=== PATIENT | male | born 1965 | race Caucasian/White ===

== ENCOUNTER 2024-02-05 10:21 | Outpatient (RCR) | payer OTHER, SELFPAY | END 2024-03-18 13:39 | disposition home or self-care (01) | LOC: OT 10:21 | DX: G81.91 Hemiplegia, unspecified affecting right dominant side (principal); M21.371 Foot drop, right foot; Z74.09 Other reduced mobility | CPT/HCPCS: 97140; 97167; 97530 ==

== ENCOUNTER 2024-02-09 10:18 | Outpatient (RCR) | payer OTHER, SELFPAY | END 2024-03-11 15:38 | disposition home or self-care (01) | LOC: PT 10:18 | DX: G81.91 Hemiplegia, unspecified affecting right dominant side (principal); Z74.09 Other reduced mobility; M21.371 Foot drop, right foot | CPT/HCPCS: 97110; 97112; 97161; 97530 ==

== ENCOUNTER 2024-02-22 11:48 | Observation (INO) | payer OTHER, SELFPAY ==
[2024-02-22] VITALS (37 sets, daily range): BP systolic 99–146; BP diastolic 68–95; PULSE 103–116; TEMP 36.7–37.5; O2SAT 94–100; BMI 22.2; BMI 24.9
[2024-02-22 11:59] LABS: Glucometer 201 mg/dL (74-106)
--- NOTE | 2024-02-22 12:04 | XR_ITS ---
The [address] [address] Patient Name: DAISY DEMARCO MRN: [id number] date: 1965 Sex: M Assigned Patient Location: ER Current Patient Location: ER Accession/Order Number: [id number] Exam Date: 02/22/2024 12:10 Report Date: 02/22/2024 12:32 At the request of: TAMIKO MARTINEZ Procedure: XR chest 1V EXAM: XR chest 1V at 1208 hours HISTORY: ams cough COMPARISON: None. TECHNIQUE: AP upright portable chest x-ray FINDINGS: There is elevation of the left hemidiaphragm. No acute infiltrate, effusion or pneumothorax is identified. Shallow inspiration is noted. The heart does not appear to be grossly enlarged and the vasculature is not distended. There is an infusion catheter in place on the right with the tip just within the right ventricle. The osseous structures are grossly intact. XR/XR chest 1V IMPRESSION: No apparent acute infiltrate or evidence of cardiac decompensation. The right-sided infusion catheter is in place. Electronically authenticated by: IKER LOPEZ Date: 02/22/2024 12:32
--- NOTE | 2024-02-22 12:04 | ECG_ITS ---
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
--- NOTE | 2024-02-22 12:05 | CT_ITS ---
The [address] [address] Patient Name: DAISY DEMARCO MRN: [id number] date: 1965 Sex: M Assigned Patient Location: ER Current Patient Location: ER Accession/Order Number: [id number] Exam Date: 02/22/2024 12:10 Report Date: 02/22/2024 12:37 At the request of: TAMIKO MARTINEZ Procedure: CT stroke head/brain wo con EXAM: CT stroke head/brain wo con HISTORY: ams COMPARISON: None available at the time of dictation. TECHNIQUE: Axial unenhanced CT images were obtained through the brain. Individualized dose optimization technique was used for the performed procedure by employing the following: Automated exposure control, adjustment of the mA and/or kV according to patient's size, and/or the use of the iterative construction technique. Coronal and sagittal reformats were performed. FINDINGS: Large area of encephalomalacia of the left MCA territory involving the left frontal parietal and temporal lobes. There is some cortical hyperdensity of the residual areas of cortex of the left parietal and frontal lobes, most consistent with residual cortical calcification. No definitive area of hemorrhage. No midline shift. Vora-white matter differentiation is preserved. Ex vacuo dilation of the left lateral ventricle. No acute osseous abnormality. Paranasal sinuses are clear. Mastoid air cells are open. Orbits are normal. Left sided craniotomy. CT/CT stroke head/brain wo con IMPRESSION: 1. No acute intracranial abnormality. No acute intracranial infarct visualized by this modality. (MRI is more sensitive). 2. Large area of encephalomalacia of the left MCA territory involving the left frontal parietal and temporal lobes. There is some cortical hyperdensity of the residual areas of cortex of the left parietal and frontal lobes, most consistent with residual cortical calcification. Electronically authenticated by: RIVERA MEYER Date: 02/22/2024 12:37
[2024-02-22 12:13] LABS: Hematocrit 39.8 % (42.0-54.0); Hemoglobin 13.9 g/dL (14.0-18.0); Mean Corpuscular HGB Conc 34.9 g/dL (29.9-35.2); Mean Corpuscular Volume 88.8 fL (80.0-94.0); Mean Platelet Volume 9.1 fL (9.5-13.5); Platelet Count 145 10^3/uL (150-450); Red Blood Count 4.48 10^6/uL (4.70-6.10); Red Cell Distribution Width 12.7 % (11.0-15.0); White Blood Count 6.8 10^3/uL (4.0-11.0)
[2024-02-22 12:19] LABS: INR 1.07; Prothrombin Time 11.3 sec (9.0-11.6)
[2024-02-22 12:31] LABS: Alanine Aminotransferase 23 U/L (16-63); Albumin Globulin Ratio 0.9; Albumin Level 3.5 g/dL (3.4-5.0); Alkaline Phosphatase 143 U/L (46-116); Anion Gap 13.5; Aspartate Amino Transferase 17 U/L (15-37); BUN Creatinine Ratio 9.5; Bilirubin Total 1.6 mg/dL (0.2-1.0); Calcium 9.3 mg/dL (8.5-10.1); Carbon Dioxide 27.4 mmol/L (21.0-32.0); Chloride 99 mmol/L (98-107); Estimated GFR (African America >60 (>=60); Estimated GFR (Non-African Ame >60 (>=60); Globulin 3.7 g/dL; Glucose 203 mg/dL (74-106); Potassium 3.9 mmol/L (3.5-5.1); Sodium 136 mmol/L (136-145); Total Protein 7.2 g/dL (6.4-8.2); Troponin I High Sensitivity 6.8 pg/mL (4.0-76.1)
[2024-02-22 12:34] LABS: Lactate/Lactic Acid 2.1 mmol/L (0.4-2.0)
[2024-02-22 12:59] LABS: Magnesium 1.3 mg/dL (1.8-2.4)
[2024-02-22] MEDS: 0.9 % SODIUM CHLORIDE 1,000 ML 500 ML IV (13:05)
[2024-02-22 13:09] LABS: Lymphocytes Absolute Manual 0.81 10^3/uL (1.20-3.80); Segmented Neut Absolute Manual 5.98 10^3/uL (1.4-6.5)
--- NOTE | 2024-02-22 13:34 | CT_ITS ---
The [address] [address] Patient Name: DAISY DEMARCO MRN: [id number] date: 1965 Sex: M Assigned Patient Location: ER Current Patient Location: ER Accession/Order Number: [id number] Exam Date: 02/22/2024 13:58 Report Date: 02/22/2024 15:32 At the request of: TAMIKO MARTINEZ Procedure: CT angio head CT ANGIOGRAPHY NECK and HEAD: 02/22/2024 1:58 PM EDT Clinical History:neurological deficit Comparison: None available . Contrast-enhanced helically acquired data per protocol. From this dataset volumetric recons in MIP mode were generated and reviewed. 3-D images were rendered on a separate workstation. NASCET criteria were utilized. INNOMINATE: Widely patent. RIGHT SUBCLAVIAN: Widely patent. RIGHT VERTEBRAL: Medium-sized blood vessel with modest disease at its origin. It is widely patent throughout the rest of its extradural course LEFT SUBCLAVIAN: Moderate disease along its proximal aspects. LEFT VERTEBRAL: A small to medium-sized blood vessel is partially obscured near its origin by artifact from juxtaposed dense venous contrast. Further distally it is unremarkable throughout the rest of its extradural course. RIGHT CAROTID SYSTEM: CCA demonstrates fairly mild undulating patchy disease.. There is soft and calcific disease at the bifurcation extending into the proximal aspects of the ICA. Less than 40% diameter reduction proximal ICA. High cervical ICA is widely patent. The ECA demonstrates mild narrowing along its proximal aspects. LEFT CAROTID SYSTEM: CCA demonstrates mild eccentric disease in its mid to distal aspects. There is somewhat concentric soft disease at the bifurcation extending into the very proximal aspects of the ICA and ECA. Less than 40% diameter reduction origin and very proximal. Mid and distal cervical ICA is widely patent. ECA demonstrates fairly mild narrowing along its proximal aspects. INTRACRANIAL: VERTEBRALS: The right is a medium-sized blood vessel with short segment mild disease. The left is a small to medium-sized blood vessel with mild disease. It terminates as PICA. PICAs: Patent. BASILAR: A medium-sized blood vessel with moderate short segment narrowing by soft disease along its proximal aspects. AICAs: Not seen SUPERIOR CEREBELLARS: Patent POSTERIOR CEREBRALS: Right P1 is aplastic. Left P1 is hypoplastic. P2 segments are patent and fairly symmetric. INTRACRANIAL ICAs: Patent. Patchy calcific disease on both sides. Areas of mild to modest narrowing bilaterally, left a little greater than right OPHTHALMIC ARTERIES: Patent. ANTERIOR CEREBRALS: A1 segments are patent. Acomm is longitudinally oriented and patent. A2 segments are patent and symmetric. MIDDLE CEREBRALS: Right M1 is unremarkable. Insular loops of the right MCA are grossly unremarkable in caliber and in number. Left M1 significantly tapers just distal to its origin. A tiny vessel off the amputated left M1 segment segments extends into the insular region. No other insular loops are contrast opacified. P-COMMS: Medium-sized vessels. Moderate short segment narrowing posterior aspect right P-comm and modest to moderate disease distal at the junction of left P1 and P2. OTHER: None CT/CT angio head IMPRESSION: 1. No moderate or significant disease involving an extradural cerebral vessel. Stenoses at both cervical carotid bifurcations as described. 2. 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 It does give off a solitary tiny artery which extends into the insular region. This all goes along with extensive chronic left MCA territory infarct. 3. Moderate stenosis proximal basilar and in the posterior aspects right P-comm. Modest to moderate disease junction left P1 and P2. All CT scans at this facility use dose modulation, iterative reconstruction, and/or weight based dosing when appropriate to reduce radiation dose to as low as reasonably achievable. Electronically authenticated by: IZABELA FREITAS Date: 02/22/2024 15:32
--- NOTE | 2024-02-22 13:34 | CT_ITS ---
The [address] [address] Patient Name: DAISY DEMARCO MRN: [id number] date: 1965 Sex: M Assigned Patient Location: ER Current Patient Location: ER Accession/Order Number: [id number] Exam Date: 02/22/2024 13:58 Report Date: 02/22/2024 15:32 At the request of: TAMIKO MARTINEZ Procedure: CT angio neck CT ANGIOGRAPHY NECK and HEAD: 02/22/2024 1:58 PM EDT Clinical History:neurological deficit Comparison: None available . Contrast-enhanced helically acquired data per protocol. From this dataset volumetric recons in MIP mode were generated and reviewed. 3-D images were rendered on a separate workstation. NASCET criteria were utilized. INNOMINATE: Widely patent. RIGHT SUBCLAVIAN: Widely patent. RIGHT VERTEBRAL: Medium-sized blood vessel with modest disease at its origin. It is widely patent throughout the rest of its extradural course LEFT SUBCLAVIAN: Moderate disease along its proximal aspects. LEFT VERTEBRAL: A small to medium-sized blood vessel is partially obscured near its origin by artifact from juxtaposed dense venous contrast. Further distally it is unremarkable throughout the rest of its extradural course. RIGHT CAROTID SYSTEM: CCA demonstrates fairly mild undulating patchy disease.. There is soft and calcific disease at the bifurcation extending into the proximal aspects of the ICA. Less than 40% diameter reduction proximal ICA. High cervical ICA is widely patent. The ECA demonstrates mild narrowing along its proximal aspects. LEFT CAROTID SYSTEM: CCA demonstrates mild eccentric disease in its mid to distal aspects. There is somewhat concentric soft disease at the bifurcation extending into the very proximal aspects of the ICA and ECA. Less than 40% diameter reduction origin and very proximal. Mid and distal cervical ICA is widely patent. ECA demonstrates fairly mild narrowing along its proximal aspects. INTRACRANIAL: VERTEBRALS: The right is a medium-sized blood vessel with short segment mild disease. The left is a small to medium-sized blood vessel with mild disease. It terminates as PICA. PICAs: Patent. BASILAR: A medium-sized blood vessel with moderate short segment narrowing by soft disease along its proximal aspects. AICAs: Not seen SUPERIOR CEREBELLARS: Patent POSTERIOR CEREBRALS: Right P1 is aplastic. Left P1 is hypoplastic. P2 segments are patent and fairly symmetric. INTRACRANIAL ICAs: Patent. Patchy calcific disease on both sides. Areas of mild to modest narrowing bilaterally, left a little greater than right OPHTHALMIC ARTERIES: Patent. ANTERIOR CEREBRALS: A1 segments are patent. Acomm is longitudinally oriented and patent. A2 segments are patent and symmetric. MIDDLE CEREBRALS: Right M1 is unremarkable. Insular loops of the right MCA are grossly unremarkable in caliber and in number. Left M1 significantly tapers just distal to its origin. A tiny vessel off the amputated left M1 segment segments extends into the insular region. No other insular loops are contrast opacified. P-COMMS: Medium-sized vessels. Moderate short segment narrowing posterior aspect right P-comm and modest to moderate disease distal at the junction of left P1 and P2. OTHER: None CT/CT angio neck IMPRESSION: 1. No moderate or significant disease involving an extradural cerebral vessel. Stenoses at both cervical carotid bifurcations as described. 2. 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 It does give off a solitary tiny artery which extends into the insular region. This all goes along with extensive chronic left MCA territory infarct. 3. Moderate stenosis proximal basilar and in the posterior aspects right P-comm. Modest to moderate disease junction left P1 and P2. All CT scans at this facility use dose modulation, iterative reconstruction, and/or weight based dosing when appropriate to reduce radiation dose to as low as reasonably achievable. Electronically authenticated by: IZABELA FREITAS Date: 02/22/2024 15:32
[2024-02-22 13:39] LABS: Bilirubin Urine NEGATIVE (NEGATIVE); Blood Urine NEGATIVE (NEGATIVE); Clarity Urine CLEAR (CLEAR); Color Urine YELLOW (YELLOW); Glucose Urine UA 100 mg/dL (NEGATIVE); Ketones Urine NEGATIVE (NEGATIVE); Leukocyte Esterase Urine NEGATIVE (NEGATIVE); Nitrite Urine NEGATIVE (NEGATIVE); Protein Urine TRACE mg/dL (NEG/TRACE); Specific Gravity Urine 1.015 (1.005-1.025); Urobilinogen Urine 0.2 EU/dL (0.2-1.0)
[2024-02-22 13:45] LABS: Urine Microscopic Indicated NO
[2024-02-22 13:57] LABS: Internal Control Within Normal Limits; SARS-CoV-2 Ag NEGATIVE (NEGATIVE)
[2024-02-22] MEDS: MAGNESIUM SULFATE IN WATER 2 GM/50 ML PREMIX IV (14:16)
[2024-02-22] MEDS: KETOROLAC TROMETHAMINE 30 MG/ML VIAL 15 MG IVP (14:17)
[2024-02-22] MEDS: BENZOCAINE 30 ML, lidocaine HCL 15 ML MM (14:18)
--- NOTE | 2024-02-22 14:57 | ED_ITS ---
HPI - Altered Mental Status General Chief Complaint: Altered Mental Status Stated Complaint: stroke Time Seen by Provider: 02/22/24 11:54 Source: patient Mode of arrival: walk-in History of Present Illness HPI narrative: The patient is presenting to us after his called the EMS, have a history of a stroke 2 years ago with a remaining weakness in the upper right extremity as well as the lower extremity. The patient mostly dependent on his except for using his left hand to feed himself. According to the today when he woke up at 11 AM and she presented almost around 12 PM to us she noted that he is more weak and he is falling asleep very quickly. The patient had no difficulty speaking more than his baseline as well as no specific weakness but generalized weakness. He did complain of coughing over the last few days, he also have some dental pain Related Data Home Medications ?Medication ?Instructions ?Recorded ?Confirmed atorvastatin 40 mg tablet 40 mg PO DAILY 02/22/24 02/22/24 baclofen 5 mg tablet 5 mg PO Q12H PRN spasms 02/22/24 02/22/24 levetiracetam 500 mg tablet 500 mg PO Q12H 02/22/24 02/22/24 metformin 500 mg tablet,extended 500 mg PO DAILY 02/22/24 02/22/24 release 24 hr mirtazapine 45 mg tablet 45 mg PO .QHS 02/22/24 02/22/24 tamsulosin 0.4 mg capsule 0.4 mg PO DAILY 02/22/24 02/22/24 Allergies Allergy/AdvReac Type Severity Reaction Status Date / Time No Known Drug Allergies Allergy Verified 02/22/24 11:52 Review of Systems ROS Status of ROS 10 or more systems reviewed and unremark able except as noted in history and below Exam Narrative Exam Narrative: Nurses notes and vital signs reviewed and patient is not hypoxic. General: Well-appearing and in no apparent distress. Skin: Warm, dry, no pallor noted. No rash. Head: Normocephalic, atraumatic. Neck: Supple, non-tender. Eye: Pupils are equal, round and EOMI. No scleral icterus. Ears, Nose, Mouth, and Throat: Very poor dental hygiene with a decayed tooth mostly in the tooth #20 as well as 19 with tenderness on palpation Cardiovascular: Regular Rate and Rhythm without murmur, gallop or rub. Respiratory: No accessory muscle use or respiratory distress. Lungs are clear to auscultation, no wheezing, rales or rhonchi Chest Wall: no tenderness Back: No midline thoracic or lumbar vertebral tenderness. No CVA tenderness Musculoskeletal: normal ROM, no calf or popliteal tenderness, no lower extremity edema/swelling GI: Abdomen is soft, non-distended. Normal bowel sounds. No masses appreciated. No tenderness to palpation. No rebound, guarding, or rigidity noted. Neurological: The patient is oriented x 4 but he have right upper and lower extremity complete weakness with no ability for elevation or use, left side was completely normal with a NIH score is 9 due to his deficits from previous stroke Constitutional Vital Signs, click to edit/add: Last Vital Signs Temp 98.0 F 02/22/24 11:52 Pulse 106 H 02/22/24 15:00 Resp 17 02/22/24 15:00 BP 132/80 02/22/24 14:30 Pulse Ox 100 02/22/24 13:50 O2 Del Method Room Air 02/22/24 11:52 Course Vital Signs Vital signs: Vital Signs Temperature 98.0 F 02/22/24 11:52 Pulse Rate 116 H 02/22/24 11:52 Respiratory Rate 18 02/22/24 11:52 Blood Pressure 140/95 H 02/22/24 11:52 Pulse Oximetry 96 02/22/24 11:52 Oxygen Delivery Method Room Air 02/22/24 11:52 Temperature 98.0 F 02/22/24 11:52 Pulse Rate 106 H 02/22/24 15:00 Respiratory Rate 17 02/22/24 15:00 Blood Pressure 132/80 02/22/24 14:30 Pulse Oximetry 100 02/22/24 13:50 Oxygen Delivery Method Room Air 02/22/24 11:52 MDM - Altered Mental Status MDM Narrative Medical decision making narrative: The patient EKG upon presentation is showing sinus tachycardia with a heart rate of [address] elevation or depression CBC showed no acute pathology the chemistry was showing magnesium of 1.3 and lactic acid 2.1 Urinalysis showed no infection as well as chest x-ray CT of the head shows significant changes due to the old stroke and the patient case was discussed with in neurology service The plan was to get a CT angio of the head and neck to rule out any new stroke in the outside where he had a stroke to begin with 2 years ago The patient tachycardia get better with IV fluid and he also was provided with the Toradol for dental care as well as local pain medication for the pain in his teeth Troponin was repeated twice and it was negative The patient CT angio of the head and neck were discussed with Dr. Montoya and for now she just recommended the patient be admitted for further workup. The patient repeated lactic was elevated at we will repeated again just to make sure that the patient was provided IV fluid and there is no source of infection at the moment Patient care was discussed with Dr. Mcnair and he agreed on admitting the patient for further workup Lab Data Labs: Lab Results 02/22/24 02/22/24 02/22/24 Range/Units 11:57 12:00 13:26 WBC 6.8 (4.0-11.0) 10^3/uL RBC 4.48 L (4.70-6.10) 10^6/uL Hgb 13.9 L (14.0-18.0) g/dL Hct 39.8 L (42.0-54.0) % MCV 88.8 (80.0-94.0) fL MCH 31.0 (25.9-34.0) pg MCHC 34.9 (29.9-35.2) g/dL RDW 12.7 (11.0-15.0) % Plt Count 145 L (150-450) 10^3/uL MPV 9.1 L (9.5-13.5) fL Seg Neuts % (Manual) 88.0 H (43.0-75.0) Lymphocytes % (Manual) 12.0 L (20.5-60.0) % Monocytes % (Manual) 0.0 L (1.7-12.0) % Eosinophils % (Manual) 0.0 L (0.9-7.0) % Basophils % (Manual) 0.0 L (0.2-2.0) % Neutrophils # (Manual) 5.98 (1.4-6.5) 10^3/uL Lymphocytes # (Manual) 0.81 L (1.20-3.80) 10^3/uL Monocytes # (Manual) 0.00 L (0.30-0.80) 10^3/uL Eosinophils # (Manual) 0.00 (0.00-0.70) 10^3/uL Basophils # (Manual) 0.00 (0.00-0.10) 10^3/uL PT 11.3 (9.0-11.6) sec INR 1.07 Sodium 136 (136-145) mmol/L Potassium 3.9 (3.5-5.1) mmol/L Chloride 99 (98-107) mmol/L Carbon Dioxide 27.4 (21.0-32.0) mmol/L Anion Gap 13.5 BUN 10.0 (7.0-18.0) mg/dL Creatinine 1.05 (0.70-1.30) mg/dL Est GFR ( Amer) >60 (>=60) Est GFR (Non-Af Amer) >60 (>=60) BUN/Creatinine Ratio 9.5 Glucose 203 H (74-106) mg/dL Lactate 2.1 H (0.4-2.0) mmol/L Calcium 9.3 (8.5-10.1) mg/dL Magnesium 1.3 L (1.8-2.4) mg/dL Total Bilirubin 1.6 H (0.2-1.0) mg/dL AST 17 (15-37) U/L ALT 23 (16-63) U/L Alkaline Phosphatase 143 H (46-116) U/L Troponin I High Sens 6.8 (4.0-76.1) pg/mL Total Protein 7.2 (6.4-8.2) g/dL Albumin 3.5 (3.4-5.0) g/dL Globulin 3.7 g/dL Albumin/Globulin Ratio 0.9 Urine Color (YELLOW) Urine Clarity (CLEAR) Urine pH (5.0-9.0) Ur Specific [place] (1.005-1.025) Urine Protein (NEG/TRACE) mg/dL Urine Glucose (UA) (NEGATIVE) mg/dL Urine Ketones (NEGATIVE) mg/dL Urine Occult Blood (NEGATIVE) Urine Nitrite (NEGATIVE) Urine Bilirubin (NEGATIVE) Urine Urobilinogen (0.2-1.0) EU/dL Ur Leukocyte Esterase (NEGATIVE) SARS-CoV-2 Ag (CV2AG) Negative (NEGATIVE) POC Glucose 201 H (74-106) mg/dL 02/22/24 02/22/24 02/22/24 Range/Units 13:31 14:50 15:19 WBC (4.0-11.0) 10^3/uL RBC (4.70-6.10) 10^6/uL Hgb (14.0-18.0) g/dL Hct (42.0-54.0) % MCV (80.0-94.0) fL MCH (25.9-34.0) pg MCHC (29.9-35.2) g/dL RDW (11.0-15.0) % Plt Count (150-450) 10^3/uL MPV (9.5-13.5) fL Seg Neuts % (Manual) (43.0-75.0) Lymphocytes % (Manual) (20.5-60.0) % Monocytes % (Manual) (1.7-12.0) % Eosinophils % (Manual) (0.9-7.0) % Basophils % (Manual) (0.2-2.0) % Neutrophils # (Manual) (1.4-6.5) 10^3/uL Lymphocytes # (Manual) (1.20-3.80) 10^3/uL Monocytes # (Manual) (0.30-0.80) 10^3/uL Eosinophils # (Manual) (0.00-0.70) 10^3/uL Basophils # (Manual) (0.00-0.10) 10^3/uL PT (9.0-11.6) sec INR Sodium (136-145) mmol/L Potassium (3.5-5.1) mmol/L Chloride (98-107) mmol/L Carbon Dioxide (21.0-32.0) mmol/L Anion Gap BUN (7.0-18.0) mg/dL Creatinine (0.70-1.30) mg/dL Est GFR ( Amer) (>=60) Est GFR (Non-Af Amer) (>=60) BUN/Creatinine Ratio Glucose (74-106) mg/dL Lactate 3.3 H* (0.4-2.0) mmol/L Calcium (8.5-10.1) mg/dL Magnesium (1.8-2.4) mg/dL Total Bilirubin (0.2-1.0) mg/dL AST (15-37) U/L ALT (16-63) U/L Alkaline Phosphatase (46-116) U/L Troponin I High Sens 8.4 (4.0-76.1) pg/mL Total Protein (6.4-8.2) g/dL Albumin (3.4-5.0) g/dL Globulin g/dL Albumin/Globulin Ratio Urine Color Yellow (YELLOW) Urine Clarity Clear (CLEAR) Urine pH 6.0 (5.0-9.0) Ur Specific [place] 1.015 (1.005-1.025) Urine Protein Trace (NEG/TRACE) mg/dL Urine Glucose (UA) 100 A (NEGATIVE) mg/dL Urine Ketones Negative (NEGATIVE) mg/dL Urine Occult Blood Negative (NEGATIVE) Urine Nitrite Negative (NEGATIVE) Urine Bilirubin Negative (NEGATIVE) Urine Urobilinogen 0.2 (0.2-1.0) EU/dL Ur Leukocyte Esterase Negative (NEGATIVE) SARS-CoV-2 Ag (CV2AG) (NEGATIVE) POC Glucose (74-106) mg/dL Discharge Plan Discharge Chief Complaint: Altered Mental Status Clinical Impression: Altered mental status, Generalized muscle weakness, Neurological deficit present Patient Disposition: Admitted As Inpatient Time of Disposition Decision: 15:56
[2024-02-22 15:47] LABS: Troponin I High Sensitivity 8.4 pg/mL (4.0-76.1)
[2024-02-22 15:50] LABS: Lactate/Lactic Acid 3.3 mmol/L (0.4-2.0)
--- NOTE | 2024-02-22 16:52 | P.HP_ITS ---
HPI H&P: HPI History of Present Illness Chief complaint: stroke, GENERALIZED WEAKNESS, STROKE-LIKE SYMPTOMS Narrative: Last several days patient's had issues with sleeping secondary to abscessed tooth. Slept well last night, woke up this morning late does not normally have to wake up and she did this time, difficulty standing, was sitting at the bedside trying to urinate and fell backwards. Other than being fatigued did not notice any other focal neurological deficits. In ER stroke workup was completed, stroke team consulted, no evidence for new stroke noted on CT scans or on physical examination. Opioid HPI Opioid Management Most Recent Pain and Opioid Data: Last Pain Scale 5 02/22/24 14:17 Last Pain Assessment 02/22/24 17:03 Last MAR Pain Assessment 02/22/24 14:17 Last ORT Total Score 3 02/22/24 16:40 Last ORT Risk Category Low Risk 02/22/24 16:40 Review of Systems ROS Status of ROS 10 or more systems reviewed and unremark able except as noted in history and below PFSH PFS Medical History (Updated 02/22/24 @ 17:09 by Serena Biggs RN) Hyperlipidemia ?E78.5 - Hyperlipidemia, unspecified (ICD-10) Diabetes ?E11.9 - Type 2 diabetes mellitus without complications (ICD-10) Seizure disorder ?G40.909 - Epilepsy, unspecified, not intractable, without status epilepticus (ICD-10) Colon cancer ?C18.9 - Malignant neoplasm of colon, unspecified (ICD-10) CVA (cerebral vascular accident) ?I63.9 - Cerebral infarction, unspecified (ICD-10) Surgical History (Updated 02/22/24 @ 17:11 by Serena Biggs RN) History of colon resection ?Z90.49 - Acquired absence of other specified parts of digestive tract (ICD- 10) History of cranioplasty ?Z98.890 - Other specified postprocedural states (ICD-10) H/O craniotomy ?Z98.890 - Other specified postprocedural states (ICD-10) Family History (Updated 02/22/24 @ 17:13 by Serena Biggs RN) Father Family history of COPD (chronic obstructive pulmonary disease) Family history of cancer Family history of stroke Mother Family history of stroke Social History (Updated 02/22/24 @ 17:13 by Serena Biggs RN) Within the past year, how often did you have a drink containing alcohol: never Score interpretation: A score less than 4 is consistent with normal alcohol consumption. Smoking status: Former smoker Non-prescribed substance use: denies use Highest level of school completed/degree received: high school graduate Meds Home Medications and Allergies Home Medications ?Medication ?Instructions ?Recorded ?Confirmed ?Type aspirin 81 mg capsule 81 mg PO DAILY 02/22/24 02/22/24 History atorvastatin 40 mg tablet 40 mg PO DAILY 02/22/24 02/22/24 History baclofen 5 mg tablet 5 mg PO Q12H PRN spasms 02/22/24 02/22/24 History levetiracetam 500 mg tablet 500 mg PO Q12H 02/22/24 02/22/24 History loratadine 10 mg tablet 10 mg PO DAILY 02/22/24 02/22/24 History (Allerclear) metformin 500 mg tablet,extended 500 mg PO DAILY 02/22/24 02/22/24 History release 24 hr mirtazapine 45 mg tablet 45 mg PO .QHS 02/22/24 02/22/24 History tamsulosin 0.4 mg capsule 0.4 mg PO DAILY 02/22/24 02/22/24 History Allergies Allergy/AdvReac Type Severity Reaction Status Date / Time No Known Drug Allergies Allergy Verified 02/22/24 11:52 Exam Constitutional Vital Signs, click to edit/add: Last Vital Signs Temp 98.0 F 02/22/24 11:52 Pulse 104 H 02/22/24 16:40 Resp 20 02/22/24 16:30 BP 115/76 02/22/24 16:00 Pulse Ox 100 02/22/24 13:50 O2 Del Method Room Air 02/22/24 11:52 Documenting provider has reviewed patient's vital signs: yes Common normals: no apparent distress Respiratory Common normals: normal respiratory effort, no retractions and no use of accesso ry muscles Cardio Common normals: regular rate, regular rhythm and no murmurs GI Common normals: Normal to inspection, nondistended, normoactive bowel sounds present and soft to palpation; tender (Diffusely tender but may be more in the upper abdomen) Neuro Common normals: does not move all extremities (Some movement of right lower extremity, no movement of right upper extremit) Results Labs Labs: Short CBC 02/22/24 Range/Units 12:00 WBC 6.8 (4.0-11.0) 10^3/uL Hgb 13.9 L (14.0-18.0) g/dL Hct 39.8 L (42.0-54.0) % Plt Count 145 L (150-450) 10^3/uL BMP 02/22/24 12:00 Sodium 136 Potassium 3.9 Chloride 99 Carbon Dioxide 27.4 BUN 10.0 Creatinine 1.05 Glucose 203 H Calcium 9.3 Liver Function 02/22/24 Range/Units 12:00 Total Bilirubin 1.6 H (0.2-1.0) mg/dL AST 17 (15-37) U/L ALT 23 (16-63) U/L Alkaline Phosphatase 143 H (46-116) U/L Albumin 3.5 (3.4-5.0) g/dL Urine 02/22/24 Range/Units 13:31 Urine Color Yellow (YELLOW) Urine Clarity Clear (CLEAR) Urine pH 6.0 (5.0-9.0) Ur Specific [place] 1.015 (1.005-1.025) Urine Protein Trace (NEG/TRACE) mg/dL Urine Glucose (UA) 100 A (NEGATIVE) mg/dL Assessment and Plan Assessment and Plan (1) Hypomagnesemia: (2) Neurological deficit present: (3) Generalized muscle weakness: (4) Altered mental status: Plan Admission: Patient with a history of short of 2 years ago of stroke. Presented in a similar fashion. So far patient is improving per . Altered mental status severe weakness noted on admission and slowly improving. Altered mental status-slowly improving, still need to rule out possibility of a stroke. Family not wanting to be aggressive in that regard. Will currently maintain aspirin. Since no new focal neurological deficits were noted. Consider MRI scan Positive lactate with mild diffuse upper abdominal tenderness, checking on labs, consider CT scan abdomen and pelvis tomorrow, had 1 a couple months ago for follow-up on his colon cancer, will try to obtain outside records Jaw pain-possible abscessed tooth, consider CT scan of the area, starting on IV antibiotics to cover that possibility an alternate source of infection Iron deficiency anemia-monitor daily, consider Hemoccults if dropping Thrombocytopenia-monitor daily L Elevated LFTs-checking amylase and lipase, states has not had that in the past, repeat LFTs in a.m. NIDDM-insulin sliding scale Severe hypomagnesemia-supplemented in ER, repeat labs in a.m. start oral supplementation Admission findings: Altered mental status in a patient with coronary artery disease and possibly metastatic colon cancer, stopped chemotherapy 20 months ago after his stroke. Blood cultures pending, that will take 2 days, continue antibiotics, medically necessary treatment will span 2 midnights. Inpatient status.
[2024-02-22 17:45] LABS: Amylase 38 U/L (25-115)
[2024-02-22] MEDS: LACTATED RINGER'S SOLUTION 1,000 ML 100 ML IV (17:53)
[2024-02-22] MEDS: CEFTRIAXONE 1,000 MG in 0.9 % SODIUM CHLORIDE 50 ML 100 MG IV (17:54)
[2024-02-22 17:58] LABS: Glucometer 162 mg/dL (74-106)
[2024-02-22 18:08] LABS: Ammonia 31 umol/L (11-32)
[2024-02-22 19:19] LABS: Amphetamine Screen Urine NEGATIVE (NEGATIVE); Barbiturates Screen Urine NEGATIVE (NEGATIVE); Benzodiazepines Screen Urine NEGATIVE (NEGATIVE); Buprenorphine Screen Urine NEGATIVE (NEGATIVE); Cannabinoid Screen Urine NEGATIVE (NEGATIVE); Cocaine Screen Urine NEGATIVE (NEGATIVE); Methadone Screen Urine NEGATIVE (NEGATIVE); Methamphetamines Screen Urine NEGATIVE (NEGATIVE); Opiate Screen Urine NEGATIVE (NEGATIVE); Oxycodone Screen Urine NEGATIVE (NEGATIVE); Phencyclidine Screen Urine NEGATIVE (NEGATIVE); Tricyclic Antidepressant Urine NEGATIVE (NEGATIVE)
[2024-02-22 19:32] LABS: Glucometer 159 mg/dL (74-106)
[2024-02-22] MEDS: LEVOFLOXACIN IN DEXTROSE 5 % 750 MG/150 ML PREMIX 100 MG IV (21:35)
[2024-02-22] MEDS: MIRTAZAPINE 15 MG TABLET 45 MG PO (21:35)
[2024-02-22] MEDS: LEVETIRACETAM 500 MG TABLET PO (21:35)
[2024-02-22] MEDS: MAGNESIUM OXIDE 400 MG TABLET PO (21:35)
[2024-02-22] MEDS: ACETAMINOPHEN 500 MG TABLET 1000 MG PO (21:54)
[2024-02-23] VITALS (9 sets, daily range): BP systolic 101–148; BP diastolic 69–89; PULSE 92–112; TEMP 36.3–37; O2SAT 92–95
[2024-02-23] MEDS: BACLOFEN 10 MG TABLET 5 MG PO (00:05)
[2024-02-23 05:45] LABS: Basophils Percent Auto 0.4 % (0.2-2.0); Eosinophils Absolute Auto 0.1 10^3/uL (0.0-0.7); Eosinophils Percent Auto 1.7 % (0.9-7.0); Hematocrit 33.5 % (42.0-54.0); Hemoglobin 11.7 g/dL (14.0-18.0); Immature Granulocytes Abs Auto 0.04 10^3/uL (0.00-0.03); Immature Granulocytes Pct Auto 0.8 % (0.0-0.5); Lymphocytes Absolute Auto 0.8 10^3/uL (1.2-3.8); Mean Corpuscular HGB Conc 34.9 g/dL (29.9-35.2); Mean Corpuscular Volume 88.6 fL (80.0-94.0); Mean Platelet Volume 9.1 fL (9.5-13.5); Monocytes Absolute Auto 0.7 10^3/uL (0.3-0.8); Monocytes Percent Auto 12.4 % (1.7-12.0); Neutrophils Absolute Auto 3.7 10^3/uL (1.4-6.5); Neutrophils Percent Auto 69.7 % (43.0-75.0); Platelet Count 118 10^3/uL (150-450); Red Blood Count 3.78 10^6/uL (4.70-6.10); Red Cell Distribution Width 13.1 % (11.0-15.0); White Blood Count 5.3 10^3/uL (4.0-11.0)
[2024-02-23] MEDS: LACTATED RINGER'S SOLUTION 1,000 ML 100 ML IV (05:59)
[2024-02-23 06:04] LABS: Alanine Aminotransferase 22 U/L (16-63); Albumin Globulin Ratio 0.9; Albumin Level 2.8 g/dL (3.4-5.0); Alkaline Phosphatase 111 U/L (46-116); Anion Gap 13.3; Aspartate Amino Transferase 20 U/L (15-37); BUN Creatinine Ratio 13.5; Bilirubin Total 1.1 mg/dL (0.2-1.0); Calcium 8.5 mg/dL (8.5-10.1); Carbon Dioxide 26.8 mmol/L (21.0-32.0); Chloride 102 mmol/L (98-107); Estimated GFR (African America >60 (>=60); Estimated GFR (Non-African Ame >60 (>=60); Globulin 3.1 g/dL; Glucose 145 mg/dL (74-106); Magnesium 1.8 mg/dL (1.8-2.4); Potassium 4.1 mmol/L (3.5-5.1); Sodium 138 mmol/L (136-145); Total Protein 5.9 g/dL (6.4-8.2)
--- NOTE | 2024-02-23 07:49 | CM.NOTE ---
Rounds made with Dr. cMnair, pt lethargic this AM. Pt difficult to arouse, pt does open eyes but falls back to sleep quickly. Dr. Mcnair will come back up to re-evaluate pt.
[2024-02-23 07:51] LABS: Glucometer 189 mg/dL (74-106)
--- NOTE | 2024-02-23 08:23 | P.PN_ITS ---
Exam Constitutional Vital Signs, click to edit/add: Last Vital Signs Temp 98.5 F 02/23/24 07:43 Pulse 92 H 02/23/24 08:00 Resp 18 02/23/24 07:43 BP 121/81 02/23/24 07:43 Pulse Ox 94 L 02/23/24 07:43 O2 Del Method Room Air 02/23/24 07:43 Progress Note: Objective Labs Labs: Short CBC 02/22/24 02/23/24 Range/Units 12:00 05:22 WBC 6.8 5.3 (4.0-11.0) 10^3/uL Hgb 13.9 L 11.7 L (14.0-18.0) g/dL Hct 39.8 L 33.5 L (42.0-54.0) % Plt Count 145 L 118 L (150-450) 10^3/uL BMP 02/22/24 02/23/24 12:00 05:22 Sodium 136 138 Potassium 3.9 4.1 Chloride 99 102 Carbon Dioxide 27.4 26.8 BUN 10.0 13.0 Creatinine 1.05 0.96 Glucose 203 H 145 H Calcium 9.3 8.5 Liver Function 02/22/24 02/23/24 Range/Units 12:00 05:22 Total Bilirubin 1.6 H 1.1 H (0.2-1.0) mg/dL AST 17 20 (15-37) U/L ALT 23 22 (16-63) U/L Alkaline Phosphatase 143 H 111 (46-116) U/L Albumin 3.5 2.8 L (3.4-5.0) g/dL Urine 02/22/24 Range/Units 13:31 Urine Color Yellow (YELLOW) Urine Clarity Clear (CLEAR) Urine pH 6.0 (5.0-9.0) Ur Specific [place] 1.015 (1.005-1.025) Urine Protein Trace (NEG/TRACE) mg/dL Urine Glucose (UA) 100 A (NEGATIVE) mg/dL Progress Note: A&P Assessment and Plan (1) Hypomagnesemia: (2) Neurological deficit present: (3) Generalized muscle weakness: (4) Altered mental status: Plan Admission: Patient with a history of short of 2 years ago of stroke. Presented in a similar fashion. So far patient is improving per . Altered mental status severe weakness noted on admission and slowly improving. Altered mental status-slowly improving, still need to rule out possibility of a stroke. Family not wanting to be aggressive in that regard. Will currently maintain aspirin. Since no new focal neurological deficits were noted. Consider MRI scan Positive lactate with mild diffuse upper abdominal tenderness, checking on labs, consider CT scan abdomen and pelvis tomorrow, had 1 a couple months ago for follow-up on his colon cancer, will try to obtain outside records Jaw pain-possible abscessed tooth, consider CT scan of the area, starting on IV antibiotics to cover that possibility an alternate source of infection Iron deficiency anemia-monitor daily, consider Hemoccults if dropping Thrombocytopenia-monitor daily Elevated LFTs-checking amylase and lipase, states has not had that in the past, repeat LFTs in a.m. NIDDM-insulin sliding scale Severe hypomagnesemia-supplemented in ER, repeat labs in a.m. start oral supplementation Admission findings: Altered mental status in a patient with coronary artery disease and possibly metastatic colon cancer, stopped chemotherapy 20 months ago after his stroke. Blood cultures pending, that will take 2 days, continue antibiotics, medically necessary treatment will span 2 midnights. Inpatient status. ?
[2024-02-23] MEDS: ACETAMINOPHEN 500 MG TABLET 1000 MG PO (09:16)
[2024-02-23] MEDS: ASPIRIN 81 MG TAB.CHEW PO (09:16)
[2024-02-23] MEDS: LEVETIRACETAM 500 MG TABLET PO (09:16)
[2024-02-23] MEDS: MAGNESIUM OXIDE 400 MG TABLET PO (09:16)
[2024-02-23] MEDS: CETIRIZINE HCL 10 MG TABLET PO (09:17)
[2024-02-23] MEDS: ATORVASTATIN CALCIUM 40 MG TABLET PO (09:17)
[2024-02-23] MEDS: TAMSULOSIN HCL 0.4 MG CAPSULE PO (09:17)
[2024-02-23] MEDS: INSULIN ASPART 300 UNIT/3 ML PEN SUBQ (09:18)
--- NOTE | 2024-02-23 09:26 | XR_ITS ---
[address] [address] Patient Name: DAISY DEMARCO MRN: [id number] date: 1965 Sex: M Assigned Patient Location: [place] Current Patient Location: [place] Accession/Order Number: [id number] Exam Date: 02/23/2024 09:45 Report Date: 02/23/2024 10:10 At the request of: MAGALIE FORBES Procedure: XR acute abdomen series EXAMINATION: XR acute abdomen series HISTORY: hx colon cancer - abd pain COMPARISON: XR chest 02/22/2024 FINDINGS: LUNGS: Persistent elevation of left hemidiaphragm. Lungs are clear. MEDIASTINUM: No abnormal widening. Right-sided Port-A-Cath with tip just below the cavoatrial junction. BOWEL GAS PATTERN: Non-obstructed. No abnormal dilation or suspicious fluid levels. Moderate stool burden. FREE AIR: None. CALCIFICATIONS: None significant. BONES: No fracture or visible bone lesion. OTHER: Negative. XR/XR acute abdomen series IMPRESSION: 1. No appreciable acute cardiopulmonary process. Persistent elevation of left hemidiaphragm. 2. Normal bowel gas pattern. Moderate stool burden. Electronically authenticated by: SEEMA PHILLIPS Date: 02/23/2024 10:10
--- NOTE | 2024-02-23 09:36 | P.DS_ITS ---
DS: Providers Provider Date of admission: 02/22/24 16:26 Primary care physician: Non-Staff Physician, Consults: 02/22/24 13:19 Consult to Telestroke Routine Reason for consultation: new weakness 02/22/24 16:42 Occupational Therapy Eval and Treat Routine Reason for consultation: Only if needed for Rehab Has provider been notified: No Physical Therapy Eval and Treat Routine Reason for consultation: Eval and Treat Has provider been notified: No DS: Diagnosis Discharge Diagnosis (1) Hypomagnesemia: (2) Neurological deficit present: (3) Generalized muscle weakness: (4) Altered mental status: Plan Admission: Patient with a history of short of 2 years ago of stroke. Presented in a similar fashion. Improved at the time of discharge Altered mental status-slowly improving, still need to rule out possibility of a stroke. Improving at the time of discharge Positive lactate with mild diffuse upper abdominal tenderness, improving at the time of discharge Jaw pain-possible abscessed tooth, see CT scan report Iron deficiency anemia-monitor daily, diminished somewhat on admission and discharge. Thrombocytopenia-lower at the time of discharge, follow-up as an outpatient Elevated LFTs-improving at the time of discharge NIDDM-insulin sliding scale Severe hypomagnesemia-supplemented in ER, improved at the time of discharge Admission findings: Altered mental status in a patient with coronary artery disease and possibly metastatic colon cancer, stopped chemotherapy 20 months ago after his stroke. Blood cultures pending, that will take 2 days, continue antibiotics, medically necessary treatment will span 2 midnights. Inpatient status. ? DS: Summary Hospital Course Hospital Course: Patient is been dealing with jaw pain lately. found him to have altered mental status, increasing weakness. Had near syncopal episode at home. Presentation to the emergency room patient has significant tachycardia, thrombocytopenia, hyperglycemia with the altered mental status with increasing weakness. No focal neurological deficits. He does have a history of stroke with resultant right-sided weakness, CT scanning of head with CTA and consultation with telestroke not feel this was a new stroke event. Today the patient is back to his baseline although he he has not ambulated yet. thinks his mentation is back to his baseline. Still having significant jaw pain so obtain CT scan of the jaw, if no abscess found and patient can ambulate back at his baseline, he can be discharged to home in improving condition. Medications see list. Follow-up with PCP within the next week. Status at Discharge Overall status at discharge: patient is back to baseline Time Spent with Patient Time attestation: Total time spent providing and/or coordinating discharge services: Time spent: greater than 30 minutes Exam Constitutional Vital Signs, click to edit/add: Last Vital Signs Temp 98.5 F 02/23/24 07:43 Pulse 92 H 02/23/24 08:00 Resp 18 02/23/24 07:43 BP 121/81 02/23/24 07:43 Pulse Ox 94 L 02/23/24 07:43 O2 Del Method Room Air 02/23/24 07:43 Documenting provider has reviewed patient's vital signs: yes Common normals: no apparent distress Respiratory Common normals: normal respiratory effort, no retractions and no use of accessory muscles Cardio Common normals: regular rate, regular rhythm and no murmurs GI Common normals: Normal to inspection, nondistended, normoactive bowel sounds present, soft to palpation and non-tender (Improved from admission) Neuro Common normals: does not move all extremities (Some movement of right lower extremity, no movement of right upper extremit) DS: Data Data Completed and Pending Labs on day of discharge: Labs from last 24 hours 02/23/24 02/23/24 02/22/24 07:49 05:22 19:31 WBC 5.3 RBC 3.78 L Hgb 11.7 L Hct 33.5 L MCV 88.6 MCH 31.0 MCHC 34.9 RDW 13.1 Plt Count 118 L MPV 9.1 L Neut % (Auto) 69.7 Lymph % (Auto) 15.0 L [place] % (Auto) 12.4 H Eos % (Auto) 1.7 Baso % (Auto) 0.4 Neut # (Auto) 3.7 Lymph # (Auto) 0.8 L [place] # (Auto) 0.7 Eos # (Auto) 0.1 Baso # (Auto) 0.0 Abs Immat Gran (auto) 0.04 H Seg Neuts % (Manual) Lymphocytes % (Manual) Monocytes % (Manual) Eosinophils % (Manual) Basophils % (Manual) Imm/Tot Granulo (auto) 0.8 H Neutrophils # (Manual) Lymphocytes # (Manual) Monocytes # (Manual) Eosinophils # (Manual) Basophils # (Manual) PT INR Sodium 138 Potassium 4.1 Chloride 102 Carbon Dioxide 26.8 Anion Gap 13.3 BUN 13.0 Creatinine 0.96 Est GFR ( Amer) >60 Est GFR (Non-Af Amer) >60 BUN/Creatinine Ratio 13.5 Glucose 145 H Lactate Calcium 8.5 Magnesium 1.8 Total Bilirubin 1.1 H AST 20 ALT 22 Alkaline Phosphatase 111 Ammonia Troponin I High Sens Total Protein 5.9 L Albumin 2.8 L Globulin 3.1 Albumin/Globulin Ratio 0.9 Amylase Lipase Urine Color Urine Clarity Urine pH Ur Specific [place] Urine Protein Urine Glucose (UA) Urine Ketones Urine Occult Blood Urine Nitrite Urine Bilirubin Urine Urobilinogen Ur Leukocyte Esterase Urine Opiates Screen Ur Buprenorphine Scrn Ur Oxycodone Screen Urine Methadone Screen Ur Barbiturates Screen U Tricyclic Antidepress Ur Phencyclidine Scrn Ur Amphetamines Screen U Methamphetamines Scrn U Benzodiazepines Scrn Urine Cocaine Screen U Cannabinoids Screen SARS-CoV-2 Ag (CV2AG) POC Glucose 189 H 159 H 02/22/24 02/22/24 02/22/24 18:45 17:53 17:40 WBC RBC Hgb Hct MCV MCH MCHC RDW Plt Count MPV Neut % (Auto) Lymph % (Auto) [place] % (Auto) Eos % (Auto) Baso % (Auto) Neut # (Auto) Lymph # (Auto) [place] # (Auto) Eos # (Auto) Baso # (Auto) Abs Immat Gran (auto) Seg Neuts % (Manual) Lymphocytes % (Manual) Monocytes % (Manual) Eosinophils % (Manual) Basophils % (Manual) Imm/Tot Granulo (auto) Neutrophils # (Manual) Lymphocytes # (Manual) Monocytes # (Manual) Eosinophils # (Manual) Basophils # (Manual) PT INR Sodium Potassium Chloride Carbon Dioxide Anion Gap BUN Creatinine Est GFR ( Amer) Est GFR (Non-Af Amer) BUN/Creatinine Ratio Glucose Lactate 2.0 Calcium Magnesium Total Bilirubin AST ALT Alkaline Phosphatase Ammonia 31 Troponin I High Sens Total Protein Albumin Globulin Albumin/Globulin Ratio Amylase Lipase Urine Color Urine Clarity Urine pH Ur Specific [place] Urine Protein Urine Glucose (UA) Urine Ketones Urine Occult Blood Urine Nitrite Urine Bilirubin Urine Urobilinogen Ur Leukocyte Esterase Urine Opiates Screen Negative Ur Buprenorphine Scrn Negative Ur Oxycodone Screen Negative Urine Methadone Screen Negative Ur Barbiturates Screen Negative U Tricyclic Antidepress Negative Ur Phencyclidine Scrn Negative Ur Amphetamines Screen Negative U Methamphetamines Scrn Negative U Benzodiazepines Scrn Negative Urine Cocaine Screen Negative U Cannabinoids Screen Negative SARS-CoV-2 Ag (CV2AG) POC Glucose 162 H 02/22/24 02/22/24 02/22/24 15:19 14:50 13:31 WBC RBC Hgb Hct MCV MCH MCHC RDW Plt Count MPV Neut % (Auto) Lymph % (Auto) [place] % (Auto) Eos % (Auto) Baso % (Auto) Neut # (Auto) Lymph # (Auto) [place] # (Auto) Eos # (Auto) Baso # (Auto) Abs Immat Gran (auto) Seg Neuts % (Manual) Lymphocytes % (Manual) Monocytes % (Manual) Eosinophils % (Manual) Basophils % (Manual) Imm/Tot Granulo (auto) Neutrophils # (Manual) Lymphocytes # (Manual) Monocytes # (Manual) Eosinophils # (Manual) Basophils # (Manual) PT INR Sodium Potassium Chloride Carbon Dioxide Anion Gap BUN Creatinine Est GFR ( Amer) Est GFR (Non-Af Amer) BUN/Creatinine Ratio Glucose Lactate 3.3 H* Calcium Magnesium Total Bilirubin AST ALT Alkaline Phosphatase Ammonia Troponin I High Sens 8.4 Total Protein Albumin Globulin Albumin/Globulin Ratio Amylase 38 Lipase 19.0 Urine Color Yellow Urine Clarity Clear Urine pH 6.0 Ur Specific [place] 1.015 Urine Protein Trace Urine Glucose (UA) 100 A Urine Ketones Negative Urine Occult Blood Negative Urine Nitrite Negative Urine Bilirubin Negative Urine Urobilinogen 0.2 Ur Leukocyte Esterase Negative Urine Opiates Screen Ur Buprenorphine Scrn Ur Oxycodone Screen Urine Methadone Screen Ur Barbiturates Screen U Tricyclic Antidepress Ur Phencyclidine Scrn Ur Amphetamines Screen U Methamphetamines Scrn U Benzodiazepines Scrn Urine Cocaine Screen U Cannabinoids Screen SARS-CoV-2 Ag (CV2AG) POC Glucose 02/22/24 02/22/24 02/22/24 13:26 12:00 11:57 WBC 6.8 RBC 4.48 L Hgb 13.9 L Hct 39.8 L MCV 88.8 MCH 31.0 MCHC 34.9 RDW 12.7 Plt Count 145 L MPV 9.1 L Neut % (Auto) Lymph % (Auto) [place] % (Auto) Eos % (Auto) Baso % (Auto) Neut # (Auto) Lymph # (Auto) [place] # (Auto) Eos # (Auto) Baso # (Auto) Abs Immat Gran (auto) Seg Neuts % (Manual) 88.0 H Lymphocytes % (Manual) 12.0 L Monocytes % (Manual) 0.0 L Eosinophils % (Manual) 0.0 L Basophils % (Manual) 0.0 L Imm/Tot Granulo (auto) Neutrophils # (Manual) 5.98 Lymphocytes # (Manual) 0.81 L Monocytes # (Manual) 0.00 L Eosinophils # (Manual) 0.00 Basophils # (Manual) 0.00 PT 11.3 INR 1.07 Sodium 136 Potassium 3.9 Chloride 99 Carbon Dioxide 27.4 Anion Gap 13.5 BUN 10.0 Creatinine 1.05 Est GFR ( Amer) >60 Est GFR (Non-Af Amer) >60 BUN/Creatinine Ratio 9.5 Glucose 203 H Lactate 2.1 H Calcium 9.3 Magnesium 1.3 L Total Bilirubin 1.6 H AST 17 ALT 23 Alkaline Phosphatase 143 H Ammonia Troponin I High Sens 6.8 Total Protein 7.2 Albumin 3.5 Globulin 3.7 Albumin/Globulin Ratio 0.9 Amylase Lipase Urine Color Urine Clarity Urine pH Ur Specific [place] Urine Protein Urine Glucose (UA) Urine Ketones Urine Occult Blood Urine Nitrite Urine Bilirubin Urine Urobilinogen Ur Leukocyte Esterase Urine Opiates Screen Ur Buprenorphine Scrn Ur Oxycodone Screen Urine Methadone Screen Ur Barbiturates Screen U Tricyclic Antidepress Ur Phencyclidine Scrn Ur Amphetamines Screen U Methamphetamines Scrn U Benzodiazepines Scrn Urine Cocaine Screen U Cannabinoids Screen SARS-CoV-2 Ag (CV2AG) Negative POC Glucose 201 H Discharge Plan Discharge Disposition: Home, Self-Care Discharge Medications: New magnesium oxide 400 mg (241.3 mg magnesium) Tablet 400 mg PO BID Qty: 60 11RF amoxicillin-pot clavulanate 875-125 mg tablet 1 tab PO Q12H Qty: 20 0RF Continued atorvastatin 40 mg tablet 40 mg PO DAILY baclofen 5 mg tablet 5 mg PO Q12H PRN (Reason: spasms) levetiracetam 500 mg tablet 500 mg PO Q12H metformin 500 mg tablet extended release 24 hr 500 mg PO DAILY mirtazapine 45 mg tablet 45 mg PO .QHS tamsulosin 0.4 mg capsule 0.4 mg PO DAILY aspirin 81 mg capsule 81 mg PO DAILY loratadine [Allerclear] 10 mg tablet 10 mg PO DAILY Print Language: Mongolian Forms: Portal Instructions
--- NOTE | 2024-02-23 10:00 | CT_ITS ---
The [address] [address] Patient Name: DAISY DEMARCO MRN: [id number] date: 1965 Sex: M Assigned Patient Location: MS Current Patient Location: [place] Accession/Order Number: [id number] Exam Date: 02/23/2024 09:58 Report Date: 02/23/2024 10:42 At the request of: MAGALIE FORBES Procedure: CT facial bones wo con EXAMINATION: CT facial bones wo con HISTORY: tooth abscess COMPARISON: No relevant comparison available. TECHNIQUE: Axial, Coronal, and Sagittal CT images created without IV contrast. Dose reduction techniques were achieved by using automated exposure control and/or adjustment of mA and/or kV according to patient size and/or use of iterative reconstruction technique. FINDINGS: FACIAL BONES: Majority of the teeth of the maxilla and mandible are missing. No appreciable cortical destruction or suspicious erosion. Open channel 2.5 mm in diameter through the bone of the maxilla between the anterior midline roof of oral cavity and right side of nasal passageway, which is filled with soft tissue and suspected represent an incidental developmental incisive canal. SINUSES: No visible mass, significant fluid or mucosal thickening. NASAL FOSSA: No mass, fracture, or significant septal deviation. SKULL BASE: No mass or bone destruction. ORBITS: No visible mass, hematoma, edema or fracture. OTHER: Chronic encephalomalacic changes within the visualized portion of left cerebellum MCA territory and evidence of prior craniotomy. CT/CT facial bones wo con IMPRESSION: 1. No appreciable abscess. 2. No acute or suspicious findings. Electronically authenticated by: SEEMA PHILLIPS Date: 02/23/2024 10:42
[2024-02-23] MEDS: KETOROLAC TROMETHAMINE 30 MG/ML VIAL IVP (10:19)
--- NOTE | 2024-02-23 10:20 | SWNOTE1 ---
SW met with pt and in room. Pt was sleeping, SW spoke to pt's . Pt's does most of the care at home for pt. She voiced they have there own way of communicating with each other. Pt did have a stroke 2 years ago. Pt's voiced she has good support for her and pt at home. She does not have any concerns about discharge. SW did let her know that PT recommended rehab. Pt's did let SW know they are going to outpt therapy. She would like to resume this at discharge. No other concerns at this time. SW to follow as needed.
[2024-02-23 11:31] LABS: Glucometer 196 mg/dL (74-106)
--- NOTE | 2024-02-24 14:38 | CM.DCFOLLOWU ---
Person spoke with:pt's How are you feeling? he is still not doing the greatest How is your pain? still having pain, PCP switched to liquid medication Did you understand your discharge instructions? yes Do you have any questions about your discharge instructions? no questions Were you given any prescriptions at discharge? yes Were you able to get your prescriptions filled? yes Do you understand how to take your medications as ordered? yes Do you have any questions about your follow up appointment and do you plan to keep your follow up appointment? no questions, has follow up scheduled and will be in close contact with PCP if he does not start to feel better Is there anything else that you would like to discuss? no Questions/Comments/Concerns/Other: Appreciated the amazing care patient received from ED to discharge.
== END 2024-02-23 13:42 | disposition home or self-care (01) ==
LOC: ER 15:56 → MS 02-23 06:59
PROVIDERS: Admitting Provider Family Medicine; Emergency Provider Emergency Medicine; Visit Provider Family Medicine
DX: R41.82 Altered mental status, unspecified (principal); M62.81 Muscle weakness (generalized); R68.84 Jaw pain; D50.9 Iron deficiency anemia, unspecified; D69.6 Thrombocytopenia, unspecified; E11.65 Type 2 diabetes mellitus with hyperglycemia; R79.89 Other specified abnormal findings of blood chemistry; E83.42 Hypomagnesemia; I25.10 Atherosclerotic heart disease of native coronary artery without angina pectoris; R10.812 Left upper quadrant abdominal tenderness; R10.811 Right upper quadrant abdominal tenderness; R00.0 Tachycardia, unspecified; R55 Syncope and collapse; I69.351 Hemiplegia and hemiparesis following cerebral infarction affecting right dominant side; Z79.84 Long term (current) use of oral hypoglycemic drugs; Z79.899 Other long term (current) drug therapy; Z20.822 Contact with and (suspected) exposure to COVID-19; Z87.891 Personal history of nicotine dependence; Z85.038 Personal history of other malignant neoplasm of large intestine
CPT/HCPCS: 36415; 70450; 70486; 70496; 70498; 71045; 74022; 80053; 80307; 81003; 82140; 82150; 82948; 83605; 83690; 83735; 84484; 85007; 85025; 85027; 85610; 87040; 87070; 87811; 93005; 94667; 94761; 96361; 96365; 96366; 96367; 96375; 96376; 97162; 97165; 99285; G0328; G0378; J0696; J1885; J3475; Q9967

== ENCOUNTER 2024-03-03 11:35 | Outpatient (OUT) | payer OTHER, SELFPAY ==
[2024-03-03 12:04] LABS: Basophils Absolute Auto 0.1 10^3/uL (0.0-0.1); Basophils Percent Auto 0.9 % (0.2-2.0); Eosinophils Absolute Auto 0.2 10^3/uL (0.0-0.7); Eosinophils Percent Auto 3.3 % (0.9-7.0); Immature Granulocytes Abs Auto 0.04 10^3/uL (0.00-0.03); Immature Granulocytes Pct Auto 0.6 % (0.0-0.5); Lymphocytes Absolute Auto 1.8 10^3/uL (1.2-3.8); Lymphocytes Percent Auto 27.3 % (20.5-60.0); Mean Corpuscular HGB Conc 34.2 g/dL (29.9-35.2); Mean Corpuscular Hemoglobin 31.1 pg (25.9-34.0); Mean Corpuscular Volume 90.9 fL (80.0-94.0); Mean Platelet Volume 9.8 fL (9.5-13.5); Monocytes Absolute Auto 0.4 10^3/uL (0.3-0.8); Monocytes Percent Auto 5.2 % (1.7-12.0); Neutrophils Absolute Auto 4.2 10^3/uL (1.4-6.5); Neutrophils Percent Auto 62.7 % (43.0-75.0); Platelet Count 185 10^3/uL (150-450); Red Blood Count 4.18 10^6/uL (4.70-6.10); Red Cell Distribution Width 13.4 % (11.0-15.0); White Blood Count 6.7 10^3/uL (4.0-11.0)
[2024-03-03 12:26] LABS: Alanine Aminotransferase 25 U/L (16-63); Albumin Globulin Ratio 0.9; Albumin Level 3.5 g/dL (3.4-5.0); Alkaline Phosphatase 134 U/L (46-116); Aspartate Amino Transferase 24 U/L (15-37); BUN Creatinine Ratio 15.8; Calcium 9.2 mg/dL (8.5-10.1); Carbon Dioxide 30.2 mmol/L (21.0-32.0); Chloride 101 mmol/L (98-107); Estimated GFR (African America >60 (>=60); Estimated GFR (Non-African Ame >60 (>=60); Globulin 3.8 g/dL; Glucose 118 mg/dL (74-106); Magnesium 1.7 mg/dL (1.8-2.4); Potassium 4.2 mmol/L (3.5-5.1); Sodium 138 mmol/L (136-145); Total Protein 7.3 g/dL (6.4-8.2)
== END 2024-03-03 11:36 | disposition home or self-care (01) ==
LOC: LAB 11:35
PROVIDERS: Visit Provider Nurse Practitioner Family
DX: D64.9 Anemia, unspecified (principal); E83.42 Hypomagnesemia; D69.6 Thrombocytopenia, unspecified
CPT/HCPCS: 36415; 80053; 83735; 85025

== ENCOUNTER 2024-03-14 10:06 | Outpatient (OUT) | payer OTHER, SELFPAY ==
--- NOTE | 2024-03-14 | US_ITS ---
The [address] [address] Patient Name: DAISY DEMARCO MRN: [id number] date: 1965 Sex: M Assigned Patient Location: Current Patient Location: Accession/Order Number: [id number] Exam Date: 03/14/2024 10:40 Report Date: 03/15/2024 09:46 At the request of: BRITNEY GORDILLO Procedure: US soft tissue head and neck EXAMINATION: US soft tissue head and neck HISTORY: CERVICAL LYMPHADENOPATHY R59.0 COMPARISON: CTA neck 02/22/2024 FINDINGS: RIGHT: Several slightly prominent lymph nodes, largest is in level 2, 2.0 x 0.9 x 1.1 cm. All appear to maintain normal fatty hilum and cortex. LEFT: Several slightly prominent lymph nodes, largest is in level 2, 1.3 x 0.6 x 1.1 cm. All appear to maintain normal fatty hilum and cortex. US/US soft tissue head and neck IMPRESSION: 1. Mild lymphadenopathy; nonspecific and not overtly suspicious. Electronically authenticated by: SEEMA PHILLIPS Date: 03/15/2024 09:46
== END 2024-03-14 10:07 | disposition home or self-care (01) ==
LOC: US 10:07
PROVIDERS: Visit Provider Nurse Practitioner Family
DX: R59.0 Localized enlarged lymph nodes (principal)
CPT/HCPCS: 76536

== ENCOUNTER 2024-06-29 11:54 | Outpatient (OUT) | payer OTHER, SELFPAY ==
[2024-06-29 13:08] LABS: Magnesium 1.7 mg/dL (1.8-2.4); Potassium 3.8 mmol/L (3.5-5.1)
== END 2024-06-30 09:09 | disposition home or self-care (01) ==
PROVIDERS: PCP Nurse Practitioner Family; Visit Provider Nurse Practitioner Family
DX: E83.42 Hypomagnesemia (principal); E87.6 Hypokalemia
CPT/HCPCS: 36415; 83735; 84132

== ENCOUNTER 2025-03-20 10:41 | Emergency (ER) | payer MEDICARE, SELFPAY ==
--- OUTSIDE RECORDS SUMMARY | 2024-09-29 07:00 | XMS_ITS ---
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 Name Role Phone None, Unknown or Primary Care Provider Unavailab Maty Harris Unavailable [phone] REASON FOR VISIT Nail care Encounters Encounter Location Date Provider Diagnosis [facility] (PODIAT[facility]) [address] [place] [address] [place] [address] 09/29/2024 Maty Foy Plan Of Treatment No Information Progress Notes * Kelsy JOHNSONOB:1965 ([age] yo M)Acc No.[id number]:09/29/2024 UNLOCKED PROGRESS NOTE Follow Up Patient: Lee GARY Provider: Verna Foy PA-C :1965 A ge:59 Y S ex:Male Date:09/29/2024 Address:[address] [place] [address] [id number] Pcp:Unknown or None Subjective: * Chief Complaints: * 1 . Nail care. * Medical History: Objective: * Vitals: Assessment: Plan: * Treatment: * * Electronic signature of Lisette Foy PA-C on 03/20/2025 at 11:11 AM EDT Sign off status: Pending Visit Status: O FF CANC (OFFICE CANCEL) * Provider: Verna Foy PA-C Date: 0 09/29/2024 Generated for Printi ng/Faxing/eTransmitting on: 0 03/20/2025 11:11 AM EDT
[2025-03-20] VITALS (19 sets, daily range): BP systolic 132–135; BP diastolic 80–89; PULSE 79–96; TEMP 36.6; O2SAT 98–100; BMI 23.0
--- OUTSIDE RECORDS SUMMARY | 2025-03-20 05:36 | XMS_ITS | Continuity of Care Document ---
Author Organization [facility] Address [address] [place] [address] Phone Care Team Providers Care Ophthalmic Asst Name Role Phone Reza Carbone Unavailable Unavailab le Allergies, Adverse Reactions, Alerts Substance Reaction Status Criticality No Known Allergies Active No Inform ation Medications Medication Instructions Dosage Effective Dates (start - stop) Status Comments MIRTAZAPINE 45 MG TABLET TAKE 1 TABLET BY MOUTH EVERY DAY BEFORE BEDTIME - Active metformin ER 500 mg tablet,extended release 24 hr take 2 tablet by oral route every day with the evening meal 1000 MG - Active fluticasone propionate 50 mcg/actuation nasal spray,suspension spray 1 - 2 spray by intranasal route every day in each nostril as needed 50-100 MCG - Active atorvastatin 40 mg tablet take 1 tablet by oral route every day 40 MG - Active baclofen 5 mg tablet take 1 tablet by oral route twice daily as needed for spasms. - Active Keppra 500 mg tablet take 1 tablet by oral route 2 times every day 500 MG - Active tamsulosin 0.4 mg capsule take 1 capsule by oral route every day 1/2 hour following the same meal each day 0.4 MG - Active acetaminophen 500 mg/15 mL oral liquid take 15 milliliter by oral route every 8 hours as needed as needed 500 MG - Active Vazalore 81 mg capsule take 1 capsule by oral route every day 81 MG - Active Procedures Procedure Date OFFICE/OUTPATIENT VISIT, EST GLYCOSYLATED HEMOGLOBIN TEST GLYCOSYLATED HEMOGLOBIN TEST OFFICE/OUTPATIENT VISIT, EST Initial preventive exam HG A1C LEVEL < 7.0% DIAST BP < 80 MM HG SYST BP < 130 MM HG COLORECTAL CA SCREEN DOC REV OFFICE/OUTPATIENT VISIT, EST OFFICE/OUTPATIENT VISIT, EST OFFICE/OUTPATIENT VISIT, EST Panoramic Film Oral Hygiene Instruction Limited Oral Eval GLYCOSYLATED HEMOGLOBIN TEST OFFICE/OUTPATIENT VISIT, EST OFFICE/OUTPATIENT VISIT, EST OFFICE/OUTPATIENT VISIT, EST GLYCOSYLATED HEMOGLOBIN TEST OFFICE/OUTPATIENT VISIT, EST LDL-C <100 MG/DL DIAST BP < 80 MM HG SYST BP < 130 MM HG MED LIST DOCD IN [facility] RVW MEDS BY RX/DR IN [facility] Pt inelig neg scrn depres COLORECTAL CA SCREEN DOC REV OFFICE/OUTPATIENT VISIT, EST OFFICE/OUTPATIENT VISIT, EST OFFICE/OUTPATIENT VISIT, EST GLYCOSYLATED HEMOGLOBIN TEST Intraoral-periapical 1st Film Limited Oral Eval Oral Hygiene Instruction OFFICE/OUTPATIENT VISIT, EST OFFICE/OUTPATIENT VISIT, EST OFFICE/OUTPATIENT VISIT, EST GLYCOSYLATED HEMOGLOBIN TEST OFFICE/OUTPATIENT VISIT, EST OFFICE/OUTPATIENT VISIT, EST GLYCOSYLATED HEMOGLOBIN TEST GLYCOSYLATED HEMOGLOBIN TEST OFFICE/OUTPATIENT VISIT, EST GLYCOSYLATED HEMOGLOBIN TEST OFFICE/OUTPATIENT VISIT, EST Limited Oral Eval Extract; Erupted Th/exposted Rt 022 Intraoral-periapical 1st Film 2 [id number] Additional Jun Nutrit Couns For Control Of Screven Dis Jun Pfizer 3rd Dose COVID-19 Pfizer OFFICE/OUTPATIENT VISIT, EST OFFICE/OUTPATIENT VISIT, EST ROUTINE VENIPUNCTURE GLUCOSE BLOOD TEST OFFICE/OUTPATIENT VISIT, EST Pfizer COVID Vaccine Admin Dose 2 COVID-19 Pfizer OFFICE/OUTPATIENT VISIT, EST Pfizer COVID Vaccine Admin Dose 1 COVID-19 Pfizer Advance Directives Directive Yes / No Effective Date File Name No Information Encounters Encounter Description Practice Location Reason(s) For Visit Diagnoses Date Provider Providers Copied on Encounter [facility], [address] [place] [address], [id number] , tel:+ [phone] [employer] No Information 5 Luis Cobb. [address] [place] [address], [id number] , [place]. tel:[phone] [facility], [address] [place] [address], [id number] , [place] tel:+ [phone] [employer] No Information 5 Luis Cobb. [address] [place] [address], [id number] , [place]. tel:+ [phone] OFFICE/OUTPA TIENT VISIT, EST [facility], [address] [place] [address], [id number] , [place] tel:+ [phone] [facility] F/U HTN and A1C (chief complaint)d iabetes (chief complaint) Type 2 diabetes, HbA1c goal < 7%Body mass index [BMI] 23.0-23.9, adult 5 Luis Cobb. [address], [place], [id number] , [place]. tel:+ [phone] [facility], [address], [place], [id number] , [place] tel:+ [phone] [facility] No Information 5 Luis Cobb. [address], [place], [id number] , [place]. tel:+ [phone] OFFICE/OUTPA TIENT VISIT, EST [facility], [address] [place] [address], [id number] , [place] tel:+ [phone] [facility] F/U HTN and DM (chief complaint)d iabetes (chief complaint) Type 2 diabetes, HbA1c goal < 7%Primary hypertensionPressure injury of skin of right buttock, unspecified injury stageNeed for shingles vaccineBody mass index [BMI] 24.0-24.9, adult Sep- 5 Luis Cobb. [address] [place], [place], [id number] , [place]. tel: [phone] [facility], [address] [place] [address], [id number] , [place] tel:+ [phone] [facility] Medicare preventive (chief complaint) Encounter for Medicare annual wellness examBody mass index [BMI] 24.0-24.9, adult 5 Viday Duffy. [address], [place], [id number] , [place]. tel:+ [phone] [facility], [address] [place] [address], [id number] , [place] tel:+ [phone] [facility] No Information 5 Luis Cobb. [address], [place], [id number] , [place]. tel:+ [phone] [facility], [address] [place] [address], [id number] , [place] tel:+ [phone] [employer] No Information 4 Luis Cobb. [address] [place] [address], [id number] , [place]. tel: [phone] OFFICE/OUTPA TIENT VISIT, [facility], [address] [place] [address], [id number] , [place] tel: [phone] [facility] F/U ER (chief complaint)d iabetes (chief complaint)h yperlipidem ia (chief complaint) HypomagnesemiaHypoka lemiaScreening for HIV (human immunodeficiency virus)Need for hepatitis C screening testType 2 diabetes, HbA1c goal < 7%Subungual hematoma of toe of right foot, initial encounterNeed for shingles vaccineVaccine counselingBlephariti s of right upper eyelid, unspecified type 4 Luis Cobb. [address] [place] [address], [id number] , [place]. tel: [phone] OFFICE/OUTPA TIENT VISIT, [facility], [address] [place] [address], [id number] , [place] tel: [phone] [facility] Follow up (chief complaint) Cervical lymphadenopathyHypom agnesemiaMild anemiaThrombocytopen ia 4 Luis Cobb. [address] [place] [address], [id number] , [place]. tel: [phone] OFFICE/OUTPA TIENT VISIT, [facility], [address] [place] [address], [id number] , [place] tel:+ [phone] [facility] Hospital Follow-up (chief complaint) HypomagnesemiaMild anemiaThrombocytopen iaDentalgia 4 Luis Cobb. [address] [place] [address], [id number] , [place]. tel: [phone] [facility], [address] [place] [address], [id number] , [place] tel:+ [phone] Dental Clinic er (chief complaint) Encounter for screening for dental disorders 4 Gerri [place] Ari. [address] [place], [place], [id number] , [place]. tel: [phone] OFFICE/OUTPA TIENT VISIT, [facility], [address] [place] [address], [id number] , [place] tel: [phone] [facility] 3 month follow up (chief complaint)d iabetes (chief complaint) Body mass index [BMI] 24.0-24.9, adultType 2 diabetes mellitus with hyperglycemiaHemiple lianne affecting right dominant side, unspecified etiology, unspecified hemiplegia typeRight foot dropImpaired mobility and ADLs 4 Luis Cobb. [address] [place] [address], [id number] , [place]. tel: [phone] [facility], [address] [place] [address], [id number] , [place] tel: [phone] [facility] Type 2 diabetes, HbA1c goal < 7%Diabetic eye exam 4 Luis Cobb. [address] [place] [address], [id number] , [place]. tel: [phone] OFFICE/OUTPA TIENT VISIT, [facility], [address] [place] [address], [id number] , [place] tel: [phone] [facility] diabetes (chief complaint)h yperlipidem ia (chief complaint) Type 2 diabetes, HbA1c goal < 7%Hemiplegia affecting right dominant side, unspecified etiology, unspecified hemiplegia typeLow hematocritMixed hyperlipidemia 4 Luis Cobb. [address] [place] [address], [id number] , [place]. tel: [phone] OFFICE/OUTPA TIENT VISIT, [facility], [address] [place] [address], [id number] , [place] tel: [phone] [facility] FU HTN and DM (chief complaint)d iabetes (chief complaint) Prostate cancer screeningBody mass index [BMI] 21.0-21.9, adultHemiplegia affecting right dominant side, unspecified etiology, unspecified hemiplegia typeType 2 diabetes, HbA1c goal < 7%Acquired aphasiaCerebral infarction, unspecified 4 Luis Cobb. [address] [place] [address], [id number] , [place]. tel: [phone] OFFICE/OUTPA TIENT VISIT, [facility], [address] [place] [address], [id number] , [place] tel: [phone] [facility] Follow Up (chief complaint)H emoglobin A1C (chief complaint)d iabetes (chief complaint)h ypertension (chief complaint) Body mass index [BMI] 22.0-22.9, adultType 2 diabetes mellitus with hyperglycemiaPrimary hypertensionDepressi on with anxietyNo vaccination-pt refuse 3 Luis Cobb. [address] [place] [address], [id number] , [place]. tel: [phone] [facility], [address] [place] [address], [id number] , [place] tel: [phone] [facility] Hemiplegia affecting right dominant side, unspecified etiology, unspecified hemiplegia type Feb- 3 Luis Cobb. [address] [place] [address], [id number] , [place]. tel: [phone] OFFICE/OUTPA TIENT VISIT, [facility], [address] [place] [address], [id number] , [place] tel: [phone] [facility] F/U (chief complaint) Primary hypertensionBody mass index [BMI] 23.0-23.9, adult Sep- 3 Luis Cobb. [address] [place] [address], [id number] , [place]. tel: [phone] OFFICE/OUTPA TIENT VISIT, [facility], [address] [place] [address], [id number] , [place] tel: [phone] [facility] er f/u (chief complaint) Body mass index [BMI] 23.0-23.9, adultHemiplegia affecting right dominant side, unspecified etiology, unspecified hemiplegia typeWitnessed seizure-like activityLow blood pressure reading 3 Luis Cobb. [address] [place] [address], [id number] , [place]. tel: [phone] OFFICE/OUTPA TIENT VISIT, [facility], [address] [place] [address], [id number] , [place] tel: [phone] [facility] F/U TDM, HTN (chief complaint)h ypertension (chief complaint)d iabetes (chief complaint)h yperlipidem ia (chief complaint) Type 2 diabetes, HbA1c goal < 7%Primary hypertensionMixed hyperlipidemiaDepres chanda with anxietyHemiplegia affecting right dominant side, unspecified etiology, unspecified hemiplegia typeBody mass index [BMI] 23.0-23.9, adult Dec- 3 Luis Cobb. [address] [place] [address], [id number] , [place]. tel: [phone] [facility], [address] [place] [address], [id number] , [place] tel: [phone] Dental Clinic ER (chief complaint) Encounter for screening for dental disorders 3 Gerri Chapman. [address] [place] [address], [id number] , [place]. tel: [phone] OFFICE/OUTPA TIENT VISIT, [facility], [address] [place] [address], [id number] , [place] tel: [phone] [facility] F/U (chief complaint)d iabetes (chief complaint) Body mass index [BMI] 23.0-23.9, adultType 2 diabetes, HbA1c goal < 7%NocturiaHemiplegia affecting right dominant side, unspecified etiology, unspecified hemiplegia typeDepression with anxiety 3 Luis Cobb. [address] [place] [address], [id number] , [place]. tel:+ [phone] [facility], [address] [place] [address], [id number] , tel:+ [phone] [facility] Cerebral infarction, unspecifiedHemiplegi a affecting right dominant side, unspecified etiology, unspecified hemiplegia type 3 Luis Cobb. [address] [place] [address], [id number] , [place]. tel:+ [phone] OFFICE/OUTPA TIENT VISIT, [facility], [address] [place] [address], [id number] , [place] tel: [phone] [facility] F/U Medication (chief complaint)d iabetes (chief complaint)U rinary frequency (chief complaint) Localized cancer of colonNocturiaMixed hyperlipidemiaHemipl egia affecting right dominant side, unspecified etiology, unspecified hemiplegia typeType 2 diabetes, HbA1c goal < 7%Body mass index [BMI] 24.0-24.9, adultRight foot dropCerebral infarction, unspecified Aug- 3 Luis Cobb. [address] [place] [address], [id number] , [place]. tel: [phone] [facility], [address] [place] [address], [id number] , [place] tel: [phone] [facility] Colon cancer screening 3 Luis Cobb. [address] [place] [address], [id number] , [place]. tel:+ [phone] OFFICE/OUTPA TIENT VISIT, [facility], [address] [place] [address], [id number] , [place] tel:+ [phone] [facility] with (chief complaint) Body mass index [BMI] 23.0-23.9, adultPseudobulbar affectCerebral infarction, unspecifiedType 2 diabetes mellitus with hyperglycemia 3 Vidya Duffy. [address] [place] [address], [id number] , [place]. tel: [phone] OFFICE/OUTPA TIENT VISIT, [facility], [address] [place] [address], [id number] , [place] tel:+ [phone] [facility] follow up stroke (chief complaint) Cerebrovascular accident (CVA), unspecified mechanismHemiplegia affecting right dominant side, unspecified etiology, unspecified hemiplegia typeOther constipationType 2 diabetes, HbA1c goal < 7%Primary hypertensionBody mass index [BMI] 23.0-23.9, adultLocalized cancer of colonNo vaccination-pt refuse 3 Luis Cobb. [address] [place] [address], [id number] , [place]. tel: [phone] OFFICE/OUTPA TIENT VISIT, [facility], [address] [place] [address], [id number] , [place] tel: [phone] [facility] A1C (chief complaint)h ypertension (chief complaint)d iabetes (chief complaint) Primary hypertensionControll ed type 2 diabetes mellitus without complication, without long-term current use of insulinBody mass index [BMI] 25.0-25.9, adult 2 Luis Cobb. [address] [place] [address], [id number] , [place]. tel: [phone] OFFICE/OUTPA TIENT VISIT, [facility], [address] [place] [address], [id number] , [place] tel:+ [phone] [facility] A1C (chief complaint)h ypertension (chief complaint)d iabetes (chief complaint) Body mass index [BMI] 26.0-26.9, adultType 2 diabetes mellitus with hyperglycemiaPrimary hypertension 2 Luis Cobb. [address] [place] [address], [id number] , [place]. tel:+ [phone] OFFICE/OUTPA TIENT VISIT, [facility], [address] [place] [address], [id number] , [place] tel:+ [phone] [facility] Med Refills (chief complaint)d iabetes (chief complaint) Body mass index [BMI] 27.0-27.9, adultType 2 diabetes mellitus with hyperglycemia, without long-term current use of insulinColon cancer screening 2 Luis Cobb. [address] [place], [place], [id number] , [place]. tel:[phone] [facility], [address] [place] [address], [id number] , [place] tel: [phone] Dental Clinic er (chief complaint) Encounter for screening for dental disorders 2 Bobby Schultz. [address] [place] [address], [id number], [place]. tel: [phone] [facility], [address] [place] [address], [id number] , [place] tel: [phone] [facility] No Information 1 Luis Cobb. [address] [place] [address], [id number] , [place]. tel: [phone] OFFICE/OUTPA TIENT VISIT, [facility], [address] [place] [address], [id number] , [place] tel: [phone] [facility] F/U DM Meds & HTN (chief complaint)h ypertension (chief complaint)d iabetes (chief complaint) Body mass index [BMI] 26.0-26.9, adultPrimary hypertensionType 2 diabetes mellitus with hyperglycemia, without long-term current use of insulin 1 Luis Cobb. [address] [place] [address], [id number] , [place]. tel:+ [phone] OFFICE/OUTPA TIENT VISIT, [facility], [address] [place] [address], [id number] , [place] tel: [phone] [facility] Check up (chief complaint)h ypertension (chief complaint)d iabetes (chief complaint) Body mass index [BMI] 27.0-27.9, adultType 2 diabetes mellitus with hyperglycemia, without long-term current use of insulinPrimary hypertensionHearing loss of left ear, unspecified hearing loss type Oct-0 1 Luis Cobb. [address], [place], [id number] , [place]. tel: [phone] OFFICE/OUTPA TIENT VISIT, [facility], [address] [place] [address], [id number] , [place] tel: [phone] [facility] back pain follow up (chief complaint) Type 2 diabetes mellitus with hyperglycemia, without long-term current use of insulinBody mass index [BMI] 27.0-27.9, adultAcute right-sided thoracic back painHearing loss of left ear, unspecified hearing loss typeOropharyngeal dysphagia Mar-3 1 Luis Cobb. [address] [place] [address], [id number] , [place]. tel: [phone] [facility], [address] [place] [address], [id number] , [place] tel: [phone] [facility] No Information Aug-2 1 Vanda Finney. [address] [place] [address], [id number] , [place]. tel: [phone] OFFICE/OUTPA TIENT VISIT, [facility], [address] [place] [address], [id number] , [place] tel: [phone] [facility] est care (chief complaint)d iabetes (chief complaint) Type 2 diabetes mellitus with hyperglycemia, without long-term current use of insulinAcute right-sided thoracic back pain Aug- 1 Luis Cobb. [address] [place] [address], [id number] , [place]. tel: [phone] [facility], [address] [place] [address], [id number] , [place] tel: [phone] [facility] No Information 0 1 Vanda Finney. [address] [place] [address], [id number] , [place]. tel:[phone] Family History Family Member Type Diagnosis Age At Onset Father Problem Alive and well Mother Problem Alive and well Immunizations Vaccine Date Status Comments Flulaval/ Fluarix refused Source: Ne w Immunization Record Flulaval/ Fluarix refused Source: Ne w Immunization Record Pfizer COVID administered Source: New Imm unization Record Flulaval/ Fluarix refused Source: Ne w Immunization Record Pfizer COVID administered Source: New Imm unization Record Pfizer COVID administered Source: New Imm unization Record Payers Payer name Insurance type Covered republican ID Authorhermesa humairayosi(s) Medicare PPS MB [id number] [employer] [place] CI [id number] [employer] CI [id number] [employer] CI [id number] [employer] CI [id number] [employer] CI [id number] [employer] CI [id number] [employer] CI [id number] Social History Type Description Quantity Date Captured Comments Alcohol Use Details Unknown Caffeine Use Details Unknown Tobacco Use Status Smoking Status No Information Sex Male Sexual Orientation Straight or heterosexual Gender Identity Male Chief Complaint And Reason For Visit No Information Reason For Referral Reason For Referral No Information Plan Of Treatment Date Type Action Status Goal Urine microalbumin. Due on due Goal Urinalysis. Due on 25 due Goal Lipid panel. Due on 026 due Goal Pneumococcal vac cine. Due on due Goal Zoster vaccine ( 1st). Due on due Goal Diabetes screening. Due on due Goal Colonoscopy. Due on 032 due Goal Dilated eye exam. Due on Feb due Goal Tdap. Due on due Goal Hep A. Due on du e Goal Hepatitis C scre ening. Due on due Goal Unhealthy drug u se screening. Due on due Goal Hemoglobin A1C. Due on due Goal Tdap Vaccine. Due on 2024 due Goal Dental exam. Due on due Goal Depression scree mando. Due on due Goal Foot exam. Due on due Goal ASCVD 10 year risk. Due on due Goal Influenza vaccine. Due on due Goal ECG. Due on due Goal Hep B (). Due on due Goal PRAPARE ASSESSMENT. Due on due Goal Dilated eye exam. Due on Dec due Goal Unhealthy drug u se screening. Due on due Goal Lipid panel. Due on due Goal Tdap. Due on due Goal Hep A. Due on du e Goal Zoster vaccine ( ). Due on due Goal Hepatitis C scre ening. Due on due Goal PRAPARE ASSESSMENT. Due on due Goal Depression scree mando. Due on due Goal Hemoglobin A1C. Due on due Goal Hep B (). Due on due Goal Colonoscopy. Due on 032 due Goal ASCVD 10 year risk. Due on due Goal Dental exam. Due on 025 due Goal Foot exam. Due on due Goal Urinalysis. Due on 25 due Goal Tdap Vaccine. Due on 2024 due Goal Pneumococcal vac cine. Due on due Goal Influenza vaccine. Due on due Goal Urine microalbumin. Due on due Goal ECG. Due on due Goal Diabetes screening. Due on due Goal Lifestyle education regardin g diet completed Goal Hep A. Due on du e Goal Dental exam. Due on due Goal Hemoglobin A1C. Due on due Goal Unhealthy drug u se screening. Due on due Goal Pneumococcal vac cine. Due on due Goal Zoster vaccine ( ). Due on due Goal Influenza vaccine. Due on due Goal ECG. Due on due Goal Dilated eye exam. Due on October due Goal Hep B (). Due on due Goal Urine microalbumin. Due on due Goal Foot exam. Due on due Goal ASCVD 10 year risk. Due on due Goal Lipid panel. Due on due Goal Tdap. Due on due Goal Colonoscopy. Due on due Goal PRAPARE ASSESSMENT. Due on due Goal Depression scree mando. Due on due Goal Diabetes screening. Due on due Goal Tdap Vaccine. Due on 2024 due Goal Urinalysis. Due on due Goal Hepatitis C scre ening. Due on due Goal Hep A. Due on du e Goal Urinalysis. Due on due Goal Hep B (). Due on due Goal Lipid panel. Due on due Goal Unhealthy drug u se screening. Due on due Goal ECG. Due on due Goal Hepatitis C scre ening. Due on due Goal Tdap Vaccine. Due on 2024 due Goal Colonoscopy. Due on due Goal Tdap. Due on due Goal Influenza vaccine. Due on due Goal Zoster vaccine ( ). Due on due Goal Urine microalbumin. Due on A due Goal Depression scree mando. Due on due Goal Diabetes screening. Due on A due Goal Foot exam. Due on due Goal PRAPARE ASSESSMENT. Due on A due Goal Dental exam. Due on due Goal Dilated eye exam. Due on Sep due Goal ASCVD 10 year risk. Due on A due Goal Hemoglobin A1C. Due on due Goal Pneumococcal vac cine. Due on due Goal Lifestyle education regardin g diet completed Goal Hemoglobin A1C. Due on due Goal Influenza vaccine. Due on due Goal Depression scree mando. Due on due Goal Dilated eye exam. Due on Sep due Goal Tdap. Due on due Goal Urine microalbumin. Due on A due Goal Tdap Vaccine. Due on 2024 due Goal Diabetes screening. Due on A due Goal Foot exam. Due on due Goal Pneumococcal vac cine. Due on due Goal ASCVD 10 year risk. Due on A due Goal Hep B (). Due on due Goal Zoster vaccine ( ). Due on due Goal PRAPARE ASSESSMENT. Due on A due Goal Urinalysis. Due on 25 due Goal Colonoscopy. Due on 032 due Goal Hepatitis C scre ening. Due on due Goal ECG. Due on due Goal Lipid panel. Due on due Goal Unhealthy drug u se screening. Due on due Goal Dental exam. Due on due Goal Lifestyle education regardin g diet completed Goal PRAPARE ASSESSMENT. Due on due Goal Hemoglobin A1C. Due on due Goal ECG. Due on due Goal Pneumococcal vac cine. Due on due Goal Diabetes screening. Due on due Goal Influenza vaccine. Due on Co due Goal Hep B (). Due on due Goal Tdap Vaccine. Due on 2024 due Goal Tdap. Due on due Goal Urinalysis. Due on due Goal Unhealthy drug u se screening. Due on due Goal Urine microalbumin. Due on due Goal Depression scree mando. Due on due Goal Foot exam. Due on due Goal Zoster vaccine ( ). Due on due Goal ASCVD 10 year risk. Due on due Goal Hepatitis C scre ening. Due on due Goal Dilated eye exam. Due on Aug due Goal Lipid panel. Due on due Goal Dental exam. Due on due Goal Colonoscopy. Due on due Goal Zoster vaccine ( 1st). Due on due Goal Tdap Vaccine. Due on 2023 due Goal Hepatitis C scre ening. Due on due Goal Pneumococcal vac cine. Due on due Goal Depression scree mando. Due on due Goal Foot exam. Due on due Goal Influenza vaccine. Due on due Goal Dental exam. Due on due Goal Tdap. Due on due Goal Hemoglobin A1C. Due on due Goal Unhealthy drug u se screening. Due on due Goal Dilated eye exam. Due on May due Goal Hep B (). Due on due Goal Urine microalbumin. Due on due Goal ASCVD 10 year risk. Due on due Goal Urinalysis. Due on due Goal ECG. Due on due Goal Lipid panel. Due on due Goal Diabetes screening. Due on due Goal Colonoscopy. Due on due Goal PRAPARE ASSESSMENT. Due on due Goal Hep A. Due on du e Goal Tdap. Due on due Goal Unhealthy drug u se screening. Due on due Goal Influenza vaccine. Due on due Goal ASCVD 10 year risk. Due on due Goal Hep B (). Due on due Goal ECG. Due on due Goal Colonoscopy. Due on due Goal Urine microalbumin. Due on due Goal Foot exam. Due on due Goal Zoster vaccine ( ). Due on due Goal Hepatitis C scre ening. Due on due Goal Diabetes screening. Due on due Goal Dental exam. Due on due Goal Urinalysis. Due on due Goal Depression scree mando. Due on due Goal Tdap Vaccine. Due on 2023 due Goal PRAPARE ASSESSMENT. Due on due Goal Pneumococcal vac cine. Due on due Goal Lipid panel. Due on due Goal Dilated eye exam. Due on May due Goal Pneumococcal vac cine. Due on due Goal Hep B (1st). Due on due Goal Hemoglobin A1C. Due on due Goal ASCVD 10 year risk. Due on due Goal Urine microalbumin. Due on due Goal ECG. Due on due Goal Influenza vaccine. Due on due Goal Unhealthy drug u se screening. Due on due Goal Lipid panel. Due on due Goal PRAPARE ASSESSMENT. Due on due Goal Depression scree mando. Due on due Goal Urinalysis. Due on due Goal Dilated eye exam. Due on Feb due Goal Colonoscopy. Due on due Goal Hepatitis C scre ening. Due on due Goal Tdap Vaccine. Due on 2023 due Goal Diabetes screening. Due on due Goal Zoster vaccine ( ). Due on due Goal Foot exam. Due on due Goal Tdap. Due on due Goal Dental exam. Due on due Goal Dilated eye exam. Due on Feb due Goal Dental exam. Due on due Goal Influenza vaccine. Due on due Goal Tdap Vaccine. Due on 2023 due Goal Urine microalbumin. Due on due Goal Hep B (). Due on due Goal Unhealthy drug u se screening. Due on due Goal Colonoscopy. Due on due Goal ASCVD 10 year risk. Due on due Goal Foot exam. Due on due Goal Pneumococcal vac cine. Due on due Goal PRAPARE ASSESSMENT. Due on due Goal Depression scree mando. Due on due Goal Hemoglobin A1C. Due on due Goal Diabetes screening. Due on due Goal Zoster vaccine ( ). Due on due Goal Hepatitis C scre ening. Due on due Goal Lipid panel. Due on due Goal ECG. Due on due Goal Urinalysis. Due on due Goal Tdap. Due on due Goal Hep A. Due on du e Goal Hep B (). Due on due Goal PRAPARE ASSESSMENT. Due on due Goal ASCVD 10 year risk. Due on due Goal Dental exam. Due on due Goal Colonoscopy. Due on due Goal Pneumococcal vac cine. Due on due Goal Dilated eye exam. Due on Feb due Goal Foot exam. Due on due Goal Hemoglobin A1C. Due on due Goal Urinalysis. Due on due Goal Lipid panel. Due on due Goal ECG. Due on due Goal Diabetes screening. Due on due Goal Unhealthy drug u se screening. Due on due Goal Zoster vaccine ( 1st). Due on due Goal Influenza vaccine. Due on due Goal Tdap Vaccine. Due on 2023 due Goal Hep A. Due on du e Goal Hepatitis C scre ening. Due on due Goal Depression scree mando. Due on due Goal Tdap. Due on due Goal Urine microalbumin. Due on S due Goal PRAPARE ASSESSMENT. Due on A due Goal Hep A. Due on du e Goal Unhealthy drug u se screening. Due on due Goal ECG. Due on due Goal Dilated eye exam. Due on Jan due Goal Depression scree mando. Due on due Goal Tdap. Due on due Goal Dental exam. Due on due Goal Hepatitis C scre ening. Due on due Goal Urine microalbumin. Due on A due Goal Hep B (). Due on due Goal Tdap Vaccine. Due on 2023 due Goal Colonoscopy. Due on due Goal Lipid panel. Due on due Goal ASCVD 10 year risk. Due on A due Goal Pneumococcal vac cine. Due on due Goal Diabetes screening. Due on A due Goal Zoster vaccine ( ). Due on due Goal Influenza vaccine. Due on Au due Goal Foot exam. Due on due Goal Urinalysis. Due on due Goal Hemoglobin A1C. Due on due Goal Dietary manageme nt education, guidance, and counseling completed Goal Hemoglobin A1C. Due on due Goal Depression scree mando. Due on due Goal Dilated eye exam. Due on October due Goal Foot exam. Due on due Goal Diabetes screening. Due on due Goal Lipid panel. Due on due Goal ECG. Due on due Goal Urinalysis. Due on due Goal ASCVD 10 year risk. Due on due Goal PRAPARE ASSESSMENT. Due on due Goal Influenza vaccine. Due on due Goal Tdap Vaccine. Due on 2023 due Goal Hep B (). Due on due Goal Tdap. Due on due Goal Pneumococcal vac cine. Due on due Goal Colonoscopy. Due on due Goal Hep A. Due on du e Goal Zoster vaccine ( ). Due on due Goal Urine microalbumin. Due on due Goal Unhealthy drug u se screening. Due on due Goal Dental exam. Due on due Goal Hepatitis C scre ening. Due on due Goal Hep B (). Due on due Goal Hemoglobin A1C. Due on due Goal Dilated eye exam. Due on October due Goal ASCVD 10 year risk. Due on due Goal Pneumococcal vac cine. Due on due Goal Urine microalbumin. Due on due Goal Tdap Vaccine. Due on 2023 due Goal Hepatitis C scre ening. Due on due Goal Influenza vaccine. Due on due Goal Colonoscopy. Due on due Goal PRAPARE ASSESSMENT. Due on due Goal Dental exam. Due on due Goal Foot exam. Due on due Goal Tdap. Due on due Goal Diabetes screening. Due on due Goal ECG. Due on due Goal Urinalysis. Due on due Goal Depression scree mando. Due on due Goal Hep A. Due on du e Goal Zoster vaccine ( ). Due on due Goal Lipid panel. Due on 025 due Goal Unhealthy drug u se screening. Due on due Goal Hep A. Due on du e Goal Hep B (). Due on due Goal ECG. Due on due Goal Influenza vaccine. Due on due Goal Unhealthy drug u se screening. Due on due Goal PRAPARE ASSESSMENT. Due on due Goal Tdap Vaccine. Due on 2023 due Goal Urine microalbumin. Due on due Goal Diabetes screening. Due on due Goal Zoster vaccine ( ). Due on due Goal Depression scree mando. Due on due Goal Tdap. Due on due Goal ASCVD 10 year risk. Due on due Goal Hepatitis C scre ening. Due on due Goal Colonoscopy. Due on due Goal Foot exam. Due on due Goal Urinalysis. Due on due Goal Pneumococcal vac cine. Due on due Goal Lipid panel. Due on due Goal Dental exam. Due on due Goal Dilated eye exam. Due on Jul due Goal Lifestyle education regardin g diet completed Goal Pneumococcal vac cine. Due on due Goal Urine microalbumin. Due on O due Goal Dental exam. Due on due Goal Dilated eye exam. Due on Mar due Goal Unhealthy drug u se screening. Due on due Goal Diabetes screening. Due on O due Goal Tdap Vaccine. Due on 2022 due Goal Foot exam. Due on due Goal PRAPARE ASSESSMENT. Due on O due Goal Hepatitis C scre ening. Due on due Goal Urinalysis. Due on due Goal ASCVD 10 year risk. Due on O due Goal Tdap. Due on due Goal Hep B (). Due on 023 due Goal Influenza vaccine. Due on Oc due Goal Lipid panel. Due on 024 due Goal Depression scree mando. Due on due Goal Colonoscopy. Due on 032 due Goal ECG. Due on due Goal Zoster vaccine ( ). Due on due Goal Hemoglobin A1C. Due on due Goal Lifestyle education regardin g diet completed Goal Lipid panel. Due on 024 due Goal ECG. Due on due Goal Diabetes screening. Due on due Goal Urinalysis. Due on due Goal PRAPARE ASSESSMENT. Due on due Goal Pneumococcal vac cine. Due on due Goal Urine microalbumin. Due on due Goal Dental exam. Due on 023 due Goal Colonoscopy. Due on 032 due Goal Foot exam. Due on due Goal Influenza vaccine. Due on due Goal Tdap Vaccine. Due on 2022 due Goal Depression scree mando. Due on due Goal Tdap. Due on due Goal Hemoglobin A1C. Due on due Goal Zoster vaccine ( ). Due on due Goal Dilated eye exam. Due on Feb due Goal Diabetes screening. Due on due Goal Lipid panel. Due on 024 due Goal Urinalysis. Due on due Goal Foot exam. Due on due Goal Pneumococcal vac cine. Due on due Goal Urine microalbumin. Due on due Goal PRAPARE ASSESSMENT. Due on due Goal Zoster vaccine ( ). Due on due Goal Tdap. Due on due Goal Influenza vaccine. Due on due Goal Depression scree mando. Due on due Goal Hemoglobin A1C. Due on due Goal ECG. Due on due Goal Tdap Vaccine. Due on 2022 due Goal Colonoscopy. Due on 032 due Goal Dilated eye exam. Due on Feb due Goal Dental exam. Due on 023 due Goal Lifestyle education regardin g diet completed Goal Hep A. Due on du e Goal Depression scree mando. Due on due Goal Pneumococcal vac cine. Due on due Goal PRAPARE ASSESSMENT. Due on A due Goal Foot exam. Due on due Goal Colonoscopy. Due on due Goal Tdap Vaccine. Due on 2022 due Goal Influenza vaccine. Due on due Goal ECG. Due on due Goal Tdap. Due on due Goal Zoster vaccine ( ). Due on due Goal Diabetes screening. Due on A due Goal Hemoglobin A1C. Due on due Goal Dilated eye exam. Due on Jan due Goal Urine microalbumin. Due on A due Goal Urinalysis. Due on due Goal Lipid panel. Due on 024 due Goal Dental exam. Due on 023 due Goal Weight-reducing diet educati on completed Goal Tdap Vaccine. Due on 2022 due Goal Hemoglobin A1C. Due on due Goal Hep A. Due on du e Goal Zoster vaccine ( ). Due on due Goal Colonoscopy. Due on 032 due Goal Dental exam. Due on 023 due Goal Depression scree mando. Due on due Goal Pneumococcal vac cine. Due on due Goal Urinalysis. Due on due Goal Foot exam. Due on due Goal Influenza vaccine. Due on due Goal Diabetes screening. Due on due Goal Dilated eye exam. Due on Dec due Goal ECG. Due on due Goal PRAPARE ASSESSMENT. Due on due Goal Urine microalbumin. Due on due Goal Tdap. Due on due Goal Lipid panel. Due on due Goal Lifestyle education regardin g diet completed Goal Zoster vaccine ( ). Due on due Goal Influenza vaccine. Due on due Goal Urinalysis. Due on due Goal Dilated eye exam. Due on Nov due Goal Dental exam. Due on due Goal Depression scree mando. Due on due Goal Colonoscopy. Due on due Goal Urine microalbumin. Due on due Goal Foot exam. Due on due Goal Hemoglobin A1C. Due on due Goal Tdap Vaccine. Due on 2022 due Goal Diabetes screening. Due on due Goal Pneumococcal vac cine. Due on due Goal Hep A. Due on du e Goal PRAPARE ASSESSMENT. Due on due Goal Tdap. Due on due Goal ECG. Due on due Goal Lipid panel. Due on due Goal Influenza vaccine. Due on due Goal Urine microalbumin. Due on A due Goal Zoster vaccine ( ). Due on due Goal ECG. Due on due Goal Colonoscopy. Due on due Goal Dental exam. Due on due Goal Lipid panel. Due on due Goal Foot exam. Due on due Goal Diabetes screening. Due on A due Goal Dilated eye exam. Due on Sep due Goal Hemoglobin A1C. Due on due Goal Urinalysis. Due on due Goal Tdap. Due on due Goal PRAPARE ASSESSMENT. Due on A due Goal Depression scree mando. Due on due Goal Tdap Vaccine. Due on 2022 due Goal Pneumococcal vac cine. Due on due Goal Tobacco cessation counseling completed Goal Lifestyle education regardin g diet completed Goal Zoster vaccine ( ). Due on due Goal Urinalysis. Due on due Goal Hemoglobin A1C. Due on due Goal Hep A. Due on du e Goal PRAPARE ASSESSMENT. Due on A due Goal Pneumococcal vac cine. Due on due Goal Tdap Vaccine. Due on 2022 due Goal Urine microalbumin. Due on A due Goal ECG. Due on due Goal Depression scree mando. Due on due Goal Influenza vaccine. Due on Ap due Goal Dilated eye exam. Due on Sep due Goal Tdap. Due on due Goal Foot exam. Due on due Goal Diabetes screening. Due on A due Goal Colonoscopy. Due on 032 due Goal Dental exam. Due on 023 due Goal Lipid panel. Due on 024 due Goal Hep A. Due on du e Goal Pneumococcal vac cine. Due on due Goal Urine microalbumin. Due on due Goal Dilated eye exam. Due on Aug due Goal Lipid panel. Due on due Goal ECG. Due on due Goal Colonoscopy. Due on due Goal Hemoglobin A1C. Due on due Goal Zoster vaccine ( ). Due on due Goal Diabetes screening. Due on due Goal Foot exam. Due on due Goal Urinalysis. Due on due Goal Depression scree mando. Due on due Goal Dental exam. Due on due Goal Tdap Vaccine. Due on 2022 due Goal Tdap. Due on due Goal Influenza vaccine. Due on due Goal PRAPARE ASSESSMENT. Due on due Goal Lifestyle education regardin g diet completed Goal Tobacco cessation counseling completed Goal Hep A. Due on du e Goal Tdap. Due on due Goal Colonoscopy. Due on due Goal Urine microalbumin. Due on due Goal Diabetes screening. Due on due Goal Lipid panel. Due on due Goal ECG. Due on due Goal Influenza vaccine. Due on due Goal Dental exam. Due on due Goal Urinalysis. Due on due Goal PRAPARE ASSESSMENT. Due on due Goal Pneumococcal vac cine. Due on due Goal Hemoglobin A1C. Due on due Goal Zoster vaccine ( ). Due on due Goal Depression scree mando. Due on due Goal Dilated eye exam. Due on Aug due Goal Foot exam. Due on due Goal Tdap Vaccine. Due on 2022 due Goal Hep A. Due on du e Goal PRAPARE ASSESSMENT. Due on due Goal Colonoscopy. Due on 032 due Goal Urinalysis. Due on due Goal Urine microalbumin. Due on due Goal Lipid panel. Due on due Goal Tdap Vaccine. Due on 2022 due Goal ECG. Due on due Goal Hemoglobin A1C. Due on due Goal Tdap. Due on due Goal Diabetes screening. Due on due Goal Dental exam. Due on due Goal Foot exam. Due on due Goal Zoster vaccine ( ). Due on due Goal Pneumococcal vac cine. Due on due Goal Depression scree mando. Due on due Goal Dilated eye exam. Due on Jul due Goal Influenza vaccine. Due on due Goal Dietary manageme nt education, guidance, and counseling completed Goal Zoster vaccine ( ). Due on due Goal Colonoscopy. Due on 032 due Goal ECG. Due on due Goal Lipid panel. Due on 022 due Goal Influenza vaccine. Due on due Goal Hemoglobin A1C. Due on due Goal Pneumococcal vac cine. Due on due Goal Tdap. Due on due Goal Urine microalbumin. Due on due Goal Tdap Vaccine. Due on 2022 due Goal Urinalysis. Due on 23 due Goal PRAPARE ASSESSMENT. Due on due Goal Depression scree mando. Due on due Goal Diabetes screening. Due on due Goal Dilated eye exam. Due on Jul due Goal Dental exam. Due on 023 due Goal Foot exam. Due on 3 due Goal Lifestyle education regardin g diet completed Goal Influenza vaccine. Due on due Goal Hemoglobin A1C. Due on due Goal Tdap. Due on due Goal FOBT. Due on due Goal Lipid panel. Due on due Goal ECG. Due on due Goal Dental exam. Due on due Goal Foot exam. Due on due Goal Urinalysis. Due on due Goal Zoster vaccine ( ). Due on due Goal Urine microalbumin. Due on O due Goal Depression scree mando. Due on due Goal Dilated eye exam. Due on Mar due Goal Colonoscopy. Due on due Goal PRAPARE ASSESSMENT. Due on O due Goal Pneumococcal vac cine. Due on due Goal Diabetes screening. Due on O due Goal Dietary manageme nt education, guidance, and counseling completed Goal Urine microalbumin. Due on due Goal Depression scree mando. Due on due Goal FOBT. Due on due Goal ECG. Due on due Goal Foot exam. Due on 3 due Goal Dental exam. Due on due Goal Pneumococcal vac cine. Due on due Goal Zoster vaccine ( 1st). Due on due Goal Tdap. Due on due Goal Influenza vaccine. Due on due Goal Dilated eye exam. Due on Dec due Goal Lipid panel. Due on due Goal Colonoscopy. Due on due Goal Urinalysis. Due on due Goal Diabetes screening. Due on due Goal Hemoglobin A1C. Due on due Goal Dietary manageme nt education, guidance, and counseling completed Goal Pneumococcal vac cine. Due on due Goal Urine microalbumin. Due on A due Goal ECG. Due on due Goal Hemoglobin A1C. Due on due Goal Foot exam. Due on due Goal Lipid panel. Due on due Goal Dental exam. Due on due Goal Diabetes screening. Due on A due Goal Urinalysis. Due on due Goal Dilated eye exam. Due on Sep due Goal Tobacco cessation counseling completed Goal Dietary manageme nt education, guidance, and counseling completed Goal Urine microalbumin. Due on due Goal Urinalysis. Due on due Goal Diabetes screening. Due on due Goal ECG. Due on due Goal Lipid panel. Due on due Goal Pneumococcal vac cine. Due on due Goal Hemoglobin A1C. Due on due Goal Dental exam. Due on due Goal Dilated eye exam. Due on Jun due Goal Foot exam. Due on due Goal Diabetes screening. Due on due Goal Pneumococcal vac cine. Due on due Goal Urinalysis. Due on due Goal Dental exam. Due on due Goal Urine microalbumin. Due on due Goal Dilated eye exam. Due on Apr due Goal Foot exam. Due on due Goal Hemoglobin A1C. Due on due Goal Lipid panel. Due on due Goal ECG. Due on due Goal Dietary manageme nt education, guidance, and counseling completed Goal Urinalysis. Due on due Goal Diabetes screening. Due on due Goal ECG. Due on due Goal Dental exam. Due on due Goal Dilated eye exam. Due on Mar due Goal Lipid panel. Due on due Goal Hemoglobin A1C. Due on due Goal Pneumococcal vac cine. Due on due Goal Foot exam. Due on due Goal Urine microalbumin. Due on O due Goal Dietary manageme nt education, guidance, and counseling completed Goal Urine microalbumin. Due on M due Goal Dental exam. Due on due Goal Foot exam. Due on due Goal Lipid panel. Due on due Goal Hemoglobin A1C. Due on due Goal Pneumococcal vac cine. Due on due Goal Dilated eye exam. Due on Aug due Goal Dietary manageme nt education, guidance, and counseling completed Goal Tobacco cessation counseling completed Goal Foot exam. Due on due Goal Urine microalbumin. Due on due Goal Lipid panel. Due on due Goal Dental exam. Due on due Goal Dilated eye exam. Due on Aug due Goal Hemoglobin A1C. Due on due Goal Pneumococcal vac cine. Due on due Goal Dilated eye exam. Due on Aug due Goal Urine microalbumin. Due on due Goal Hemoglobin A1C. Due on due Goal Pneumococcal vac cine. Due on due Goal Foot exam. Due on due Goal Lipid panel. Due on due Goal Dental exam. Due on 021 due Referral Ordered: Podiatry (related to Subungual hematoma of toe of right foot, initial encounter) ordered Referral Ordered: Thyroid Ultrasound NECK ANTERIOR ordered Referral Referred To: Physical Therapy Ordered: Referrals: Physical Therapy. Evaluate and treat ordered Referral Referred To: Speech Therapy Ordered: Referrals: Speech Therapy. Evaluate and treat ordered Referral Referred To: Occupational Therapy Ordered: Referrals: Occupational Therapy. Evaluate and treat ordered Referral Referred To: [facility] Ordered: Referrals: Physical Medicine and Rehabilitation. [facility]. Evaluate and treat ordered Referral Ordered: COLONOSCOPY AND BIOPSY ordered Referral Ordered: Referrals: Gastroenterology. Evaluate and treat ordered Referral Ordered: Referrals: Otolaryngology. Evaluate and treat ordered Appointment Lee Johnson Jr BOOKED Appointment Lee Johnson Jr BOOKED Future Order: Lab Order CBC With Differential/Platelet ([id number]), Ordered on: Ordered Future Order: Lab Order Comp. Me tabolic Panel (14) ([id number]), Ordered on: Ordered Future Order: Lab Order Magnesiu m, Serum ([id number]), Ordered on: Ordered Future Order: Lab Order PSA Tota l+% Free ([id number]), Ordered on: Ordered Future Order: Lab Order CBC With Differential/Platelet ([id number]), Ordered on: Ordered Future Order: Lab Order Comp. Me tabolic Panel (14) ([id number]), Ordered on: Ordered Future Order: Lab Order Hemoglob in A1c ([id number]), Ordered on: Ordered Future Order: Lab Order Lipid Pa kirsty With LDL/HDL Ratio ([id number]), Ordered on: Ordered Future Order: Lab Order GLYCOSYL ATED HEMOGLOBIN TEST ([id number]), Collected on: , Sent on: Sent Future Order: Lab Order Barbieu m, Serum ([id number]), Scheduled for: Ordered Future Order: Lab Order Patti m, Serum ([id number]), Scheduled for: Ordered History Of Present Illness Encounter Date Complaint History Of Prese nt Illness F/U HTN and A1C BP today 112/72A 1C: 7.2%//Lisa ALVARADO diabetes The problem is i mproving. Risk factors include: over age [age] years old and sedentary lifestyle. Client is compliant with using medication, and follow-up. Managing with: Oral medications and Insulin. Associated symptoms include: dental disease and weight gain. Pertinent negatives include foot ulcers, frequent infections and slow healing wounds / sores. Additional information: Devin forrest. diabetes The problem is g etting worse. Risk factors include: over age [age] years old and sedentary lifestyle. Client is compliant with using medication, and follow-up. Managing with: Insulin. Associated symptoms include: dental disease and slow healing wounds/sores. Pertinent negatives include frequent infections, urinary frequency and polydipsia. Additional information: Devin FORREST. F/U HTN and DM BP today 114/68A 1C: 7.6Patient complains of a pressure sore on bottom. Thought it was a rash last couple of months.//Lisa RNRas to right buttocks believed started from patient scratching at area however has not improved with use of barrier creams. Did see Dr. Dasilva for Medicare visit recently who believes it is start of pressure ulcer and advised on ring for patient while sitting. No fevers, no purulent drainage to the area. Devin FORREST Medicare preventive Depression s creening score was 1. The client has not felt depressed and has had interest and pleasure doing things recently. Functional Status: Requires assistance with all daily activities on 09/27/2024. SLUMS assessment completed, with a total score of 4, Dementia. Cognitive Status: (Cognitive status has not changed) on 09/27/2024. The ''Up and Go'' test took longer than 30 seconds andthe client needs help with activities of daily living. The client is at risk for falls. The client has not fallen in the last year. The fall(s) did not result in injury. The client has smoke detectors in the home. The client does not have firearms, carbon monoxide detectors in the home. There is no radon in the client's home. Client reports using a seatbelt in vehicles. Client does not take calcium. Client reports not taking Vitamin D. Client does not take a multivitamin. Client does not take folic acid. Relevant history is positive for alcohol use. diabetes The problem is s table. Risk factors include: over age [age] years old and sedentary lifestyle. Client is compliant with using medication, and follow-up. Managing with: Oral medications and Insulin. Associated symptoms include: dental disease. Pertinent negatives include foot ulcers, hypoglycemic episodes and slow healing wounds / sores. Additional information: Devin FORREST. F/U ER Says he recently stayed a month with his parents with spouse recovered from hernia surgery. She thinks he might have taken a few steps backwards. Recently did have to go to ER for stomach bug, both her and patient were treated for stomach bug.Patient wants lab req for A1C. Patient did not want to get out of wheelchair to check weight.Flu: Refuses//Lisa ALVARADO hyperlipidemia Risk factors inc lude age over 50. The client is adhering to medication and follow-up for their hyperlipidemia. Hyperlipidemia management includes statins. Pertinent negatives include diarrhea, foot ulcer, hypoglycemic episodes, nausea, slow healing, vomiting. Additional information: Devin FORREST. Follow up Patient presents with for follow up illness. Patient was able to attend PT/OT for 2 hours yesterday, states he was tired but able to make it through. was able to schedule dental appt on Thursday at [facility] for a consultation. No further concerns noted by or patient at this time - QUEENIE Silveira.[id number] up for hospital admission. Admitted to [facility] over night last week after complaining of left lower dental pain over the weekend leading to severe worsening of symptoms on Thursday and syncopal episode. Per the patient oral intake was decreased on Thursday due to dental pain however patient did not seem ill otherwise watching football at home. Upon admission via ER patient did have several test and labs performed. Was discharged the next day and placed on magnesium tablets. CT of jaw performed with no noted abscess formation. Unable to take magnesium tablets as the patient was having difficulty swallowing the large pill. This has been held by due to concerns for aspiration. Seen by dental at [facility] on 02-24-24. Panorama XR performed of lower jaw with no acute findings per . Placed on antibiotic liquid and referred to dental surgery. At this time dental surgery follow up has not been scheduled. Patient has been taking in fluids since arriving home however has had poor food intake due to dental pain. Per patient the symptoms did improve with antibiotic. Per antibiotic completed yesterday. Devin [id number] of fatigue and poor appetite have significantly improved with patient again attending therapy for PT and OT yesterday. Continues to have pain to neck and mild tooth pain. No fevers at home. Started on magnesium chewables for magnesium deficiency and is tolerating well. No further episodes of syncope at home. Scheduled with Chad saenz for further evaluation of dental issue. Completed antibiotic. Devin FORREST Hospital Follow-up Lee was in h ospital last week, and admitted for one day. Sam was called because he was hard to wake up in the morning. Patient collapsed onto bed when he was awoken in the morning. Stated he had a tooth ache over weekend. They worked him up for stroke. She state they were given magnesium, but he could not swallow pills, and couldn not take antibiotic by pill. They went to dentist and were given liquid antibiotic which he did finish up today.Patient did not want to take weight, is concerned because he is not eating, or drinking very much for about a week. Will try again at end of appointment.//JWJim RNFollow up for hospital admission. Admitted to [facility] over night last week after complaining of left lower dental pain over the weekend leading to severe worsening of symptoms on Thursday and syncopal episode. Per the patient oral intake was decreased on Thursday due to dental pain however patient did not seem ill otherwise watching football at home. Upon admission via ER patient did have several test and labs performed. Was discharged the next day and placed on magnesium tablets. CT of jaw performed with no noted abscess formation. Unable to take magnesium tablets as the patient was having difficulty swallowing the large pill. This has been held by due to concerns for aspiration. Seen by dental at [facility] on 02-24-24. Panorama XR performed of lower jaw with no acute findings per . Placed on antibiotic liquid and referred to dental surgery. At this time dental surgery follow up has not been scheduled. Patient has been taking in fluids since arriving home however has had poor food intake due to dental pain. Per patient the symptoms did improve with antibiotic. Per antibiotic completed yesterday. Devin FORREST er er 3 month follow up Patient presen ts with for 3 month f/u HTN/a1c. Patient's reports that he got glasses 1-2 months ago. No concerns regarding this appointment today - QUEENIE Silveira. diabetes The problem is s table. Risk factors include: over age [age] years old and sedentary lifestyle. Client is compliant with using medication, follow-up, and using education materials. Managing with: Oral medications and Insulin. There are no associated symptoms. diabetes The problem is s table. Risk factors include: over age [age] years old and sedentary lifestyle. Client is compliant with using medication, and follow-up. Managing with: Oral medications and Insulin. Associated symptoms include: weight gain. Pertinent negatives include dental disease, frequent infections and slow healing wounds / sores. Additional information: Devin FORREST. hyperlipidemia Risk factors inc lude age over 50. The client is adhering to medication and follow-up for their hyperlipidemia. The client is not adhering to diet, exercise for their hyperlipidemia. Hyperlipidemia management includes statins. Pertinent negatives include chest pain, frequent infections, slow healing, transient weakness. Additional information: Devin FORREST. diabetes The problem is s table. Risk factors include: over age [age] years old and sedentary lifestyle. Client is compliant with using medication, and follow-up. Managing with: Oral medications and Insulin. Pertinent negatives include dental disease, frequent infections, urinary frequency, polydipsia and slow healing wounds / sores. Additional information: Александр. FU HTN and DM BP today 120/82T ook pulse after having patient stand up 109They are wanting to order home therapy, since they are in a new house and they haven't had any since May.//Lisa RNPatient arrived in wheelchair with . New home in [place] adjustment being done. Patient has improved with his transferring and movement following the stroke via PT and OT, speech slowly continues to improve as well. Patient and would both like for all 3 therapies to be continued at home to maximize the patients ability to perform ADLs. Александр diabetes The problem is i mproving. Risk factors include: over age [age] years old and sedentary lifestyle. Client is compliant with using medication, and follow-up. Managing with: Insulin. There are no associated symptoms. Pertinent negatives include dental disease. Additional information: Devin WINN. hypertension It is currently stable. Risk factors include male gender. The hypertension is exacerbated by nothing. There are no associated symptoms. Additional information: Devin WINN Follow Up Patient is here for hypertension follow-up and A1C. states they have been monitoring blood pressure and HR. States the heart rate is monitored more often as patient is experiencing tachycardia at times. Per , patient experiences this with exertion. Patient has been taking medications as directed. Patient began physical therapy through [facility] outpatient program twice per week. Starting next week, he will be doing speech therapy, and PT/OT for three hours twice per week. Denies depression and anxiety at this time, per , patient is a bit down this week as it is almost one year anniversary since stroke. Denies smoking.//Tricia ALVARADO. Hemoglobin A1C Resulted at 5.3% .//Tricia ALVARADO. F/U Is only taking m etoprolol 12.5mg in the evening.Please check pulse, we had him get up on scale and move around alot before I was able to check it.//Lisa RNReduce metoprolol to once daily, BP improving, continues to take at night. PT/OT/ST going well. No other concerns today. Devin [facility] er f/u Patient seen rec ently in ER. Had new onset seizure, was put on keppra. Seeing neuro through [facility].Thor Brunner RN3 weeks after discharge from hospital, patient no further seizures, continues keppra, neurology updated. Per patient with increased fatigue for 2-3 weeks following admission, notes this has improved significantly over the past 3 days. Denies seizure activity or focal seizure type activity. Patient has begun OT/PT/ST. Devin WINN hypertension It is currently stable. Risk factors include male gender. The hypertension is exacerbated by nothing. Pertinent negatives include chest pain, confusion, dyspnea and headache. 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 Risk factors include: over age [age] years old and sedentary lifestyle. Patient is compliant with using medication, and follow-up. Managing with: Insulin. There are no associated symptoms. Pertinent negatives include chest pain, dyspnea, urinary frequency and polydipsia. 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 hyperlipidemia Risk factors inc lude age over 50. The patient is adhering to medication and follow-up for their hyperlipidemia. Hyperlipidemia management includes statins. Pertinent negatives include chest pain, dizziness, dyspnea and polydipsia. 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 ER ER diabetes The problem is s table. Risk factors include: over age [age] years old and sedentary lifestyle. Patient is compliant with using medication, and follow-up. Managing with: Insulin. Pertinent negatives include blurred vision, diarrhea, frequent infections, urinary frequency, increased fatigue and slow healing wounds / sores. 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 F/U Pt is here for a f/u after restarting Trulicity. Pt has been having no issues with the medication. Highest blood sugar has been in the 170s. states that pt went to the neurologist and they did switch him to baclofen 5mg BID and also discussed that pt might do better being on prozac. //JENNY ReedNeurologist changed baclofen to twice daily, having issues with splitting pills would like order for 5mg BID sent. Baclofen helping with spasms and improved sleep. No longer awakening to urinate at night. Discussed prozac with neurology per neurology [place] to start medication if needed. Continues with OT 3 times per week. Scheduled with Ana O&P for his brace. [facility] F/U Medication Patient was give n copy of complete medical records. PEG tube removed . Weight given by patient from recent appt.Muscle spasms in right arm, and wakes him up at night. Wondering if anything could be done.Question about flomax, Patient is now urinating twice a night. Wanting to know if flomax is causing.Flu: Refused//JWHupp RNFollow up with neurology for first visit since discharge from [facility] is scheduled with September, plans to discuss possible referral to neurology office closer to home for closer follow up. Continues with PT/OT daily. notes Neudexta not approved and symptoms of emotional concerns have improved and both patient and would like to wait on the medication in order to limit amount of medication needed. Spasms to right arm on occasion at night causing pain and poor sleep approx 2-3 days per week. [facility] diabetes The problem is s table. Risk factors include: over age [age] years old and sedentary lifestyle. Patient is compliant with using medication, and follow-up. Managing with: Insulin. Associated symptoms include: nocturia. Pertinent negatives include chest pain, dyspnea, frequent infections, polydipsia and slow healing wounds / sores. Additional information: [facility]. Urinary frequency Patient report s no pain. It occurs occasionally. Patient reports no leakage. The medication used in prior treatment was Flomax and the effectiveness was fair. Associated symptoms include nocturia (2 times per night). Pertinent negatives include dysuria and fever. Additional information: [facility]. est with . Patient here wit h to est with DR leyva MERCHANDISING SPECIALIST. Patient had stroke and is needing a DR to follow. Patient has all services are done at home. PT, OT and speech. Also a nurse visit once a week. is concerned with his emotions. Patient is more tearful. Patient is mentally there but just not able to verbalize due to stroke. Patient has had an increase in pain/discomfort in right arm, shoulder and fingers. OT wonders if it nerve related. OT feels he may have homonymous hemianopia. Patient is having puerperal vision issues on just right side. Patient does see neurologist but not until September. No other issues at this time.Queenie Swift. follow up [facility]. Patient had stroke in and was admitted to [facility] in [place] where craniotomy and clot retrieval were performed. From there he was transferred to [place] and then home. Upon arriving home in late may after initial rehab notes there was a hectic transition leading to confusion with medications. Lee was having issues with urinary retention and concern for UTI and was admitted to [facility] and placed on flomax and then moved to inpatient rehab. Lee has been home since last Thursday. Currently with home health once per week, ST, PT, and OT. helps with him at home. Notes complaints of constipation despite taking colace twice daily. Unable to tolerate senokot. Would like to get a handicap placard for vehicle. Would also like to discuss returning to [facility] the [facility] at some time. Notes he was placed on insulin during his hosptial stay. At this time oncology and chemo is on hold per Dr. Jared Alexander, per oncology CEA could be added to next PCP labs and ct performed at some time. Considering scheduling with Dr. Martinez to discuss removal of peg tube as he no longer uses the peg tube and has been eating and drinking well orally. RGonzlbrittanie ELIGIBILITY AND OCCUPANCY INTERVIEWER A1C Pt here today fo r A1C. Pt states A1C might be elevated d/t having steroid prescribed to him. Pt states just got a port in for chemotherapy. Voices no other issues or concerns at this time. Lyubov.Continues with cancer treatment recent port placement right chest wall. tolerating Trulicity well. Notes he has not taken his BP medication in 2 weeks and BP checks at all visits have been normal. 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 Risk factors include male gender. The hypertension is exacerbated by nothing. There are no associated symptoms. Additional information: Devin [facility] diabetes The problem is s table. Risk factors include: over age [age] years old. Patient is compliant with using medication, follow-up, and using education materials. Pertinent negatives include blurred vision, frequent infections, urinary frequency, hypoglycemic episodes, polydipsia and slow healing wounds / sores. Additional information: Devin [facility]. hypertension Risk factors inc lude male gender. The hypertension is exacerbated by anxiety and stress. Pertinent negatives include chest pain, diaphoresis, headache and transient weakness. Additional information: Devin [facility] diabetes The problem is i mproving. Risk factors include: over age [age] years old. Patient is compliant with using medication, and follow-up. Pertinent negatives include blurred vision, chest pain, diarrhea, foot ulcers, frequent infections, urinary frequency, hypoglycemic episodes, increased fatigue, polydipsia and slow healing wounds / sores. Additional information: [facility]. A1C Patient here for A1C. Last A1C was 8.0 on 10/04/21. Patient is doing well on trulicity. Patient had f/u appts for abnormal colonscopy today.Queenie Swift.Scheduled to have surgery for sigmoid mass removal per Dr. Martinez this month on 01-06-22 with removal of local lymphnodes. Will recieve chemotherapy per Dr. Allen. Off work for total of 8 weeks. Notes he will require an [employer] physical prior to February. [facility] Pt here for DM c heck up and med refills. Pt states he would like to increase Trulicity dose because he is having trouble remembering to take metformin. Pt states he is concerned about bowel habits. Reports he only has a BM 1-2x per week. Denies any other concerns. -Ronald diabetes The problem is i mproving. Risk factors include: over age [age] years old. Patient is compliant with using medication, and follow-up. Pertinent negatives include blurred vision, burning of extremities, chest pain, constant hunger, dental disease, diarrhea, dyspnea, foot ulcers, frequent infections, urinary frequency, heartburn, increased fatigue, nocturia, polydipsia, slow healing wounds / sores and weight loss. Additional information: Devin TATUM. er er F/U DM Meds & HTN Pt here today to f/u DM & HTN. No other issues or concernsTGrodi MAINTENANCE SERVICE TECHNICIAN hypertension It is currently improving. Risk factors include male gender. There are no associated symptoms. Additional information: Devin WINN diabetes The problem is i mproving. Risk factors include: over age [age] years old. Patient is compliant with using medication, and follow-up. Managing with: Oral medications. There are no associated symptoms. Additional information: Devin TATUM. Check up Patient presents today for medication refills for his DM and BP medication. Patient states that he has trouble remembering to take medications on time, pt states that he did use trulicity in the past and liked it but insurance would no longer cover the medication. 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 pt would like medication refills. Pt also states that he has noticed difficulty hearing in his left ear. No other concerns or issues at this time. Kyle ALVARADO hypertension It is currently a new diagnosis. Risk factors include male gender. The hypertension is exacerbated by anxiety. Associated symptoms include tinnitus. Pertinent negatives include chest pain, dyspnea, fatigue, headache, irregular heartbeat/palpitations, nausea and vomiting. Additional information: Devin WINN diabetes The problem is g etting worse. Risk factors include: over age [age] years old. Patient did not use medication, or return for a follow-up. Associated symptoms include: erectile dysfunction and increased fatigue. Pertinent negatives include blurred vision, burning of extremities, chest pain, dental disease, dyspnea, frequent infections, urinary frequency, polydipsia, weight gain and weight loss. Additional information: Susansofiadallas TATUM. back pain follow up Patient here for back pain follow up. Patient said shoulder is not as bad and not as sharp of pain as before. Patient still feels a knot in back of neck. Muscle relaxer isn't helping and only making him tires. Patient says thinks swelling as gone down. Patient is taking metformin. Patient is requesing an rx for new glucose meter. Patient is requesting you to look into left ear. He has not been able to hear out of it for 20+ yrs. No other issues at this time.Queenie Swift. HPI reviewed and accurate. Devin WINN diabetes Risk factors inc lude: over age [age] years old. Patient did not use medication, or return for a follow-up. Managing with: Oral medications. Pertinent negatives include blurred vision, burning of extremities, chest pain, constant hunger, dental disease, diarrhea, dysesthesias, dyspnea, erectile dysfunction, foot ulcers, frequent infections, urinary frequency, heartburn, hypoglycemic episodes, impotence, increased fatigue, nocturia, polydipsia, slow healing wounds / sores, weight gain and weight loss. Additional information: Devin WINN. est care Pt here today to establish care. Pt has a h/o DM. States he was taking Metformin up until a few weeks ago. States he has changed insurances and doctors and would just like a fresh start. Pt reports neck and right shoulder pain that radiates to his left arm/hand. Denies numbness/tingling. States that he was treated for this problem in the past with PT. Denies seeing neuro or neurosurgery for pain. Pt states he pain is aggravated when he stands up in one spot for too long. Pt has had pain for about 10 days. Pt A1C in office today is 8.6. JENNY CunninghamDenies known injury to back pain, notes he did shovel snow 1-2 weeks before pain returned. Pain previously improved with use of PT, noted he did have worsening of pain after chiropractic visit with pain 2 years ago. Denies numbness or tingling to extremities. MRI did note bulging disc in cervical region after last occurrence. Has used 800mg of ibuprofen OTC with no improvement this week, consider use of steroids if possible. [facility] Functional Status Date Functional Assessmen t No Information Instructions Date Instruction Additional Infor mare 1. Take medications as prescribedINCREASE METFORMIN ER TO [id number]. Decrease intake of concentrated sugars and carbohydrates3. Eliminate sugar from all beverages4. ACTVITIY TOLERATED. 5. Follow up in 3 months.6. PLESE ENSURE YOU MAINTAIN GOOD DENTAL HYGIENE AND REGULAR DENTAL VISITS7. Maintain annual eye exams.8. Maintain foot care with well fitting shoes, daily foot checks, and podiatry visits for nail clipping.9. PLEASE CONTACT [facility] AND INFORM TRIAGE NURSE IF YOU RUN OUT OF MEDICATION PRIOR TO YOUR NEXT VISIT. Related to Type 2 diabetes, HbA1c goal < 7% Giving encouragement to exercise Related to Body mass index [BMI] 23.0-23.9, adult Lifestyle education regarding di et Related to Body mass index [BMI] 23.0-23.9, adult 1. Consider getting vaccinated for shingles, you are over the age of 50. Shingles vaccine reduces risk for developing permanent nerve damage as a result of shingles infection, this can lead to long winder tender severe pain an in certain cases loss of eye sight. Contact your insurance to verify preferred site for shingles vaccination and schedule the vaccine. 2. Contact [facility] [phone] EXT [phone] and ask to speak to Anna Jean-Baptiste RN regarding further question with shingles vaccination and coverage.3. For patients without insurance vaccine can be paid for out of pocket at [facility] with cost of approximately $220 PER INJECTION 2 injections needed 2-6 months apart. Related to Need for shingles vaccine 1. Wound culture pen ding2. Good blood sugar control3. restart metformin er4. high protein diet5. Keep area clean dry and covered6. release pressure to area when possible7. Follow up: Referral placed to [facility] If you have not been contacted per specialist office to which you referred to in 2 weeks please contact the Health Center at [phone] and advise triage nurse.8. ER FOR SWELLING REDNESS OR FEVERS. Related to Pressure injury of skin of right buttock, unspecified injury stage 1. Take medications as prescribedRESTART METFORMIN ER 500MG2. Decrease intake of concentrated sugars and carbohydrates3. Eliminate sugar from all beverages4. ACTIVITY TOLERATED5. Follow up in 3 months.6. PLESE ENSURE YOU MAINTAIN GOOD DENTAL HYGIENE AND REGULAR DENTAL VISITS7. Maintain annual eye exams.8. Maintain foot care with well fitting shoes, daily foot checks, and podiatry visits for nail clipping.9. PLEASE CONTACT [facility] AND INFORM TRIAGE NURSE IF YOU RUN OUT OF MEDICATION PRIOR TO YOUR NEXT VISIT. Related to Type 2 diabetes, HbA1c goal < 7% 1. Take blood pressu re medication daily as prescribed.2. Monitor blood pressure at home regularly and record for next follow up visit.3. Reduce sodium intake to 1 tsp (2000mg) per day maximum 4. Participate in moderate intensity aerobic exercise 5 days per week 30 minutes5. No nicotine6. Alcohol ONLY in moderation7. Decrease weight8. Follow up: 3 months Related to Primary hypertension Giving encouragement to exercise Related to Body mass index [BMI] 24.0-24.9, adult Lifestyle education regarding di et Related to Body mass index [BMI] 24.0-24.9, adult Giving encouragement to exercise Related to Body mass index [BMI] 24.0-24.9, adult Lifestyle education regarding di et Related to Body mass index [BMI] 24.0-24.9, adult 1. OINTMENT ORDER ED2. FOLLOW UP 1 WEEK IF NOT IMPROVED. Related to Blepharitis of right upper eyelid, unspecified type COVID-19 vaccination and annual influenza vaccinations are recommended by [facility] to those eligible, you can call to schedule via outpatient vaccination clinic at [phone].You may be also due for Pneumonia vaccine. 1. COVID-19 booster vaccine call to schedule 2. Influenza vaccination- call to schedule3. PCV 20 pneumonia vaccine due- call to schedule Related to Vaccine counseling 1. Consider getting vaccinated for shingles, you are over the age of 50. Shingles vaccine reduces risk for developing permanent nerve damage as a result of shingles infection, this can lead to long winder tender severe pain an in certain cases loss of eye sight. Contact your insurance to verify preferred site for shingles vaccination and schedule the vaccine. 2. Contact [facility] [phone] EXT [phone] and ask to speak to Anna Jean-Baptiste RN regarding further question with shingles vaccination and coverage.3. For patients without insurance vaccine can be paid for out of pocket at [facility] with cost of approximately $180 PER INJECTION 2 injections needed 2-6 months apart. Related to Need for shingles vaccine 1. labs with [facility] [place] , 1. repeat mag level, out patient labs2. Must improve oral intake3. fluids as tolerated. 4. Follow up as scheduled Related to Hypomagnesemia 1. labs with [facility] [place] , 1. repeat K level, out patient labs2. Must improve oral intake3. fluids as tolerated. 4. Follow up as scheduled Related to Hypokalemia 1. Referral to podia try- this is self scheduling you have been provided with list of new grad rn please call today to schedule this appointment. If referral required by new grad rn office please contact [facility] to have referral sent. Related to Subungual hematoma of toe of right foot, initial encounter 1. Take medications as prescribed2. Decrease intake of concentrated sugars and carbohydrates3. Eliminate sugar from all beverages4. Exercise and weight loss5. Maintain foot care with well fitting shoes, daily foot checks, and podiatry visits for nail clipping.6. PLESE ENSURE YOU MAINTAIN GOOD DENTAL HYGIENE AND REGULAR DENTAL VISITS7. Maintain annual eye exams. Related to Type 2 diabetes, HbA1c goal < 7% 1. continue suppleme ntation until appetite improves Related to Hypomagnesemia 1. US of neck ordere dIf you have not been contacted per [facility] 1 week after test ordered please contact the [facility] at [phone] and advise triage nurse. Related to Cervical lymphadenopathy 1. extend amoxicilli n2. ibuprofen 400-600mg OTC 2-3 times per day mild to moderate pain3. Tramadol for severe pain4. Schedule with dental surgeon5. ER for worsening of symptoms or if symptoms not improved 2 days6. start probiotic or daily yogurt7. Follow up 1 week Related to Dentalgia 1. CBC pending2. Con customer care specialist addition of B12 and iron levels3. Follow up 1 week Related to Thrombocytopenia 1. CBC pending2. Con customer care specialist addition of B12 and iron levels3. Follow up 1 week Related to Mild anemia 1. repeat mag level, out patient labs2. Must improve oral intake3. fluids as tolerated. 4. Follow up 1 week Related to Hypomagnesemia 1. Follow up: Referr samy placed to [facility]ECH THERAPY AND OCCUPATIONAL THERAPY If you have not been contacted per specialist office to which you referred to in 2 weeks please contact the [facility] at [phone] and advise triage nurse. Related to Hemiplegia affecting right dominant side, unspecified etiology, unspecified hemiplegia type 1. Take medications as prescribed2. Decrease intake of concentrated sugars and carbohydrates3. Eliminate sugar from all beverages4. Follow up in 3 months. Related to Type 2 diabetes mellitus with hyperglycemia Giving encouragement to exercise Related to Body mass index [BMI] 24.0-24.9, adult Dietary management e ducation, guidance, and counseling Related to Body mass index [BMI] 24.0-24.9, adult 1. Take medications as prescribed.2. Diet limit intake of meals high in LDL cholesterol and increase intake of HDL containing foods.3. Increase fiber to 5-10 grams per day4. Repeat lipids in 6-12 months5. No nicotine or smoking6. Follow up 6 months. Related to Mixed hyperlipidemia 1. increase dietary fiber2. encourage hydration3. FOLLOW UP 3 months or as needed for presence of any of the symptoms described. Related to Low hematocrit 1. medication as ord ered2. Follow up as scheduled3. PT and OT as tolerated Related to Hemiplegia affecting right dominant side, unspecified etiology, unspecified hemiplegia type 1. Take medications as prescribed2. Decrease intake of concentrated sugars and carbohydrates3. Eliminate sugar from all beverages4. RECHECK A1C IN 3-6 MONTHS5. Follow up in 3 months.6. PLESE ENSURE YOU MAINTAIN GOOD DENTAL HYGIENE AND REGULAR DENTAL VISITS7. Maintain annual eye exams.8. Maintain foot care with well fitting shoes, daily foot checks, and podiatry visits for nail clipping. Related to Type 2 diabetes, HbA1c goal < 7% 1. Follow up: Referr al placed to SPEECH OT AND PT If you have not been contacted per specialist office to which you referred to in 2 weeks please contact the [facility] at [phone] and advise triage nurse. Related to Cerebral infarction, unspecified 1. Follow up: Referr al placed to SPEECH OT AND PT If you have not been contacted per specialist office to which you referred to in 2 weeks please contact the [facility] at [phone] and advise triage nurse. Related to Acquired aphasia 1. PSA pending. Related to Prost ate cancer screening 1. Follow up: Referr al placed to SPEECH OT AND PT If you have not been contacted per specialist office to which you referred to in 2 weeks please contact the [facility] at [phone] and advise triage nurse. Related to Hemiplegia affecting right dominant side, unspecified etiology, unspecified hemiplegia type 1. Take medications as prescribedSTOP KODYULICRAKESHSTMULUGETA METFORMIN ER2. Decrease intake of concentrated sugars and carbohydrates3. Eliminate sugar from all beverages4. PT/OT ORDERED5. Follow up in 3 months.6. PLESE ENSURE YOU MAINTAIN GOOD DENTAL HYGIENE AND REGULAR DENTAL VISITS7. Maintain annual eye exams.8. Maintain foot care with well fitting shoes, daily foot checks, and podiatry visits for nail clipping. Related to Type 2 diabetes, HbA1c goal < 7% Giving encouragement to exercise Related to Body mass index [BMI] 21.0-21.9, adult Lifestyle education regarding di et Related to Body mass index [BMI] 21.0-21.9, adult Both COVID-19 vaccin ation BOOSTER and annual influenza vaccinations are recommended by [facility] to those eligible, you can call to schedule via outpatient vaccination clinic at [phone]. 1. COVID-19 BOOSTER call to schedule 2. Influenza vaccination- call to schedule Related to No vaccination-pt refuse 1. Take medications as prescribed.2. Consider counseling3. Well balanced healthy diet4. Use [facility] Hotline for any suicidal or homicidal ideationsTOLL FREE 1-133.595.26495. Follow up: 3 months Related to Depression with anxiety 1. Take blood pressu re medication daily as prescribed.2. Monitor blood pressure at home regularly and record for next follow up visit.3. Reduce sodium intake to 1 tsp (2300mg) per day maximum 4. Follow up: 3 months Related to Primary hypertension 1. Take medications as prescribedREDUCTION OF TRULICITY TO 1.5MG2. Decrease intake of concentrated sugars and carbohydrates3. Eliminate sugar from all beverages4. Follow up in 3 months. Related to Type 2 diabetes mellitus with hyperglycemia Giving encouragement to exercise Related to Body mass index [BMI] 22.0-22.9, adult Lifestyle education regarding di et Related to Body mass index [BMI] 22.0-22.9, adult 1. contiue QHS metop rolol2. Hold one week prior to next visit3. May restart if HR is elevated. 4. Follow up as scheduled. Related to Primary hypertension Giving encouragement to exercise Related to Body mass index [BMI] 23.0-23.9, adult Lifestyle education regarding di et Related to Body mass index [BMI] 23.0-23.9, adult 1. reduce metoprolol to once daily for 1 week2. stop metoprolol 2nd dose after 1 week3. Follow up in office 1-2 weeks Related to Low blood pressure reading 1. continue Keppra2. ER for further seizure activity3. Follow up with neurology as scheduled Related to Witnessed seizure-like activity 1. continue OT/PT/ S T2. follow up as scheduled Related to Hemiplegia affecting right dominant side, unspecified etiology, unspecified hemiplegia type Giving encouragement to exercise Related to Body mass index [BMI] 23.0-23.9, adult Weight-reducing diet education R elated to Body mass index [BMI] 23.0-23.9, adult 1. continue follow u p with neuro and rehab2. medications as ordered3. outpatient OT/ST/PT ordered Related to Hemiplegia affecting right dominant side, unspecified etiology, unspecified hemiplegia type 1. Take medications as prescribed.2. Consider counseling3. Follow up: 6 months Related to Depression with anxiety 1. Take medications as prescribed.2. Diet limit intake of meals high in LDL cholesterol and increase intake of HDL containing foods.3. Increase fiber to 5-10 grams per day4. Follow up 6 months. Related to Mixed hyperlipidemia 1. Take medications as prescribed2. Decrease intake of concentrated sugars and carbohydrates3. Eliminate sugar from all beverages4. Follow up in 3 months. Related to Type 2 diabetes, HbA1c goal < 7% 1. Take blood pressu re medication daily as prescribed.2. Monitor blood pressure at home regularly and record for next follow up visit.3. Reduce sodium intake to 1 tsp (2300mg) per day maximum 4. Follow up: 3 months Related to Primary hypertension Giving encouragement to exercise Related to Body mass index [BMI] 23.0-23.9, adult Lifestyle education regarding di et Related to Body mass index [BMI] 23.0-23.9, adult 1. AFO order placed on 10-03-22 R elated to Cerebral infarction, unspecified 1. AFO order placed on 10-03-22 R elated to Right foot drop 1. Take medications as prescribed.INCREASE REMERON TO 30MG FOR 1 MONTH, IF NOT IMPROVED INCREASE TO 45MG AFTER 1 MONTH2. Follow up: 3 months Related to Depression with anxiety 1. Baclofen 5mg BID2 . continue follow up with neurology3. continue follow up with OT4. Follow up [facility] 3 months Related to Hemiplegia affecting right dominant side, unspecified etiology, unspecified hemiplegia type 1. Take medications as prescribed2. Decrease intake of concentrated sugars and carbohydrates3. Eliminate sugar from all beverages4. Exercise and weight loss5. Follow up in 3 months.6. PLESE ENSURE YOU MAINTAIN GOOD DENTAL HYGIENE AND REGULAR DENTAL VISITS7. Maintain annual eye exams. Related to Type 2 diabetes, HbA1c goal < 7% 1. follow up as needed Related t o Nocturia Giving encouragement to exercise Related to Body mass index [BMI] 23.0-23.9, adult Lifestyle education regarding di et Related to Body mass index [BMI] 23.0-23.9, adult 1. Take medications as prescribedstop lantusstart GLP-1 next daycheck daily blood sugars for 1 week aftercall for FSBS >2002. Decrease intake of concentrated sugars and carbohydrates3. Eliminate sugar from all beverages4. Follow up in 1 months Related to Type 2 diabetes, HbA1c goal < 7% 1. CEA pending Related to Local ized cancer of colon 1. Empty bladder maritza or to bedtime2. limit fluids 2 hours prior to bedtime3. continue flomax4. PSA pending. 5. Follow up 1 month Related to Nocturia 1. Take medications as prescribed.2. Diet limit intake of meals high in LDL cholesterol and increase intake of HDL containing foods.3. Increase fiber to 5-10 grams per day4. Follow up 6 months. Related to Mixed hyperlipidemia 1. Continue follow u p with Neurology as scheduled2. baclofen PRN for spasms3. Continue PT/OT4. atorvastatin as directed5. Follow up 1 month Related to Hemiplegia affecting right dominant side, unspecified etiology, unspecified hemiplegia type Lifestyle education regarding di et Related to Body mass index [BMI] 24.0-24.9, adult Giving encouragement to exercise Related to Body mass index [BMI] 24.0-24.9, adult Giving encouragement to exercise Related to Body mass index [BMI] 23.0-23.9, adult Dietary management e ducation, guidance, and counseling Related to Body mass index [BMI] 23.0-23.9, adult 1. Repeat CT abdomen pelvis in 1 month or sooner if constipation is not improved2. CEA with labs at 1 month visit. 3 Follow up 1 month Related to Localized cancer of colon Both COVID-19 vaccin ation and annual influenza vaccinations are recommended by [facility] to those eligible, you may receive them at your appointment today, if you choose to forgo vaccination today you can call to schedule via outpatient vaccination clinic at [phone]. 1. COVID-19 booster call to schedule2. Influenza vaccination- call to schedule Related to No vaccination-pt refuse 1. Take blood pressu re medication daily as prescribed.2. Monitor blood pressure at home regularly and record for next follow up visit.3. Reduce sodium intake to 1 tsp (2300mg) per day maximum 4. Follow up: 3 months Related to Primary hypertension 1. Take medications as prescribed2. Decrease intake of concentrated sugars and carbohydrates3. Eliminate sugar from all beverages4. Follow up: 1-2 weeks Related to Type 2 diabetes, HbA1c goal < 7% 1. increase dietary fiber2. encourage hydration3. Miralax 1 capful daily4. continue colace5. Follow up if not improved Related to Other constipation 1. Medications refil led 2. continue PT, ST, OT3. continue home health4. continue ASA 81mg as instructed per neurology5. Continue follow up with neurology6. Follow up Dr. Dasilva 1-2 weeksRFay WINN 1 month7. handicap placard provided Related to Cerebrovascular accident (CVA), unspecified mechanism Giving encouragement to exercise Related to Body mass index [BMI] 23.0-23.9, adult Lifestyle education regarding di et Related to Body mass index [BMI] 23.0-23.9, adult 1. Take medications as prescribed2. Decrease intake of concentrated sugars and carbohydrates3. Eliminate sugar from all beverages4. Exercise and weight loss5. Follow up in 3 months.6. PLESE ENSURE YOU MAINTAIN GOOD DENTAL HYGIENE AND REGULAR DENTAL VISITS Related to Controlled type 2 diabetes mellitus without complication, without long-term current use of insulin 1. continue to hold medication.2. Monitor blood pressure at home regularly and record for next follow up visit.3. Reduce sodium intake to 1 tsp (2300mg) per day maximum 4. Participate in moderate intensity aerobic exercise 5 days per week 30 minutes5. No nicotine6. Alcohol in moderation7 Follow up: 3 months Related to Primary hypertension Giving encouragement to exercise Related to Body mass index [BMI] 25.0-25.9, adult Dietary management e ducation, guidance, and counseling Related to Body mass index [BMI] 25.0-25.9, adult 1. Take blood pressu re medication daily as prescribed.RESTART LISINOPRIL 10MG2. Monitor blood pressure at home regularly and record for next follow up visit.3. Reduce sodium intake to 1 tsp (2300mg) per day maximum 4. Participate in moderate intensity aerobic exercise 5 days per week 30 minutes5. No nicotine6. Follow up: 3 months Related to Primary hypertension 1. Take medications as prescribedINCREASE TRULICITY TO 3MG WEEKLY2. Decrease intake of concentrated sugars and carbohydrates3. Eliminate sugar from all beverages4. Exercise and weight loss5. Follow up in 3 months. Related to Type 2 diabetes mellitus with hyperglycemia Giving encouragement to exercise Related to Body mass index [BMI] 26.0-26.9, adult Dietary management e ducation, guidance, and counseling Related to Body mass index [BMI] 26.0-26.9, adult 1. Take medications as prescribedSTOP METFORMININCREASE TRULICITY TO 1.5MG2. Decrease intake of concentrated sugars and carbohydrates3. Exercise and weight loss4. Follow up in 3 months. Related to Type 2 diabetes mellitus with hyperglycemia, without long-term current use of insulin 1. refer to gastro Related to Co ron cancer screening Giving encouragement to exercise Related to Body mass index [BMI] 27.0-27.9, adult Dietary management e ducation, guidance, and counseling Related to Body mass index [BMI] 27.0-27.9, adult 1. Take medications as prescribed2. Decrease intake of concentrated sugars and carbohydrates3. Exercise and weight loss4. Follow up in 2 months. Related to Type 2 diabetes mellitus with hyperglycemia, without long-term current use of insulin 1. Take blood pressu re medication daily as prescribed.2. Monitor blood pressure at home regularly and record for next follow up visit.3. Reduce sodium intake to 1 tsp (2300mg) per day maximum 4. Participate in moderate intensity aerobic exercise 5 days per week 30 minutes5. Avoid cigarette smoke/quit smoking6. Alcohol in moderation7. Decrease weight8. Follow up: 2 months Related to Primary hypertension Giving encouragement to exercise Related to Body mass index [BMI] 26.0-26.9, adult Dietary management e ducation, guidance, and counseling Related to Body mass index [BMI] 26.0-26.9, adult 1. Take medications as prescribed2. Decrease intake of concentrated sugars and carbohydrates3. Exercise and weight loss4. Follow up in 3 months. Related to Type 2 diabetes mellitus with hyperglycemia, without long-term current use of insulin 1. Take blood pressu re medication daily as prescribed.2. Monitor blood pressure at home regularly and record for next follow up visit.3. Reduce sodium intake to 1 tsp (2300mg) per day maximum 4. Participate in moderate intensity aerobic exercise 5 days per week 30 minutes5. Avoid cigarette smoke/quit smoking6. Alcohol in moderation7. Decrease weight8. Follow up: 3 months Related to Primary hypertension Dietary management e ducation, guidance, and counseling Related to Body mass index [BMI] 27.0-27.9, adult Giving encouragement to exercise Related to Body mass index [BMI] 27.0-27.9, adult 1. Take medications as prescribed2. Decrease intake of concentrated sugars and carbohydrates3. Exercise and weight loss4. Follow up in 3 months. Related to Type 2 diabetes mellitus with hyperglycemia, without long-term current use of insulin Giving encouragement to exercise Related to Body mass index [BMI] 27.0-27.9, adult Dietary management e ducation, guidance, and counseling Related to Body mass index [BMI] 27.0-27.9, adult 1. Take medications as prescribed2. Decrease intake of concentrated sugars and carbohydrates3. Exercise and weight loss4. Follow up in 3 months. Related to Type 2 diabetes mellitus with hyperglycemia, without long-term current use of insulin Assessments Type Assessment Date No Information Patient Care Teams Name Effective Dates (start - stop) Status Members No Information
--- OUTSIDE RECORDS SUMMARY | 2025-03-20 09:36 | XMS_ITS ---
Author Name Auto Generated Organization [place] Care Team Providers Care Cupola Melting Supervisor Name Role Phone Luis FORREST-Reza Mata Attending Unavailab rocío Smith COST ACCOUNTANT-C, Reza Primary Care Unavailab rocío Smith [facility] Unavailable Fco Doyle Jr Admitting Unavailable Fco Doyle Jr Attending Unavailable Luis Reza Primary [facility] Unavailable Zina Jansen Admitting Unavailable Zina Jansen Attending Un[facility] Eddie Alxeander II Admitting Unavaila Eddie Arteaga II Attending Unavaila Buck Rodriguez Referring Unavailable PROBLEMS DATE TYPE CONDITION / CODE ATTENDING STATUS RETA Lou 03/20/2025 Working diagnosis Type 2 diabetes, HbA1c goal < 7% / E11.9(ICD-10) Reza Carbone [facility] 03/20/2025 Working diagnosis Body mass index [BMI] 23.0-23.9, adult / Z68.23(ICD-10) Reza Carbone [facility] 02/27/2025 Unknown Malignant neopla sm of sigmoid colon / C18.7(ICD-10) Eddie Alexander II [facility] 10/26/2024 Unknown Other specified dermatitis / L30.8(ICD-10) Zina Jansen [facility] 05/20/2024 Unknown Altered mental status, unspecified / R41.82(ICD-10) Fco Doyle Jr [facility] PROCEDURES DATE CODE DESCRIPTION STATUS SOURCE 12/28/2024 59811(CPT-4) OFFICE/OUTPATIEN T VISIT, EST Completed [facility] 12/28/2024 66729(CPT-4) GLYCOSYLATED HEM OGLOBIN TEST Completed [facility] RESULTS BLOOD CULTURE Observed: 11/07/2024 1:36 PM Status: F Source: [facility] NO GROWTH 5 DAYS PERFORMED BY: [place] [address] PATHOLOGIST FOURTH MATE JOB GORDILLO M.D. Performed By: #### CBC, CUBL D, LIPID, CMP, PSATF #### [facility] [address] COMPLETE BLOOD COUNT AUTO DIFF Collected: 11/07/2024 1:33 PM Status: F Source: F [facility] TYPE CODE TESTS RESULT OUT OF RANGE REFERENCE UNITS LAB WBC White Blood Count 5.5 Normal 4.1-10.5 10*3/uL LAB UNWBC Uncorrected WBC 5.5 Normal 4.1-10.5 10*3/uL LAB RBC Red Blood Count 4.24 Normal 3.90-5.60 10*6/u L LAB HGB Hemoglobin 13.1 Normal 13.0-17.0 g/dL LAB HCT Hematocrit 36.6 Low 38.8-50.0 % LAB MCV Mean Corpuscular Volume 86.2 Normal 83.5-101 fL LAB MCH Mean Corpuscular Hemoglobin 30.8 Normal 27.5-35.2 pg LAB MCHC Mean Corpuscular HGB Conc 35.7 High 32.5-35.6 g/dL LAB RDW Red Cell Distribution Width 13.5 Normal 12.0-14.8 % LAB PLT Platelet Count 165 Normal 150-450 10*3/uL LAB MPV Mean Platelet Volume 7.7 Normal 6.6-10.1 fL LAB NE% Neutrophils % (Auto) 65.9 . % LAB LY% Lymphocytes % (Auto) 25.5 . % LAB MO% Monocytes % (Auto) 5.3 . % LAB EO% Eosinophils % (Auto) 2.1 . % LAB BA% Basophils % (Auto) 1.2 . % LAB NRBC% NRBC% 0.1 Normal 0-0.5 /100{WBC} LAB NE# Neutrophils # (Auto) 3.6 Normal 1.8-7.7 10*3/uL LAB LY# Lymphocytes # (Auto) 1.4 Normal 1.00-4.8 10*3/uL LAB MO# Monocytes # (Auto) 0.3 Normal 0.0-0.8 10*3/uL LAB EO# Eosinophils # (Auto) 0.1 Normal 0.0-0.45 10*3/uL LAB BA# Basophils # (Auto) 0.1 Normal 0.0-0.2 10*3/uL Result Comment: PERFORMED BY : [place] [address] PATHOLOGIST FOURTH MATE LATOYA ESCAMILLA M.D. Performed By: #### CBC, CUBL D, LIPID, CMP, PSATF #### [address] COMPREHENSIVE METABOLIC PANEL Collected: 11/07/2024 1 :33 PM Status: F Source: [facility] TYPE CODE TESTS RESULT OUT OF RANGE REFERENCE UNITS LAB GLU Glucose 225 High 70-100 mg/dL Result Comment: Random Gluco se Reference Range is dependent on time and content of last meal. Glucose of more than 200 mg/dL in a nonstressed, ambulatory subject supports the diagnosis of Diabetes Mellitus. ADA recommended reference range LAB BUN Blood Urea Nitrogen 10 Normal 7-25 mg/d L LAB CREATT Creatinine 0.77 Normal 0.70-1.30 mg/dL LAB GFReNR Estimated GFR >60.0 mL/Min LAB NA Sodium 137 Normal 136-145 mmol/L LAB K Potassium 3.7 Normal 3.5-5.1 mmol/L LAB CL Chloride 100 Normal 98-107 mmol/L LAB CO2 Carbon Dioxide 28.6 Normal 21.0-31.0 mmol/L LAB GAP Anion Gap 12.1 Normal 6.0-15.0 meq/L LAB CA Calcium 9.0 Normal 8.6-10.3 mg/dL LAB TP Total Protein 6.8 Normal 6.4-8.9 g/dL LAB ALB Albumin Level 4.0 Normal 3.5-5.7 g/dL LAB GLOB Globulin 2.8 g/dL LAB AGRATIO Albumin/Globulin Ratio 1.4 LAB BILIT Bilirubin,Total 0.9 Normal 0.3-1.0 mg/dL LAB AST Aspartate Amino Transferase 21 Normal 13-39 U/L LAB ALT Alanine Aminotransferase 15 Normal 7-52 U/L LAB ALP Alkaline Phosphatase 106 High 34-104 U/L LAB CRCLPHA Creatinine Clr C alc Pharmacy 104.57 Performed By: #### CBC, CUBL D, LIPID, CMP, PSATF #### [facility] [address] LIPID PANEL Collected: 11/07/2024 1:33 PM Status: F Source: [facility] TYPE CODE TESTS RESULT OUT OF RANGE REFERENCE UNITS LAB CHOL Cholesterol 97 Low 140-200 mg/dL Result Comment: Chol less th an 200 mg/dl low risk Chol 201-239 mg/dl borderline risk Chol 240 mg/dl and greater high risk LAB HDL HDL Cholesterol 20 Low 23-92 mg/dL Result Comment: HDL CHOL ATP -III CLASSIFICATION Cardiovascular Risk HDL > or equal to 60 mg/dL LOW HDL < 40 mg/dL HIGH LAB TRIG W REF Triglyceride w/Reflex 218 High 0-149 mg/dL Result Comment: TRIG ATP III CLASSIFICATION TRIG less than 150 mg/dL Normal TRIG 150-199 mg/dL Borderline high TRIG 200-500 mg/dL High TRIG greater than 500 mg/dL Very high Standard traceable to the Center for Disease Conrtrol and Prevention (CDC) test method. LAB LDLC LDL Cholesterol,Calc ulated 33 Normal 0-100 mg/dL Result Comment: LDL ATP III CLASSIFICATION LDL less than 100 mg/dL Optimal LDL 100-129 mg/dL Near or above optimal LDL 130-159 mg/dL Borderline high LDL 160-189 mg/dL High LDL greater than 189 mg/dL Very high LAB VLDL VLDL CHOLESTEROL 43 mg/dL LAB CHLHDL Chol/HDL Ratio 4.9 <5.0 Result Comment: PERFORMED BY : [address] [address] PATHOLOGIST FOURTH MATE LATOYA ESCAMILLA M.D. Performed By: #### CBC, CUBL D, LIPID, CMP, PSATF #### [facility] [address] [place] [address] [facility] PSA DIAGNOSTIC (TOTAL FREE) Collected: 11/07/2024 1:33 PM Status: F Source: [facility] TYPE CODE TESTS RESULT OUT OF RANGE REFERENCE UNITS LAB PSATOTAL PSA Total (Not a Screen) 1.020 Normal 0.000-4.000 ng/mL Result Comment: Serial tumor marker results determined by assays using different manufacturers or methods may not be comparable. [facility] marketing and development coordinator and method: [employer] DXI, CHEMILUMINESCENT IMMUNOASSAY. LAB PSAF Prostate Spec Ag, Free 0.130 ng/mL LAB PSAFREE% PSA,FREE% 12.7 % Result Comment: Based on the work of Merary et al.JO-ANN. 27919):1542:47.1998 the percent free PSA may be used to determine the relative risk of prostate cancer in individual men.The percent probability of prostate cancer by patient age for men with non-suspicious ANDREY results and total PSa between 4 and 10 ng/ml is as follows: % Free PSA 50 - 64 yrs. 65 - 75 yrs. 0 - 10 56% 55% 10 - 15 24% 35% 15 - 20 17% 23% 20 - 25 10% 20% >25 5% 9% PERFORMED BY: [address] [address] PATHOLOGIST FOURTH MATE LATOYA ESCAMILLA M.D. Performed By: #### CBC, CUBL D, LIPID, CMP, PSATF #### [facility] [address] [place] [address] [facility] BASIC METABOLIC PANEL Collected: 06/06/2024 3:00 PM Status: F Source: [facility] TYPE CODE TESTS RESULT OUT OF RANGE REFERENCE UNITS LAB GLU Glucose 127 High 70-100 mg/dL Result Comment: Random Gluco se Reference Range is dependent on time and content of last meal. Glucose of more than 200 mg/dL in a nonstressed, ambulatory subject supports the diagnosis of Diabetes Mellitus. ADA recommended reference range LAB BUN Blood Urea Nitrogen 8 Normal 7-25 mg/dL LAB CREATT Creatinine 0.78 Normal 0.70-1.30 mg/dL LAB GFReNR Estimated GFR >60.0 mL/Min LAB NA Sodium 140 Normal 136-145 mmol/L LAB K Potassium 3.1 Low 3.5-5.1 mmol/L LAB CL Chloride 100 Normal 98-107 mmol/L LAB CO2 Carbon Dioxide 29.4 Normal 21.0-31.0 mmol/L LAB GAP Anion Gap 13.7 Normal 6.0-15.0 meq/L LAB CA Calcium 8.6 Normal 8.6-10.3 mg/dL LAB CRCLPHA Creatinine Clr Calc Pharmacy 103.23 Performed By: #### SHIKHA, A1C [facility] eA, MG #### [address] #### HIV SCREEN #### [facility] , MAGNESIUM Collected: 3:00 PM Status: F Source: [facility] TYPE CODE TESTS RESULT OUT OF RANGE REFERENCE UNITS LAB MG Magnesium 1.5 Low 1.9-2.7 mg/dL Result Comment: PERFORMED BY : [place] [address] PATHOLOGIST FOURTH MATE LATOYA ESCAMILLA M.D. Performed By: #### SHIKHA, A1C H eA, MG #### [address] #### HIV SCREEN #### [facility] , HIV 1/O/2 ANTIGEN/ANTIBODY Collected: 08/07/2023 3:00 PM Status: F Source: [facility] TYPE CODE TESTS RESULT OUT OF RANGE REFERENCE UNITS LAB HIV SCRN 4TH HIV Screen 4th Generation Non Reactive Non Reactive Result Comment: HIV-1/HIV-2 antibodies and HIV-1 p24 antigen were NOT detected. There is no laboratory evidence of HIV infection. HIV Negative Performed at: [facility] [id number] Health And Social Care Teacher: Robi Christianson PhD, Phone: [phone] PERFORMED BY: [place] [address] PATHOLOGIST FOURTH MATE LATOYA ESCAMILLA M.D. Performed By: #### BMP, A1C WT eA, MG #### [address] #### HIV SCREEN #### [facility] , A1C WITH ESTIMATED AVERAGE GLU Collected: 06/06/2024 3:00 PM Status: F Source: [facility] TYPE CODE TESTS RESULT OUT OF RANGE REFERENCE UNITS LAB .A1C Hemoglobin A1C 5.5 Normal 4.3-5.6 % Result Comment: Increased ri sk for diabetes: 5.7 - 6.4 diabetes: >6.4 glycemic control for adults with diabetes: <7.0 LAB eAG Estimated Average Glucose 111 mg/dL Result Comment: PERFORMED BY : [place] [address] PATHOLOGIST FOURTH MATE LATOYA ESCAMILLA M.D. Performed By: #### BMP, A1C WT eA, MG #### [address] #### HIV SCREEN #### [facility] , HEP C AB WRFX TO QNT PCR Collected: 06/06/2024 3:00 P M Status: F Source: [facility] TYPE CODE TESTS RESULT OUT OF RANGE REFERENCE UNITS LAB HCV AB. Hepatitis C Virus Antibody Non Reactive Non Reactive LAB RFXHEPCINTERP Interpretation Hepatitis C Comment . Result Comment: Not infected with HCV unless early or acute infection is suspected (which may be delayed in an immunocompromised individual), or other evidence exists to indicate HCV infection. Performed at: - [facility] [id number] Health And Social Care Teacher: Robi Christianson PhD, Phone: [phone] PERFORMED BY: [place] [address] PATHOLOGIST FOURTH MATE LATOYA ESCAMILLA M.D. Performed By: #### HCV RX PC R #### [facility] , CT ABDOMEN PELVIS WO CON Observed: 05/20 8:32 AM Status: COMPLETED Source: [facility] [place] [address] [place] [address] CT Scan Report Signed Patient: Lee Johnson Jr MR#: [id number] 735 : 1965 Acct:[id number] Age/Sex: 59 / M ADM Date: 05/20/24 Loc: ER Room: Type: [facility] ER Attending Dr: Copies to: Fco Doyle Jr, MD Ordering Provider: Fco Doyle Jr, MD Date of Service: 05/20/24 CT/CT abdomen pelvis wo con: fever, abd pain, N/V CT ABDOMEN AND PELVIS WITHOUT CONTRAST COMPARISON: 09/20/2023 CLINICAL DATA: Altered mental status, fever and right-sided abdominal pain. Spiral images were obtained through the abdomen pelvis without contrast. This CT exam was performed using one or more following dose reduction techniques: Automated exposure control, adjustment of the mA and/or kV according to patient size, or use of iterative reconstruction technique. Limited cuts through the lung bases show atelectasis or scarring. Assessment of the intra-abdominal organs is slightly limited by the absence of contrast and artifact through the upper abdomen from patient's arms. The gallbladder contents appear hyperdense and this could be sludge unless patient had a recent outside enhanced study with vicarious excretion of contrast. There are suspected tiny gallstones toward the neck. No intrahepatic masses are identified. The spleen, pancreas and adrenal glands show no acute findings. There is bilateral perinephric fibrofatty stranding. No renal calculi or hydronephrosis are visualized. No ureteral dilatation or stones are seen. There is mild atherosclerotic plaque involving the aorta, iliac and some of the visceral arteries. There are tiny lymph nodes. No ascites is seen. There is moderate air and fluid within the stomach. The small bowel loops are not distended. There is moderate stool along the colon. There is no appendiceal information. Subtle dextroscoliotic curvature and degenerative changes are present spine. Images through the pelvis show nondistended small bowel. There is a sigmoid anastomosis. Stool is present at the distal colon. No diverticular disease is seen. The prostate is slightly prominent with minor mass effect at the bladder trigone. There is a tiny dependent 2 - 3 mm stone within the urinary bladder centrally. No ascites is identified. Degenerative changes are visualized at the SI joints and hips. CT/CT abdomen pelvis wo con IMPRESSION: MINOR CHOLELITHIASIS AND QUESTION OF SLUDGE. NO BOWEL OR URINARY TRACT OBSTRUCTION. TINY URINARY BLADDER STONE. MODERATE COLONIC STOOL. NO ACUTE FINDINGS. Impression dictated by: Maty Arambula M.D.05/20/2024 8:41 AM Dictation Location: [facility] Transcribed By: [facility] 05/20/24 0841 Dictated By: Maty Arambula MD 05/20/24 0832 Signed By: <Electronically signed by MD Maty Arambula in OV> 05/20/[address] HEAD/BRAIN WO CON Observed: 8:25 AM Status: COMPLETED Source: [facility] [place] [address] CT Scan Report Signed Patient: Lee Johnson Jr MR#: [id number] 735 : 1965 Acct:[id number] Age/Sex: 59 / M ADM Date: 05/20/24 Loc: ER Room: Type: [facility] ER Attending Dr: Copies to: Fco Doyle Jr, MD Ordering Provider: Fco Doyle Jr, MD Date of Service: 05/20/24 CT/CT head/brain wo con: AMS fever CT head/brain wo con 05/20/2024 2:58 AM SIGNS AND SYMPTOMS: Altered mental status, fever TECHNIQUE:Multi-detector CT axial slices of the brain were obtained without IV contrast. CT was performed with one or more of the following dose reduction techniques: Automated exposure control, adjustment of the mA and/or kV according to patient size, or use of iterative reconstruction technique. COMPARISON: 01/15/2023 FINDINGS: There is no shift of the midline structures, acute intracranial bleeding, mass effects, or evidence of acute ischemia. Atherosclerotic changes are noted in the intracranial segments of the internal carotid arteries. There is gliosis and encephalomalacia in the left cerebral hemisphere with evidence of overlying craniotomy similar to the prior exam. Heterotopic ossification is noted along the cortex. Calcifications are noted along the falx. Paratracheal white matter hypoattenuation is noted suggesting chronic microvascular ischemic change. The ventricular system is normal in size. The brainstem and the cerebellum are unremarkable. The visualized intraorbital contents, the visualized paranasal sinuses, and the infratemporal soft tissues show no acute abnormality. The osseous structures in the skull base and the calvarium show no abnormality. CT/CT head/brain wo con IMPRESSION: No acute intrarenal pathology. Encephalomalacia and gliosis is noted in the left cerebral hemisphere with overlying craniotomy similar to the prior exam. Similar chronic age-related neurodegenerative changes are redemonstrated as above. Impression dictated by: Constantino Bishop M.D.05/20/2024 8:27 AM Dictation Location: [facility]-- Transcribed By: [facility] 05/20/24826 Dictated By: Constantino Bishop II, MD 05/20/24824 Signed By: <Electronically signed by Constantino Bishop II, MD in OV> 05/20/24826 XR CHEST 1V PORTABLE Observed: 8:12 AM Status: COMPLETED Source: [facility] [place] [address] XRay Report Signed Patient: Lee Johnson Jr MR#: [id number] 735 : 1965 Acct:[id number] Age/Sex: 59 / M ADM Date: 05/20/24 Loc: ER Room: Type: [facility] ER Attending Dr: Copies to: Fco Doyle Jr, MD Ordering Provider: Fco Doyle Jr, MD Date of Service: 05/20/24 XR/XR chest 1V portable: FEVER XR chest 1V portable 05/20/2024 2:58 AM SIGNS AND SYMPTOMS: Altered mental status, fever PROTOCOL: Frontal radiograph of the chest COMPARISON: 04/05/2022 FINDINGS: The trachea is midline. There is a right-sided Rgjhjc-m-Uoxf with the tip at the cavoatrial junction. The heart and mediastinal structures are within normal limits. The lung parenchyma is clear. There is chronic elevation left hemidiaphragm similar to the prior exam. The bony thorax is intact. Degenerative changes are noted in the shoulders and thoracic spine. XR/XR chest 1V portable IMPRESSION: No acute cardiopulmonary pathology. Chronic findings are noted as above. Impression dictated by: Constantino Bishop M.D.05/20/2024 8:25 AM Dictation Location: [facility]--23 Transcribed By: [facility] 05/20/24824 Dictated By: Constantino Bishop II, MD 05/20/24811 Signed By: <Electronically signed by Constantino Bishop II, MD in OV> 05/20/24824 RESPIRATORY (UPPER) PANEL, PCR Observed: 05/20/2024 4:49 AM Status: F Source: [facility] Adenovirus Not detected Bordetella parapertussis Not detected Chlamydia pneumoniae Not detected Coronavirus 229E Not detected Coronavirus HKU1 Not detected Coronavirus NL63 Not detected Coronavirus OC43 Not detected Influenza A Not detected Influenza B Not detected Human Metapneumovirus Not detected Mycoplasma pneumoniae Not detected Parainfluenza Virus 1 Not detected Parainfluenza Virus 2 Not detected Parainfluenza Virus 3 Not detected Parainfluenza Virus 4 Not detected Bordetella pertussis-ptxP Not detected Human Rhino/Enterovirus Not detected Resp. Syncytial Virus Not detected COVID-19 Detected/Not Detected Not detected Blank Space FLUA TEST INCLUDES Influenza A tests for the following clinically FLUA TEST INCLUDES significant subtypes: FLUA TEST INCLUDES - Influenza A FLUA TEST INCLUDES - Influenza A H1 FLUA TEST INCLUDES - Influenza A H1 2009 FLUA TEST INCLUDES - Influenza A H3 Blank Space PERFORMED BY: [address] [address] PATHOLOGIST FOURTH MATE LATOYA ESCAMILLA M.D. Performed By: #### BIOFIRECO VNOTDE, RESP PANEL UPP. #### [facility] [address] [place] [id number] [facility] BIOFIRE NOT DETECTED Collected: 05/20/2024 4:49 AM S tatus: F Source: [facility] TYPE CODE TESTS RESULT OUT OF RANGE REFERENCE UNITS LAB BIOFIRECOVNOTDE BioFire Not Detected Not Detected Not Detecte Result Comment: This is a du plicate RP2.1 COVID (PCR) result to be used for statistical tracking purpose only. PERFORMED BY: [place] [address] PATHOLOGIST FOURTH MATE LATOYA ESCAMILLA M.D. Performed By: #### BIOFIRECO VNOTDE, RESP PANEL UPP. #### [facility] [address] [place] [address] DIPSTICK AND MICROSCOPIC Collected: 4:00 AM Status: F Source: [facility] Order Comment: Name Collecti on Type:: Straight Catheter TYPE CODE TESTS RESULT OUT OF RANGE REFERENCE UNITS LAB UCOL Color,Urine Yellow Yellow LAB UAPP Appearance,Ur ine Clear Clear LAB USG Specificy [place],Urine 1.029 Normal 1.001-1.030 LAB UPH pH,Urine 6.0 Normal 5.0-9.0 LAB ULE Leukocyte Esterase,Urin e Negative Negative LAB UNIT Nitrite,Urine Negative Negative LAB UPRO Protein,Urine 50 High Negative mg/dL LAB UGL Glucose,Urine (UA) Normal Normal LAB UKET Ketones,Urine Trace High Negative LAB UURO Urobilinogen, Urine 6 High Normal mg/dL LAB UBIL Bilirubin,Uri ne Negative Negative LAB UBLD Occult Blood,Urine Negative Negative Result Comment: PERFORMED BY : [address] [address] PATHOLOGIST FOURTH MATE LATOYA ESCAMILLA M.D. LAB URBC RBC,Urine 1 0-4 [HPF] LAB UWBC WBC,Urine 3 0-4 [HPF] LAB UBACT Bacteria,Urin e Rare None Seen LAB UHYALC Hyaline Casts,Urine 0 0-8 [LPF] LAB MUCUS Mucus,Urine 3+ Abnormal Alert Result Comment: PERFORMED BY : [address] [address] PATHOLOGIST FOURTH MATE LATOYA ESCAMILLA M.D. Performed By: #### ADDONUAPL #### [facility] [address] COMPLETE BLOOD COUNT AUTO DIFF Collected: 05/20/2024 3:38 AM Status: F Source: [facility] TYPE CODE TESTS RESULT OUT OF RANGE REFERENCE UNITS LAB WBC White Blood Count 6.9 Normal 4.1-10.5 10*3/uL LAB UNWBC Uncorrected WBC 6.9 Normal 4.1-10.5 10*3/uL LAB RBC Red Blood Count 4.28 Normal 3.90-5.60 10*6/u L LAB HGB Hemoglobin 13.1 Normal 13.0-17.0 g/dL LAB HCT Hematocrit 37.0 Low 38.8-50.0 % LAB MCV Mean Corpuscular Volume 86.6 Normal 83.5-101 fL LAB MCH Mean Corpuscular Hemoglobin 30.6 Normal 27.5-35.2 pg LAB MCHC Mean Corpuscular HGB Conc 35.4 Normal 32.5-35.6 g/dL LAB RDW Red Cell Distribution Width 14.2 Normal 12.0-14.8 % LAB PLT Platelet Count 162 Normal 150-450 10*3/uL LAB MPV Mean Platelet Volume 7.8 Normal 6.6-10.1 fL LAB MDW Monocyte Distribution Width 23.29 High 0.00-20.00 % Result Comment: For adults i n ED, MDW > 20.0 may be associated with a higher risk of sepsis during the first 12 hrs of hospital admission LAB NE% Neutrophils % (Auto) 91.1 . % LAB LY% Lymphocytes % (Auto) 4.7 . % LAB MO% Monocytes % (Auto) 3.1 . % LAB EO% Eosinophils % (Auto) 0.6 . % LAB BA% Basophils % (Auto) 0.5 . % LAB NRBC% NRBC% 0.1 Normal 0-0.5 /100{WBC } LAB NE# Neutrophils # (Auto) 6.3 Normal 1.8-7.7 10*3/uL LAB LY# Lymphocytes # (Auto) 0.3 Low 1.00-4.8 10*3/uL LAB MO# Monocytes # (Auto) 0.2 Normal 0.0-0.8 10*3/uL LAB EO# Eosinophils # (Auto) 0.0 Normal 0.0-0.45 10*3/uL LAB BA# Basophils # (Auto) 0.0 Normal 0.0-0.2 10*3/uL Result Comment: PERFORMED BY : [place] [address] PATHOLOGIST FOURTH MATE LATOYA ESCAMILLA M.D. Performed By: #### CMP, CUBL D, LACTIC, CBC #### [address] LACTIC ACID Collected: 3:38 AM Status: F Source: [facility] TYPE CODE TESTS RESULT OUT OF RANGE REFERENCE UNITS LAB LACTIC Lactic Acid 1.7 0.5-2.2 mmol/L Result Comment: PERFORMED BY : [place] [address] PATHOLOGIST FOURTH MATE LATOYA ESCAMILLA M.D. Performed By: #### CMP, CUBL D, LACTIC, CBC #### [address] COMPREHENSIVE METABOLIC PANEL Collected: 05/20/2024 3 :38 AM Status: F Source: [facility] TYPE CODE TESTS RESULT OUT OF RANGE REFERENCE UNITS LAB GLU Glucose 164 High 70-100 mg/dL Result Comment: Random Gluco se Reference Range is dependent on time and content of last meal. Glucose of more than 200 mg/dL in a nonstressed, ambulatory subject supports the diagnosis of Diabetes Mellitus. ADA recommended reference range LAB BUN Blood Urea Nitrogen 12 Normal 7-25 mg/d L LAB CREATT Creatinine 1.01 Normal 0.70-1.30 mg/dL LAB GFReNR Estimated GFR >60.0 mL/Min LAB NA Sodium 138 Normal 136-145 mmol/L LAB K Potassium 3.1 Low 3.5-5.1 mmol/L LAB CL Chloride 99 Normal 98-107 mmol/L LAB CO2 Carbon Dioxide 26.8 Normal 21.0-31.0 mmol/L LAB GAP Anion Gap 15.3 High 6.0-15.0 meq/L LAB CA Calcium 9.3 Normal 8.6-10.3 mg/dL LAB TP Total Protein 7.4 Normal 6.4-8.9 g/dL LAB ALB Albumin Level 4.3 Normal 3.5-5.7 g/dL LAB GLOB Globulin 3.1 g/dL LAB AGRATIO Albumin/Globulin Ratio 1.4 LAB BILIT Bilirubin,Total 1.8 High 0.3-1.0 mg/dL Result Comment: Samples from patients who have taken Naproxen have shown spurious elevation in Total Bilirubin levels. A metabolite of Naproxen, O-desmethylnaproxen, has been shown to interfere with the Jendrjustinik-Grof method for measuring Total Bilirubin. LAB AST Aspartate Amino Transferase 33 Normal 13-39 U/L LAB ALT Alanine Aminotransferase 28 Normal 7-52 U/L LAB ALP Alkaline Phosphatase 127 High 34-104 U/L LAB CRCLPHA Creatinine Clr C alc Pharmacy 79.72 Result Comment: PERFORMED BY : [place] [address] PATHOLOGIST FOURTH MATE LATOYA ESCAMILLA M.D. Performed By: #### CMP, CUBL D, LACTIC, CBC #### [place] [id number] [facility] BLOOD CULTURE Observed: 05/20/2024 3:38 AM Status: F Source: [facility] NO GROWTH 5 DAYS PERFORMED BY: [place] [address] PATHOLOGIST FOURTH MATE LATOYA ESCAMILLA M.D. Performed By: #### CMP, CUBL D, LACTIC, CBC #### [facility] [facility] [address] [place], [place] [id number] [place] BLOOD CULTURE Observed: 05/20/2024 3:30 AM Status: F Source: [facility] NO GROWTH 5 DAYS PERFORMED BY: [place] [address] PATHOLOGIST FOURTH MATE LATOYA ESCAMILLA M.D. Performed By: #### CMP, CUBL D, LACTIC, CBC #### [facility] [address] [place], [place] [address] [facility] [place] GLUCOSE POCT GLUCOMETERS Collected: 05/20/2024 3:00 A M Status: F Source: [facility] TYPE CODE TESTS RESULT OUT OF RANGE REFERENCE UNITS LAB GLUPOC Glucose Poc Glucometers 172 mg/dL Result Comment: Random Gluco se Reference Range is dependent on time and content of last meal. Glucose of more than 200 mg/dL in a nonstressed, ambulatory subject supports the diagnosis of Diabetes Mellitus. LAB COMM1 Commemt1 Glu2: Cleaned Meter Result Comment: PERFORMED BY : [place] [address] PATHOLOGIST FOURTH MATE LATOYA ESCAMILLA M.D. Performed By: #### GLULS ### # Point of Care testing , ECG 12 LEAD ECG Observed: 05/20/2024 2:58 AM Status: COMPLETED Source: [facility] [place] [address] Electrocardiograph Report Signed Patient: Lee Johnson Jr MR#: [id number] : 1965 Acct:[id number] Age/Sex: 59 / M ADM Date: 05/20/24 Loc: ER Room: Type: [facility] ER Attending Dr: Ordering Provider: Fco Doyle Jr, MD Date of Service: 05/20/24 ECG/ECG 12 lead ECG: FEVER Copies to: Test Reason : Blood Pressure : 132/91 mmHG Vent. Rate : 109 BPM Atrial Rate : 109 BPM P-R Int : 160 ms QRS Dur : 78 ms QT Int : 350 ms P-R-T Axes : 63 65 205 degrees QTcB Int : 471 ms Sinus tachycardia Cannot rule out Inferior infarct , age undetermined Abnormal ECG Confirmed by Nellie Miller ([id number]) on 05/21/2024 5:05:12 PM Referred By: Electronically Signed By: Nellie Miller Transcribed By: MUS Signed By Nellie Miller MD 4 [id number] ALLERGIES DATE TYPE / CODE NAME / CODE REACTION SEVERITY SOURCE 10/12/2024 Drug Allergy/[id number] (SNOMED CT) hydrocodone/[id number](RXNORM) N/V Unknown [facility] ENCOUNTERS ADMIT/DISCHARGE ACCOUNT NUMBER ADMITTING ENCOUNTER CLASS LOCATION SOURCE 03/20/2025 [id number] Ambulatory Building:Unkn own [facility] 02/27/2025 [id number] Eddie [facility] 10/26/2024/ 5 [id number] Zina Jansen [facility] 05/20/2024/ 4 [id number] [facility] PAYERS ENCOUNTER GUARANTOR PAYER SUBSCRIBER SOURCE 03/20/2025 Lee Johnson JrDOB: [place], [place] [address]Syk: (HP) Primary Insurance:Medicare PPSPolicy Number: [id number] Date: [address], [place] [address]KA: Lee Johnson JrDOB: [id number] [address] [place], [place] [address]Jty: () [facility] 03/20/2025 Secondary Insurance:Medical MutualPolicy Number: [id number] e Date:[address], [place] [address]LH: Leta MoraB: [id number] [place], [place] [address]Vhc: (HP) [facility] 02/27/2025 Lee Johnson Jr[address] [place] [address]Vbs: (HP) Primary Insurance:MedicarePo licy Number: [id number] Date:2024-09-20 Lee Johnson JrDOB: [id number] [place] [address]Eus: () [facility] 02/27/2025 Secondary Insurance:MMOPolicy Number: [id number] e Date:[id number] [phone] [place] [address]PD: Leta PopieterDOB: [id number] [place] [place] [address]Fkb: () [facility] 02/27/2025 Tertiary Insurance:Self PayPolicy Number: Effective Date:2023-07-27 NOT GIVENUNK [facility] 10/26/2024 Lee Johnson Jr[address] [place] [address]Wso: () Primary Insurance:MedicarePo licy Number: [id number] Date:2024-10-05 Lee Johnson JrDOB: [id number], [facility]Qps: () [facility] 10/26/2024 Secondary Insurance:MMOPolicy Number: [id number] e Date:[id number] [phone] [place] [address]FI: Leta PoochDOB: [id number] [address] AVCone Health Women's Hospitalstalia[place], [place] [address]Yqu: () [facility] 10/26/2024 Tertiary Insurance:Self PayPolicy Number: Effective Date:2024-10-05 NOT GIVENThe [place] [facility] 05/20/2024 Lee Johnson Jr[address] [place] [address]Lpi: () Primary Insurance:MMOPolicy Number: [id number] e Date:[id number] [phone] [place] [address]DK: Leta PopieterDOB: [id number] [place] [place], [place] [address]Zzz: () [facility] 05/20/2024 Secondary Insurance:Self PayPolicy Number: Effective Date:2024-05-20 NOT GIVENUNK [facility]
--- OUTSIDE RECORDS SUMMARY | 2025-03-20 11:11 | XMS_ITS | Encounter Summary ---
Author Organization [employer] Address [facility] [place] [id number] [address] [place] [address] Care Team Providers Care Air Quality Engineer Name Role Phone Reza Smith [facility] Primary Care Provider Reason for Referral * Diagnostic Imaging (Routine) - Closed Specialty Diagnoses / Procedures Referred By Contac t Referred To Contact Radiology Diagnoses Pain Procedures CT brain without contrast stroke alert [facility] [address] [place] [phone] Phone: tel: fax: Referral ID Status Reason Start Date Expiration Date Visits Re quested Visits Authorized [id number] Closed 04/05/2022 04/05/2023 1 1 * Diagnostic Imaging (Routine) - Closed Specialty Diagnoses / Procedures Referred By Contac t Referred To Contact Radiology Diagnoses Pain Procedures CT angiogram head [facility] [address] [place] [phone] Phone: tel: fax: Referral ID Status Reason Start Date Expiration Date Visits Re quested Visits Authorized [id number] Closed 04/05/2022 04/05/2023 1 1 * Diagnostic Imaging (Routine) - Closed Specialty Diagnoses / Procedures Referred By Contac t Referred To Contact Radiology Diagnoses Pain Procedures CT angiogram carotid [facility] [address] [place] [address] Phone: tel: fax: Referral ID Status Reason Start Date Expiration Date Visits Re quested Visits Authorized [id number] Closed 04/05/2022 04/05/2023 1 1 Encounter Details Date Type Department Care Team (Late st Contact Info) Description 04/05/2022 Orders Only [facility] [address] [place] [address] Transcribe, Orders Support User Pain (Primary Dx) Social History Tobacco Use Types Packs/Day Years Used Date Smoking Tobacco: Never Smokeless Tobacco: Current Chew Alcohol Use Standard Drinks/Week Comments Not Currently 0 (1 standard drink = 0.6 oz pur e alcohol) AUDIT-C Answer Date Recorded Frequency of Alcohol Consumption Never 12/06/2018 Average Number of Drinks Not on file 019 Frequency of Binge Drinking Not on file 11/20 Childcare Answer Date Recorded Childcare Unknown 12/05/2018 Employment Answer Date Recorded Employment Unknown 12/05/2018 Purpose - Life Answer Date Recorded Purpose and direction in life Unknown Sex and Gender Information Value Date Recorded Sex Assigned at Male 09/12/2022 2:37 PM EDT Legal Sex Male 9:03 PM EDT Gender Identity Male 09/12/2022 2:37 PM EDT Sexual Orientation Straight 09/12/2022 2: 37 PM EDT COVID-19 Exposure Response Date Recorded In the last month, have you been in contact with someone who was confirmed or suspected to have Coronavirus / COVID-19? No / Unsure 04/05/2022 12:52 PM EDT documented as of this encounter Functional Status documented as of this encounter Mental Status * Question Answer Entry Date Author Overall Cognitive Status X 04/07/2022 9:10 AM EDT Annalisa Velasco, DOUGLAS-NEEDLE VALVE OPERATOR documented in this encounter Plan of Treatment Not on file documented as of this encounter Results * CT angiogram head (04/05/2022 5:30 AM EDT) us Scanning Provider External IMG CT ORDERABLES Fin al Result * CT angiogram carotid (04/05/2022 5:25 AM EDT) us Scanning Provider External IMG CT ORDERABLES Fin al Result * X-ray chest 1 view (04/05/2022 5:25 AM EDT) us Scanning Provider External IMG DIAGNOSTIC IMAGIN G ORDERABLES Final Result * CT brain without contrast stroke alert (04/05/2022 5:20 AM EDT) us Scanning Provider External IMG CT ORDERABLES Fin al Result documented in this encounter Visit Diagnoses Diagnosis Pain- Primary Generalized pain documented in this encounter Care Teams Air Quality Engineer Relationship Specialty Start Date End Date Reza Smith APRN-[facility] PCP - General Nurse Practitioner 10/08/22 documented as of this encounter
--- OUTSIDE RECORDS SUMMARY | 2025-03-20 11:11 | XMS_ITS | Encounter Summary ---
Author Organization [facility] Address [facility] [id number] [address] [place] [address] Care Team Providers Care Label Printing Machinist Name Role Phone Reza Smith ROBERT-MAGNESIUM MILL OPERATOR Primary Care Provider Encounter Details Date Type Department Care Team (Late st Contact Info) Description 04/05/2022 Orders Only [facility] [address] [place] [phone] External, Scanning Provider Pain (Primary Dx) Social History Tobacco Use [...] Status X 04/07/2022 9:10 AM EDT Annalisa Velasco CCC-TREE TOPPER documented in this encounter Plan of Treatment Not on file documented as of this encounter Visit Diagnoses Diagnosis Pain- Primary Generalized pain documented in this encounter Care Teams Label Printing Machinist Relationship Specialty Start Date End Date Reza Smith APRN-MAGNESIUM MILL OPERATOR PCP - General Nurse Practitioner 10/08/22 documented as of this encounter
--- OUTSIDE RECORDS SUMMARY | 2025-03-20 11:12 | XMS_ITS | Encounter Summary ---
Author Organization [facility] Address [facility] [place] [address] Care Team Providers Care Pediatric Speech Language Pathologist Name Role Phone Unavailable Primary Care Provider Unavailabl e Source Comments In the event this information is protected by the Federal Confidentiality of Alcohol and Drug AbusePatient Records regulations: The Federal rules restrict any use of the information to criminally investigate or prosecute any alcohol or drug abuse patient.[facility] Encounter Details Date Type Department Care Team (Late st Contact Info) Description 04/21/2022 Lab Requisition [facility] [address] [place] [address] Giuseppe Kent, LEAD CONSULTANT.[facility] [address] [place], [place] [id number] Social History Tobacco Use Types Packs/Day Years Used Date Smoking Tobacco: Never Assessed Sex and Gender Information Value Date Recorded Sex Assigned at Not on file Legal Sex Male 6:01 PM EDT Gender Identity Not on file Sexual Orientation Not on file documented as of this encounter Plan of Treatment Not on file documented as of this encounter Procedures Procedure Name Priority Date/Time Associated Diagnosis Comments CBC + DIFF Routine 04/21/2022 5:25 AM EDT BASIC METABOLIC PANEL Routine 04/21/2022 5:25 AM EDT documented in this encounter Results * BASIC METABOLIC PNL (04/21/2022 5:25 AM EDT) [facility] Signature Glucose 93 74 - 99 mg/dL 04/21/2022 10:52 AM [facility] Comment: The [place] Diabetes Association (ADA) provides guidance for cutoff values for fasting glucose and random glucose. The ADA defines fasting as no caloric intake for at least 8 hours. Fasting plasma glucose results between 100 to 125 mg/dL indicate increased risk for diabetes (prediabetes). Fasting plasma glucose results greater than or equal to 126 mg/dL meet the criteria for diagnosis of diabetes. In the absence of unequivocal hyperglycemia, results should be confirmed by repeat testing. In a patient with classic symptoms of hyperglycemia or hyperglycemic crisis, random plasma glucose results greater than or equal to 200 mg/dL meet the criteria for diagnosis of diabetes. Reference: Standards of Medical Care in Diabetes 2016, [place] Diabetes Association. Diabetes Care. 2016.39(Suppl 1). BUN 23 9 - 24 mg/dL 04/21/2022 10:52 AM [facility] Creatinine 0.80 0.73 - 1.22 mg/dL 04/21/2022 10:52 AM [facility] Sodium 138 136 - 144 mmol/L 04/21/2022 10:52 AM [facility] Potassium 3.9 3.7 - 5.1 mmol/L 04/21/2022 10:52 AM [facility] Chloride 100 97 - 105 mmol/L 04/21/2022 10:52 AM [facility] CO2 24 22 - 30 mmol/L 04/21/2022 10:52 AM [facility] Anion Gap 14 9 - 18 mmol/L 04/21/2022 10:52 AM [facility] Calcium, Total 9.3 8.5 - 10.2 mg/dL 04/21/2022 10:52 AM [facility] Estimated Glomerular Filtration Rate 105 >=60 mL/min/1.7 3m 04/21/2022 10:52 AM [facility] Comment:Estimated Glomerular Filtration Rate (eGFR) is calculated using the 2020 CKD-EPI creatinine equation. This equation utilizes serum creatinine, sex, and age as parameters. The creatinine assay has traceable calibration to isotope dilution- mass spectrometry. Refer to KDIGO guidelines for clinical interpretation. In patients with unstable renal function, e.g. those with acute kidney injury, the eGFR may not accurately reflect actual GFR. Blood BLOOD SPECIMEN / Unknown Central Line / Unknown 04/21/2022 5:25 AM EDT 04/21/2022 9:23 AM EDT us Giuseppe Kent LEAD CONSULTANT.[facility] Final Result [facility] [address] [place] [address], * (ABNORMAL) CBC + DIFF (04/21/2022 5:25 AM EDT) WBC 6.60 3.70 - 11.00 k/uL 04/21/2022 10:38 AM EDT [facility] RBC 3.44(L) 4.20 - 6.00 m/uL 04/21/2022 10:38 AM EDT [facility] Hemoglobin 10.7(L) 13.0 - 17.0 g/dL 04/21/2022 10:38 AM EDT [facility] Hematocrit 30.9(L) 39.0 - 51.0 % 04/21/2022 10:38 [facility] MCV 89.8 80.0 - 100.0 fL 04/21/2022 10:38 AM EDT [facility] MCH 31.1 26.0 - 34.0 pg 04/21/2022 10:38 AM EDT [facility] MCHC 34.6 30.5 - 36.0 g/dL 04/21/2022 10:38 AM EDT [facility] RDW-CV 14.4 11.5 - 15.0 % 04/21/2022 10:38 AM EDT [facility] Platelet Count 102(L) 150 - 400 k/uL 04/21/2022 10:38 AM EDT [facility] MPV 11.7 9.0 - 12.7 fL 04/21/2022 10:38 AM EDT [facility] Neutrophils % 58.5 % 04/21/2022 10:38 AM EDT [facility] Abs Neut 3.86 1.45 - 7.50 k/uL 04/21/2022 10:38 AM EDT [facility] Lymphocytes % 25.3 % 04/21/2022 10:38 AM EDT [facility] Abs Lymph 1.67 1.00 - 4.00 k/uL 04/21/2022 10:38 AM EDT [facility] Monocytes % 10.6 % 04/21/2022 10:38 AM EDT [facility] Abs [place] 0.70 <0.87 k/uL 04/21/2022 10:38 AM EDT [facility] Eosinophils % 0.9 % 04/21/2022 10:38 AM EDT [facility] Abs Eosin 0.06 <0.46 k/uL 04/21/2022 10:38 AM EDT [facility] Basophils % 0.3 % 04/21/2022 10:38 AM EDT [facility] Abs Baso <0.03 <0.11 k/uL 04/21/2022 10:38 AM EDT [facility] Immature Granulocytes % 4.4 % 04/21/2022 10:38 AM EDT [facility] Abs Immature Gran 0.29(H) <0.10 k/uL 04/21/2022 10:38 AM EDT [facility] NRBC 0.0 /100 WBC 04/21/2022 10:38 AM EDT [facility] Absolute nRBC <0.01 <0.01 k/uL 04/21/2022 10:38 AM EDT [facility] Diff Type Auto 04/21/2022 10:38 AM EDT [facility] Blood BLOOD SPECIMEN / Unknown Central Line / Unknown 04/21/2022 5:25 AM EDT 04/21/2022 9:23 AM EDT Narrative [facility] - 04/21/2022 10:38 AM EDT This is an appended report. These results have been appended to a previously verified report. us Giuseppe Kent LEAD CONSULTANT.[facility] Final Result [facility] [address] [place] [address], documented in this encounter Visit Diagnoses Not on filedocumented in this encounter
--- OUTSIDE RECORDS SUMMARY | 2025-03-20 11:12 | XMS_ITS | Encounter Summary ---
Author Organization [facility] Address [facility] [place] [address] Care Team Providers Care Shock Absorption Floor Layer Name Role Phone Unavailable Primary Care Provider Unavailabl e Source Comments In the event this information is protected by the Federal Confidentiality of Alcohol and Drug AbusePatient Records regulations: The Federal rules restrict any use of the information to criminally investigate or prosecute any alcohol or drug abuse patient.[facility] Encounter Details Date Type Department Care Team (Late st Contact Info) Description 05/14/2022 Lab Requisition [facility] [address] [place], [place] [phone] [place] [address] [facility] [place] [address] Social History Tobacco Use Types Packs/Day Years Used Date Smoking Tobacco: Unknown Alcohol Use Standard Drinks/Week Comments Not Currently 0 (1 standard drink = 0.6 oz pur e alcohol) Sex and Gender Information Value Date Recorded Sex Assigned at Not on file Legal Sex Male 6:01 PM EDT Gender Identity Not on file Sexual Orientation Not on file COVID-19 Exposure Response Date Recorded In the last 10 days, have yo u been in contact with someone who was confirmed or suspected to have Coronavirus/COVID-19? No / Unsure 05/14/2022 10:49 AM EST documented as of this encounter Plan of Treatment Not on file documented as of this encounter Procedures Procedure Name Priority Date/Time Associated Diagnosis Comments VANCOMYCIN Routine 05/14/2022 1:57 PM EST CBC + DIFF Routine 05/14/2022 6:00 AM EST BASIC METABOLIC PANEL Routine 05/14/2022 6:00 AM EST documented in this encounter Results * (ABNORMAL) VANCOMYCIN (05/14/2022 1:57 PM EST) Vancomycin 22.4(H) 10.0 - 20.0 ug/mL 05/14/2022 5:58 PM EST [facility] Comment:Reference ranges and high/low indicator flags are provided as general guidelines only. The treating physician must determine appropriate target levels/dosing based on the specific clinical situation. Blood BLOOD SPECIMEN / Unknown 05/14/2022 1:57 PM EST 05/14/2022 5:35 PM EST us Khris Noriega MD LABORATORY Final Result [facility] [address] * (ABNORMAL) BASIC METABOLIC PNL (05/14/2022 6:00 AM EST) Glucose 243(H) 74 - 99 mg/dL 05/14/2022 10:53 AM EST [facility] Comment: The [place] Diabetes Association (ADA) provides guidance for cutoff [...] Standards of Medical Care in Diabetes 2016, [place] Diabetes Association. Diabetes Care. 2016.39(Suppl 1). BUN 25(H) 9 - 24 mg/dL 05/14/2022 10:53 AM EST [facility] Creatinine 0.93 0.73 - 1.22 mg/dL 05/14/2022 10:53 AM [facility] Sodium 141 136 - 144 mmol/L 05/14/2022 10:53 AM [facility] Potassium 4.1 3.7 - 5.1 mmol/L 05/14/2022 10:53 AM [facility] Chloride 103 97 - 105 mmol/L 05/14/2022 10:53 AM [facility] CO2 29 22 - 30 mmol/L 05/14/2022 10:53 AM [facility] Anion Gap 9 9 - 18 mmol/L 05/14/2022 10:53 AM [facility] Calcium, Total 8.9 8.5 - 10.2 mg/dL 05/14/2022 10:53 AM [facility] Estimated Glomerular Filtration Rate 97 >=60 mL/min/1. 73m 05/14/2022 10:53 AM [facility] Comment:Estimated Glomerular Filtration Rate (eGFR) [...] SPECIMEN / Unknown Central Line / Unknown 05/14/2022 6:00 AM EST 05/14/2022 9:59 AM EST us Wyatt Slater MD LABORATORY Final Resu lt [facility] [address] [place] [address], * (ABNORMAL) CBC + DIFF (05/14/2022 6:00 AM EST) WBC 4.78 3.70 - 11.00 k/uL 05/14/2022 10:33 AM EST [facility] RBC 2.90(L) 4.20 - 6.00 m/uL 05/14/2022 10:33 AM [facility] Hemoglobin 9.1(L) 13.0 - 17.0 g/dL 05/14/2022 10:33 AM [facility] Hematocrit 27.6(L) 39.0 - 51.0 % 05/14/2022 10:33 AM [facility] MCV 95.2 80.0 - 100.0 fL 05/14/2022 10:33 AM [facility] MCH 31.4 26.0 - 34.0 pg 05/14/2022 10:33 AM [facility] MCHC 33.0 30.5 - 36.0 g/dL 05/14/2022 10:33 AM [facility] RDW-CV 13.8 11.5 - 15.0 % 05/14/2022 10:33 AM [facility] Platelet Count 156 150 - 400 k/uL 05/14/2022 10:33 AM [facility] MPV 11.2 9.0 - 12.7 fL 05/14/2022 10:33 AM [facility] Neutrophils % 59.4 % 05/14/2022 10:33 AM [facility] Abs Neut 2.84 1.45 - 7.50 k/uL 05/14/2022 10:33 AM [facility] Lymphocytes % 25.1 % 05/14/2022 10:33 AM [facility] Abs Lymph 1.20 1.00 - 4.00 k/uL 05/14/2022 10:33 AM [facility] Monocytes % 9.6 % 05/14/2022 10:33 AM [facility] Abs [place] 0.46 <0.87 k/uL 05/14/2022 10:33 AM [facility] Eosinophils % 3.8 % 05/14/2022 10:33 AM EST [facility] Abs Eosin 0.18 <0.46 k/uL 05/14/2022 10:33 AM EST [facility] Basophils % 1.3 % 05/14/2022 10:33 AM [facility] Abs Baso 0.06 <0.11 k/uL 05/14/2022 10:33 AM [facility] Immature Granulocytes % 0.8 % 05/14/2022 10:33 AM [facility] Abs Immature Gran 0.04 <0.10 k/uL 05/14/2022 10:33 AM EST [facility] NRBC 0.0 /100 WBC 05/14/2022 10:33 AM EST [facility] Absolute nRBC <0.01 <0.01 k/uL 05/14/2022 10:33 AM EST [facility] Diff Type Auto 05/14/2022 10:33 AM EST [facility] Blood BLOOD SPECIMEN / Unknown Central Line / Unknown 05/14/2022 6:00 AM EST 05/14/2022 9:59 AM EST Narrative [facility] - 05/14/2022 10:33 AM EST This is an appended report. These results have been appended to a previously verified report. us Wyatt Slater MD LABORATORY Final Resu lt [facility] [address] documented in this encounter Visit Diagnoses Not on filedocumented in this encounter
--- OUTSIDE RECORDS SUMMARY | 2025-03-20 11:12 | XMS_ITS | Encounter Summary ---
Author Organization [employer] [facility] Address [id number] [place] [address] Care Team Providers Care Administrative Office Assistant Name Role Phone Reza Smith [facility]NNEW [facility] Primary Care Provider Reason for Referral * Diagnostic Imaging (Routine) - Closed Specialty Diagnoses / Procedures Referred By Contac t Referred To Contact Radiology Diagnoses Pain Procedures CT brain without contrast stroke alert [facility] [address] [place] [phone] Phone: tel: fax: Referral ID Status Reason Start Date Expiration Date Visits Re quested Visits Authorized [id number] Closed 02/22/2024 02/21/2025 1 1 * Diagnostic Imaging (Routine) - Closed Specialty Diagnoses / Procedures Referred By Contac t Referred To Contact Radiology Diagnoses Pain Procedures CT angiogram head [facility] [address] [place] [phone] Phone: tel: fax: Referral ID Status Reason Start Date Expiration Date Visits Re quested Visits Authorized [id number] Closed 02/22/2024 02/21/2025 1 1 Encounter Details Date Type Department Care Team (Late st Contact Info) Description 02/22/2024 Orders Only [facility] [place] [address] External, Scanning Provider Pain (Primary Dx) Social History Tobacco Use Types Packs/Day Years Used Date Smoking Tobacco: Never Smokeless Tobacco: Former Chew Alcohol Use Standard Drinks/Week Comments Not Currently 0 (1 standard drink = 0.6 oz pur e alcohol) AUDIT-C Answer Date Recorded Frequency of Alcohol Consumption Never 12/06/2018 Average Number of Drinks Not on file 019 Frequency of Binge Drinking Not on file 11/20 PHQ-2 Answer Date Recorded Total Score 0 10/23/2023 Childcare Answer Date Recorded Childcare Unknown 12/05/2018 Employment Answer Date Recorded Employment Unknown 12/05/2018 Hunger Screening Answer Date Recorded Within the past 12 months we worried whether our food would run out before we got money to buy more. Never True 10/23/2023 Within the past 12 months th e food we bought just didn't last and we didn't have money to get more. Never True 10/23/2023 Purpose - Life Answer Date Recorded Purpose and direction in life Unknown Sex and Gender Information Value Date Recorded Sex Assigned at Male 09/12/2022 2:37 PM EDT Legal Sex Male 9:03 PM EDT Gender Identity Male 09/12/2022 2:37 PM EDT Sexual Orientation Straight 09/12/2022 2: 37 PM EDT documented as of this encounter Plan of Treatment Not on file documented as of this encounter Goals Goal Patient Goal Type Associated Problems Recent Progress Patient-Stated? Author Patien will DC to [facility] General Yes Mackenzie Byers, JENNY Note: Evaluation of progress towards goal: Pt will DC to [facility]. documented as of this encounter Results * CT angiogram head (02/22/2024 2:10 PM EDT) us Scanning Provider External IMG CT ORDERABLES Fin al Result * CT brain without contrast stroke alert (02/22/2024 12:20 PM EDT) us Scanning Provider External IMG CT ORDERABLES Fin al Result documented in this encounter Visit Diagnoses Diagnosis Pain- Primary Generalized pain documented in this encounter Additional Health Concerns Assessment Noted Time PHQ-9 Depression Total Score: 0 10/23/19 24 11:07 AM EDT documented as of this encounter Care Teams Administrative Office Assistant Relationship Specialty Start Date End Date Reza Smith APRN-TATUM PCP - General Nurse Practitioner 10/08/22 documented as of this encounter
--- OUTSIDE RECORDS SUMMARY | 2025-03-20 11:12 | XMS_ITS | Encounter Summary ---
Author Organization [facility] Address [facility] [place] [address] Care Team Providers Care Scientific Informatics Leader Name Role Phone Unavailable Primary Care Provider Unavailabl e Source Comments In the event this information is protected by the Federal Confidentiality of Alcohol and Drug AbusePatient Records regulations: The Federal rules restrict any use of the information to criminally investigate or prosecute any alcohol or drug abuse patient.[facility] Encounter Details Date Type Department Care Team (Late st Contact Info) Description 04/29/2022 Lab Requisition [facility] [address] [id number] Amanda Soliman APRN.BUSINESS SOLUTIONS ARCHITECT [address] [place] [address] Social History Tobacco Use Types Packs/Day Years [...] suspected to have Coronavirus/COVID-19? No / Unsure 04/25/2022 11:53 AM EDT documented as of this encounter Plan of Treatment Not on file documented as of this encounter Procedures Procedure Name Priority Date/Time Associated Diagnosis Comments URINALYSIS, WITH MICROSCOPIC Routine 04/29/2022 3:50 PM EST BACTERIAL CULTURE, URINE Routine 04/29/2022 3:50 PM EST documented in this encounter Results * URINE CULTURE (04/29/2022 3:50 PM EST) Culture, Urine No growth (<1,000 CFU/ml) 05/01/2022 8:50 AM EST [facility] Urine URINE SPECIMEN OBTAINED BY CLEAN CATCH PROCEDURE / Unknown 04/29/2022 3:50 PM EST 04/29/2022 6:57 PM EST us Amanda Soliman COLOR CONTROL SUPERVISOR.BUSINESS SOLUTIONS ARCHITECT MICROBIOLOGY Final Re sult [facility] [address] [place] [address], [place] * (ABNORMAL) URINALYSIS, WITH MICROSCOPIC (04/29/2022 3:50 PM EST) Color Yellow Yellow 04/29/2022 7:23 PM EST [facility] Clarity Clear Clear 04/29/2022 7:23 PM EST [facility] Glucose, Urine 4+(A) Negative 04/29/2022 7:23 PM EST [facility] Bilirubin, Urine Negative Negative 04/29/20 7:23 PM EST [facility] Ketones, Urine Negative Negative 04/29/2022 7:23 PM EST [facility] Specific [place], Ur 1.016 1.005 - 1.030 04/29/2022 7:23 PM EST [facility] Hemoglobin/Blood ,Ur Negative Negative 04/29/2022 7:23 PM EST [facility] pH, Urine 6.5 5.0 - 8.0 04/29/2022 7:23 PM EST [facility] Protein, Urine Trace(A) Negative 04/29/2022 7:23 PM EST [facility] Urobilinogen Negative Negative 04/29/2022 7:23 PM EST [facility] Nitrites Negative Negative 04/29/2022 7:23 PM EST [facility] Leuk Esterase Negative Negative 04/29/2022 7:23 PM EST [facility] WBC, Urine 0-5 /HPF 0-5 /HPF 04/29/2022 7:23 PM EST [facility] RBC, Urine 3-5 /HPF(A) 0-3 /HPF 04/29/2022 7:23 PM EST [facility] Bacteria Rare(A) None Seen /HPF 04/29/2022 7:23 PM EST [facility] Urine URINE SPECIMEN OBTAINED BY CLEAN CATCH PROCEDURE / Unknown 04/29/2022 3:50 PM EST 04/29/2022 6:57 PM EST us Amanda Soliman APRN.BUSINESS SOLUTIONS ARCHITECT LABORATORY Final Re sult [facility] [address] documented in this encounter Visit Diagnoses Not on filedocumented in this encounter
--- OUTSIDE RECORDS SUMMARY | 2025-03-20 11:12 | XMS_ITS | Encounter Summary ---
Author Organization [facility] Address [facility] [place] [address] Care Team Providers Care Bench Scientist Name Role Phone Unavailable Primary Care Provider Unavailabl e Source Comments In the event this information is protected by the Federal Confidentiality of Alcohol and Drug AbusePatient Records regulations: The Federal rules restrict any use of the information to criminally investigate or prosecute any alcohol or drug abuse patient.[facility] Encounter Details Date Type Department Care Team (Late st Contact Info) Description 04/23/2022 Lab Requisition [facility] [address] [place] [address] [place] [address] [facility] [place] [address] Social History Tobacco Use Types [...] Procedure Name Priority Date/Time Associated Diagnosis Comments BASIC METABOLIC PANEL Routine 04/23/2022 4:55 AM EDT documented in this encounter Results * (ABNORMAL) BASIC METABOLIC PNL (04/23/2022 4:55 AM EDT) Glucose 93 74 - 99 mg/dL 04/23/2022 10:[facility] Comment: The [place] Diabetes [employer] (ADA) provides guidance for cutoff [...] Standards of Medical Care in Diabetes 2016, [place] [employer]. Diabetes Care. 2016.39(Suppl 1). BUN 25(H) 9 - 24 mg/dL 04/23/2022 10:10 [facility] Creatinine 0.78 0.73 - 1.22 mg/dL 04/23/2022 10:10 [facility] Sodium 136 136 - 144 mmol/L 04/23/2022 10:10 [facility] Potassium 4.0 3.7 - 5.1 mmol/L 04/23/2022 10:10 [facility] Chloride 98 97 - 105 mmol/L 04/23/2022 10:10 [facility] CO2 27 22 - 30 mmol/L 04/23/2022 10:10 [facility] Anion Gap 11 9 - 18 mmol/L 04/23/2022 10:10 [facility] Calcium, Total 9.6 8.5 - 10.2 mg/dL 04/23/2022 10:10 [facility] Estimated Glomerular Filtration Rate 105 >=60 mL/min/1.7 3m 04/23/2022 10:10 AM [facility] Comment:Estimated Glomerular Filtration Rate (eGFR) [...] SPECIMEN / Unknown Central Line / Unknown 04/23/2022 4:55 AM EDT 04/23/2022 9:20 AM EDT us Wyatt Slater MD LABORATORY Final Resu lt [facility] [address] [place] [address], documented in this encounter Visit Diagnoses Not on filedocumented in this encounter
--- OUTSIDE RECORDS SUMMARY | 2025-03-20 11:12 | XMS_ITS | Clinical Summary ---
Author Organization [facility] Address [address] [place] [address] Care Team Providers Care Psychiatric Aide Name Role Phone Reza Smith Primary Care Provider [phone] Allergies No known active allergies Medications multivitamin with minerals tablet tablet Take 1 tablet by mouth nightly. 0 06/04/20 22 Active acetaminophen (TYLENOL) 325 MG tablet Take 2 tablets (650 mg total) by mouth every 6 (six) hours as needed (Mild pain (finding), Headache (finding)). 0 06/17/20 22 Active amantadine (SYMMETREL) 100 MG capsule Take 1 capsule (100 mg total) by mouth in the morning. 90 capsule 06/17/20 Active ascorbic acid (VITAMIN C) 500 MG tablet Take 1 tablet (500 mg total) by mouth in the morning. 90 tablet 06/17/20 22 Active atorvastatin (LIPITOR) 40 MG tablet Take 1 tablet (40 mg total) by mouth nightly. 90 tablet 06/17/20 22 Active cholecalciferol (VITAMIN D3) 25 MCG (1000 UT) tablet Take 2 tablets (2,000 Units total) by mouth in the morning. 180 tablet 06/17/20 Active docusate 150 MG/15ML liquid Take 10 mL (100 mg total) by mouth in the morning and 10 mL (100 mg total) before bedtime. 600 mL 06/17/20 Active midodrine (PROAMATINE) 2.5 MG tablet Take 1 tablet (2.5 mg total) by mouth 2 (two) times a day with breakfast and lunch. 180 tablet 06/17/20 Active ondansetron ODT (ZOFRAN-ODT) 4 MG disintegrating tablet Take 1 tablet (4 mg total) by mouth every 8 (eight) hours as needed for nausea or vomiting. 60 tablet 06/17/20 Active QUEtiapine (SEROquel) 25 MG tabletIndications: Agitation,Behavior al Disorders associated with Dementia Administer 0.5 tablets (12.5 mg total) per tube nightly as needed (agitation) Indications: Agitation, Behavioral Disorders associated with Dementia. 30 tablet 06/17/20 Active senna (SENOKOT) 8.6 MG tablet Take 1 tablet (8.6 mg total) by mouth nightly. 90 tablet 06/17/20 Active insulin aspart (NovoLOG) 100 UNIT/ML solution pen-injector Inject 0.08 mL (8 Units total) under the skin in the morning and 0.08 mL (8 Units total) at noon and 0.08 mL (8 Units total) in the evening. Inject with meals. 5 pen 06/17/20 Active insulin glargine (LANTUS) 100 UNIT/ML solution pen-injector pen-injector Inject 0.25 mL (25 Units total) under the skin nightly. 5 pen 06/17/20 Active Insulin Pen Needle 29G X 8MM misc Inject 1 application under the skin in the morning and 1 application at noon and 1 application in the evening and 1 application before bedtime. 200 each 06/17/20 Active Active Problems Problem Noted Date Diagnosed Date Stroke 05/09/2022 Cerebrovascular accident 04/18/2022 Hyperlipidemia 06/03/2013 Type 2 diabetes mellitus 10/01/2012 Immunizations Immunization Administration Dates Next [facility] SARS-CoV-2 Vaccination (Deferred: Not eligible - Medical contraindication - received already),04/24/2021(Deferred: Offered and declined - received outside facility) Pfizer SARS-CoV-2 Vaccination 05/09/2022 (Deferred: Offered and declined - Covid vaccine x3 - dates unknown) Social History Tobacco Use Types Packs/Day Years Used Date Smoking Tobacco: Never Smokeless Tobacco: Former Quit: 04/05/2022 Alcohol Use Standard Drinks/Week Comments Never 0 (1 standard drink = 0.6 oz pur e alcohol) Sex and Gender Information Value Date Recorded Sex Assigned at Not on file Legal Sex Male 12:17 PM EDT Gender Identity Not on file Sexual Orientation Not on file Last Filed Vital Signs Vital Sign Reading Time Taken Comments Blood Pressure 102/64 06/18/2022 7:46 AM EST Pulse 100 06/18/2022 7:46 AM EST Temperature 36.3 C (97.4 F) 06/18/2022 7:46 AM EST Respiratory Rate 18 06/18/2022 7:46 AM EST Oxygen Saturation 100% 06/18/2022 7:46 AM EST Inhaled Oxygen Concentration - - Weight 78 kg (172 lb) 06/13/2022 9:33 AM EST Height 167.6 cm (5' 6 ) 05/10/2022 12:12 PM EST Body Mass Index 27.76 05/10/2022 12:12 PM EST Plan of Treatment Health Maintenance Due Date Last Done Comments CT Colonography 1966 Colonoscopy 1966 Colorectal Cancer Screening 1966 FIT-DNA (Cologuard) 1966 FIT 1966 FOBT 1966 Hemoglobin A1C 1966 Sigmoidoscopy 1966 Annual Visit Topic 1967 MMR Vaccines (1 of 1 - Stand haleigh series) 1967 Ophthalmology Exam 1976 Urine Microalbumin 1976 Hepatitis C Screening 1984 DTaP/Tdap/Td Vaccines (1 - Tdap) 1985 Hepatitis B Vaccines (1 of 3 - 19+ 3-dose series) 1985 PSA Test 2021 HIB Vaccines Aged Out No longer eligi ble based on patient's age to complete this topic HPV Vaccines Aged Out No longer eligi ble based on patient's age to complete this topic Hepatitis A Vaccines Aged Out No long er eligible based on patient's age to complete this topic IPV Vaccines Aged Out No longer eligi ble based on patient's age to complete this topic Meningococcal Vaccine Aged Out No ron marnie eligible based on patient's age to complete this topic Pneumococcal Vaccine: Pediat rics (0 to 5 years) and At-Risk Patients (6 to 64 Years) Aged Out No longer eligible b ased on patient's age to complete this topic Advance Directives * Full Resuscitation (Latest Code Status on File) Date Activated Date Inactivated Comments 05/09/2022 2:31 PM 06/18/2022 5:01 PM * Full Resuscitation Date Activated Date Inactivated Comments 04/18/2022 6:03 PM 05/01/2022 7:21 PM * Full Resuscitation Date Activated Date Inactivated Comments 04/18/2022 6:03 PM 04/18/2022 6:03 PM Care Teams Psychiatric Aide Relationship Specialty Start Date End Date Reza Smith [address] [place] [phone] PCP - General 04/23/22
--- OUTSIDE RECORDS SUMMARY | 2025-03-20 11:12 | XMS_ITS | Encounter Summary ---
Author Organization [facility] Address [facility] [place] [address] Care Team Providers Care Microfilming Document Preparer Name Role Phone Unavailable Primary Care Provider Unavailabl e Source Comments In the event this information is protected by the Federal Confidentiality of Alcohol and Drug AbusePatient Records regulations: The Federal rules restrict any use of the information to criminally investigate or prosecute any alcohol or drug abuse patient.[facility] Encounter Details Date Type Department Care Team (Late st Contact Info) Description 04/28/2022 Lab Requisition [facility] [address] [place] [address] Giuseppe Kent, PHONOGRAPH NEEDLE TIP MAKER.AGENCY LEGAL COUNSEL [address] [place], [place] [id number] Social History Tobacco Use Types Packs/Day Years [...] Associated Diagnosis Comments CBC + DIFF Routine 04/28/2022 5:50 AM EST BASIC METABOLIC PANEL Routine 04/28/2022 5:50 AM EST documented in this encounter Results * (ABNORMAL) CBC + DIFF (04/28/2022 5:50 AM EST) WBC 9.86 3.70 - 11.00 k/uL 04/28/2022 11:03 AM EST [facility] RBC 3.57(L) 4.20 - 6.00 m/uL 04/28/2022 11:03 AM EST [facility] Hemoglobin 11.1(L) 13.0 - 17.0 g/dL 04/28/2022 11:03 AM EST [facility] Hematocrit 32.8(L) 39.0 - 51.0 % 04/28/2022 11:03 AM EST [facility] MCV 91.9 80.0 - 100.0 fL 04/28/2022 11:03 AM EST [facility] MCH 31.1 26.0 - 34.0 pg 04/28/2022 11:03 AM EST [facility] MCHC 33.8 30.5 - 36.0 g/dL 04/28/2022 11:03 AM EST [facility] RDW-CV 14.3 11.5 - 15.0 % 04/28/2022 11:03 AM EST [facility] Platelet Count 129(L) 150 - 400 k/uL 04/28/2022 11:03 AM EST [facility] MPV 11.6 9.0 - 12.7 fL 04/28/2022 11:03 AM EST [facility] Neutrophils % 77.2 % 04/28/2022 11:03 AM EST [facility] Abs Neut 7.61(H) 1.45 - 7.50 k/uL 04/28/2022 11:03 AM EST [facility] Lymphocytes % 13.3 % 04/28/2022 11:03 AM EST [facility] Abs Lymph 1.31 1.00 - 4.00 k/uL 04/28/2022 11:03 AM EST [facility] Monocytes % 6.6 % 04/28/2022 11:03 AM EST [facility] Abs [place] 0.65 <0.87 k/uL 04/28/2022 11:03 AM EST [facility] Eosinophils % 1.3 % 04/28/2022 11:03 AM EST [facility] Abs Eosin 0.13 <0.46 k/uL 04/28/2022 11:03 AM EST [facility] Basophils % 0.4 % 04/28/2022 11:03 AM EST [facility] Abs Baso 0.04 <0.11 k/uL 04/28/2022 11:03 AM EST [facility] Immature Granulocytes % 1.2 % 04/28/2022 11:03 AM EST [facility] Abs Immature Gran 0.12(H) <0.10 k/uL 04/28/2022 11:03 AM EST [facility] NRBC 0.0 /100 WBC 04/28/2022 11:03 AM EST [facility] Absolute nRBC <0.01 <0.01 k/uL 04/28/2022 11:03 AM EST [facility] Diff Type Auto 04/28/2022 11:03 AM EST [facility] Blood BLOOD SPECIMEN / Unknown Central Line / Unknown 04/28/2022 5:50 AM EST 04/28/2022 9:52 AM EST [facility] - 04/28/2022 11:03 AM EST This is an appended report. These results have been appended to a previously verified report. us Giuseppe Kent PHONOGRAPH NEEDLE TIP MAKER.AGENCY LEGAL COUNSEL LABORATORY Final Result [facility] [address] * (ABNORMAL) BASIC METABOLIC PNL (04/28/2022 5:50 AM EST) Pathologist [facility] Glucose 241(H) 74 - 99 mg/dL 04/28/2022 11:16 AM EST [facility] Comment: The [place] Diabetes [employer] (ADA) provides guidance for cutoff [...] Standards of Medical Care in Diabetes 2016, [place] [employer]. Diabetes Care. 2016.39(Suppl 1). BUN 13 9 - 24 mg/dL 04/28/2022 11:16 AM EST [facility] Creatinine 0.73 0.73 - 1.22 mg/dL 04/28/2022 11:16 AM [facility] Sodium 136 136 - 144 mmol/L 04/28/2022 11:16 AM [facility] Potassium 3.9 3.7 - 5.1 mmol/L 04/28/2022 11:16 AM [facility] Chloride 97 97 - 105 mmol/L 04/28/2022 11:16 AM [facility] CO2 29 22 - 30 mmol/L 04/28/2022 11:16 AM [facility] Anion Gap 10 9 - 18 mmol/L 04/28/2022 11:16 AM [facility] Calcium, Total 9.5 8.5 - 10.2 mg/dL 04/28/2022 11:16 AM [facility] Estimated Glomerular Filtration Rate 107 >=60 mL/min/1. 73m 04/28/2022 11:16 AM [facility] Comment:Estimated Glomerular Filtration Rate (eGFR) [...] SPECIMEN / Unknown Central Line / Unknown 04/28/2022 5:50 AM EST 04/28/2022 9:52 AM EST us Giuseppe Kent PHONOGRAPH NEEDLE TIP MAKER.[facility] Final Result [facility] [address] [place] [address], documented in this encounter Visit Diagnoses Not on filedocumented in this encounter
--- OUTSIDE RECORDS SUMMARY | 2025-03-20 11:12 | XMS_ITS | Encounter Summary ---
Author Organization [facility] Address [facility] [place] [address] Care Team Providers Care Control Panel Builder Name Role Phone Unavailable Primary Care Provider Unavailabl e Source Comments In the event this information is protected by the Federal Confidentiality of Alcohol and Drug AbusePatient Records regulations: The Federal rules restrict any use of the information to criminally investigate or prosecute any alcohol or drug abuse patient.[facility] Encounter Details Date Type Department Care Team (Late st Contact Info) Description 05/10/2022 Lab Requisition [facility] [id number] [phone] Amanda Soliman APRN.MEDICAL PLANNER [address] [place] [address] Social History Tobacco Use Types [...] Procedure Name Priority Date/Time Associated Diagnosis Comments COMPREHENSIVE METABOLIC PANEL Routine 05/10/2022 6:00 AM EST CBC + DIFF Routine 05/10/2022 6:00 AM EST documented in this encounter Results * (ABNORMAL) COMP METABOLIC PANEL (05/10/2022 6:00 AM EST) Pathologist [facility] Protein, Total 6.7 6.3 - 8.0 g/dL 05/10/2022 12:03 PM EST [facility] Albumin 3.6(L) 3.9 - 4.9 g/dL 05/10/2022 12:03 PM EST [facility] Calcium, Total 9.7 8.5 - 10.2 mg/dL 05/10/2022 12:03 PM EST [facility] Bilirubin, Total 0.5 0.2 - 1.3 mg/dL 05/10/2022 12:03 PM EST [facility] Alkaline Phosphatase 116(H) 38 - 113 U/L 05/10/2022 12:03 PM EST [facility] AST 25 14 - 40 U/L 05/10/2022 12:03 PM EST [facility] ALT 17 10 - 54 U/L 05/10/2022 12:03 PM EST [facility] Glucose 157(H) 74 - 99 mg/dL 05/10/2022 12:03 PM EST [facility] Comment: The [place] Diabetes Association (ADA) provides guidance for cutoff [...] Standards of Medical Care in Diabetes 2016, [place] [employer]. Diabetes Care. 2016.39(Suppl 1). BUN 18 9 - 24 mg/dL 05/10/2022 12:03 PM [facility] Creatinine 0.91 0.73 - 1.22 mg/dL 05/10/2022 12:03 PM [facility] Sodium 137 136 - 144 mmol/L 05/10/2022 12:03 PM [facility] Potassium 4.1 3.7 - 5.1 mmol/L 05/10/2022 12:03 PM [facility] Chloride 98 97 - 105 mmol/L 05/10/2022 12:03 PM [facility] CO2 28 22 - 30 mmol/L 05/10/2022 12:03 PM [facility] Anion Gap 11 9 - 18 mmol/L 05/10/2022 12:03 PM [facility] Estimated Glomerular Filtration Rate 100 >=60 mL/min/1. 73m 05/10/2022 12:03 PM [facility] Comment:Estimated Glomerular Filtration Rate (eGFR) [...] SPECIMEN / Unknown Central Line / Unknown 05/10/2022 6:00 AM EST 05/10/2022 11:18 AM EST us Amanda Soliman C T TECH.MEDICAL PLANNER LABORATORY Final Re sult [facility] [address] [place] [address], * (ABNORMAL) CBC + DIFF (05/10/2022 6:00 AM EST) WBC 9.11 3.70 - 11.00 k/uL 05/10/2022 12:06 PM [facility] RBC 3.46(L) 4.20 - 6.00 m/uL 05/10/2022 12:06 PM [facility] Hemoglobin 11.0(L) 13.0 - 17.0 g/dL 05/10/2022 12:06 PM [facility] Hematocrit 32.3(L) 39.0 - 51.0 % 05/10/2022 12:06 PM [facility] MCV 93.4 80.0 - 100.0 fL 05/10/2022 12:06 PM [facility] MCH 31.8 26.0 - 34.0 pg 05/10/2022 12:06 PM [facility] MCHC 34.1 30.5 - 36.0 g/dL 05/10/2022 12:06 PM [facility] RDW-CV 14.6 11.5 - 15.0 % 05/10/2022 12:06 PM [facility] Platelet Count 203 150 - 400 k/uL 05/10/2022 12:06 PM [facility] MPV 10.9 9.0 - 12.7 fL 05/10/2022 12:06 PM [facility] NRBC 0.0 /100 WBC 05/10/2022 12:06 PM [facility] Absolute nRBC <0.01 <0.01 k/uL 05/10/2022 12:06 PM [facility] Neutrophils % 73.0 % 05/10/2022 12:06 PM [facility] Abs Neut (Segs + Bands) 6.65 1.45 - 7.50 k/uL 05/10/2022 12:06 PM [facility] Lymphocytes % 14.0 % 05/10/2022 12:06 PM [facility] Abs Lymph (Normal + Reactive) 1.28 1.00 - 4.00 k/uL 05/10/2022 12:06 PM [facility] Monocytes % 6.0 % 05/10/2022 12:06 PM [facility] Abs [place] 0.55 <0.87 k/uL 05/10/2022 12:06 PM [facility] Eosin% 2.0 % 05/10/2022 12:06 PM [facility] Abs Eosin 0.18 <0.46 k/uL 05/10/2022 12:06 PM [facility] Basophils % 3.0 % 05/10/2022 12:06 PM [facility] Abs Baso 0.27(H) <0.11 k/uL 05/10/2022 12:06 PM [facility] Alsen % 1.0 % 05/10/2022 12:06 PM EST [facility] Myelo % 1.0 % 05/10/2022 12:06 PM EST [facility] Left Shift Present 05/10/2022 12:06 PM EST [facility] Platelet Estimate Adequate 05/10/2022 12:06 PM EST [facility] Red Cell Morph Reviewed: unremarkable 05/10/2022 12:06 PM EST [facility] Diff Type Manual 05/10/2022 12:06 PM EST [facility] Blood BLOOD SPECIMEN / Unknown Central Line / Unknown 05/10/2022 6:00 AM EST 05/10/2022 11:18 AM EST Narrative [facility] - 05/10/2022 12:06 PM EST This is an appended report. These results have been appended to a previously verified report. us Amanda Soliman C T TECH.MEDICAL PLANNER LABORATORY Final Re sult [facility] [address] documented in this encounter Visit Diagnoses Not on filedocumented in this encounter
--- OUTSIDE RECORDS SUMMARY | 2025-03-20 11:12 | XMS_ITS | Encounter Summary ---
Author Organization [facility] Address [facility] [place] [address] Care Team Providers Care Eeg Technician Name Role Phone Unavailable Primary Care Provider Unavailabl e Source Comments In the event this information is protected by the Federal Confidentiality of Alcohol and Drug AbusePatient Records regulations: The Federal rules restrict any use of the information to criminally investigate or prosecute any alcohol or drug abuse patient.[facility] Encounter Details Date Type Department Care Team (Late st Contact Info) Description 04/24/2022 Lab Requisition [facility] [address] [place] [address] Giuseppe Kent, STOCK DEALER.HOTEL VALET ATTENDANT [address] [place], [place] [id number] Social History Tobacco Use Types Packs/Day Years [...] Procedure Name Priority Date/Time Associated Diagnosis Comments ALBUMIN SERUM ASSAY STAT 04/24/2022 1 :16 PM EDT CBC + DIFF Routine 04/24/2022 5:30 AM EDT BASIC METABOLIC PANEL Routine 04/24/2022 5:30 AM EDT documented in this encounter Results * (ABNORMAL) ALBUMIN BLD (04/24/2022 1:16 PM EDT) Albumin 3.3(L) 3.9 - 4.9 g/dL 04/24/2022 1:57 PM EDT [facility] Blood BLOOD SPECIMEN / Unknown 04/24/2022 1:16 PM EDT 04/24/2022 1:44 PM EDT Khris Noriega MD LABORATORY Final Result [facility] [address] [facility] [place] [address], [place] * BASIC METABOLIC PNL (04/24/2022 5:30 AM EDT) Glucose 84 74 - 99 mg/dL 04/24/2022 12:18 PM EDT [facility] Comment: The [place] Diabetes Association (ADA) provides guidance for cutoff [...] Standards of Medical Care in Diabetes 2016, [place] [employer]. Diabetes Care. 2016.39(Suppl 1). BUN 19 9 - 24 mg/dL 04/24/2022 12:18 PM EDT [facility] Creatinine 0.87 0.73 - 1.22 mg/dL 04/24/2022 12:18 PM EDT [facility] Sodium 137 136 - 144 mmol/L 04/24/2022 12:18 PM EDT [facility] Potassium 3.9 3.7 - 5.1 mmol/L 04/24/2022 12:18 PM EDT [facility] Chloride 100 97 - 105 mmol/L 04/24/2022 12:18 PM EDT [facility] CO2 26 22 - 30 mmol/L 04/24/2022 12:18 PM EDT [facility] Anion Gap 11 9 - 18 mmol/L 04/24/2022 12:18 PM EDT [facility] Calcium, Total 9.7 8.5 - 10.2 mg/dL 04/24/2022 12:18 PM EDT [facility] Estimated Glomerular Filtration Rate 102 >=60 mL/min/1.7 3m 04/24/2022 12:18 PM EDT [facility] Comment:Estimated Glomerular Filtration Rate (eGFR) is [...] SPECIMEN / Unknown Central Line / Unknown 04/24/2022 5:30 AM EDT 04/24/2022 9:51 AM EDT us Giuseppe Kent STOCK DEALER.HOTEL VALET ATTENDANT LABORATORY Final Result [facility] [address] [place] [address], * (ABNORMAL) CBC + DIFF (04/24/2022 5:30 AM EDT) WBC 7.55 3.70 - 11.00 k/uL 04/24/2022 1:08 PM EDT [facility] RBC 3.31(L) 4.20 - 6.00 m/uL 04/24/2022 1:08 PM EDT [facility] Hemoglobin 10.4(L) 13.0 - 17.0 g/dL 04/24/2022 1:08 [facility] Hematocrit 30.4(L) 39.0 - 51.0 % 04/24/2022 1:08 PM EDT [facility] MCV 91.8 80.0 - 100.0 fL 04/24/2022 1:08 PM [facility] MCH 31.4 26.0 - 34.0 pg 04/24/2022 1:08 PM [facility] MCHC 34.2 30.5 - 36.0 g/dL 04/24/2022 1:08 PM [facility] RDW-CV 14.7 11.5 - 15.0 % 04/24/2022 1:08 PM [facility] Platelet Count 93(L) 150 - 400 k/uL 04/24/2022 1:08 PM [facility] Comment:No clot detected MPV 10.2 9.0 - 12.7 fL 04/24/2022 1:08 PM [facility] Neutrophils % 64.7 % 04/24/2022 1:08 PM [facility] Abs Neut 4.88 1.45 - 7.50 k/uL 04/24/2022 1:08 PM [facility] Lymphocytes % 23.8 % 04/24/2022 1:08 PM [facility] Abs Lymph 1.80 1.00 - 4.00 k/uL 04/24/2022 1:08 PM [facility] Monocytes % 7.4 % 04/24/2022 1:08 PM [facility] Abs [place] 0.56 <0.87 k/uL 04/24/2022 1:08 PM EDT [facility] Eosinophils % 1.2 % 04/24/2022 1:08 PM EDT [facility] Abs Eosin 0.09 <0.46 k/uL 04/24/2022 1:08 PM EDT [facility] Basophils % 0.4 % 04/24/2022 1:08 PM EDT [facility] Abs Baso 0.03 <0.11 k/uL 04/24/2022 1:08 PM [facility] Immature Granulocytes % 2.5 % 04/24/2022 1:08 PM EDT [facility] Abs Immature Gran 0.19(H) <0.10 k/uL 04/24/2022 1:08 PM EDT [facility] NRBC 0.0 /100 WBC 04/24/2022 1:08 PM EDT [facility] Absolute nRBC <0.01 <0.01 k/uL 04/24/2022 1:08 PM EDT [facility] Diff Type Auto 04/24/2022 1:08 PM EDT [facility] Blood BLOOD SPECIMEN / Unknown Central Line / Unknown 04/24/2022 5:30 AM EDT 04/24/2022 9:51 AM EDT Narrative [facility] - 04/24/2022 1:08 PM EDT This is an appended report. These results have been appended to a previously verified report. us Giuseppe Kent STOCK DEALER.HOTEL VALET ATTENDANT LABORATORY Final Result [facility] [address] documented in this encounter Visit Diagnoses Not on filedocumented in this encounter
--- OUTSIDE RECORDS SUMMARY | 2025-03-20 11:12 | XMS_ITS | Clinical Summary ---
Author Organization [facility] Address [address] [place] [address] Care Team Providers Care Production Machine Shop Supervisor Name Role Phone Unavailable Primary Care Provider Unavailabl e Allergies Active Allergy Reactions Criticality Noted Date Comments Acetaminophen Vomiting 12/27/2021 Hydrocodone Vomiting 12/27/2021 Medications No known medications Social History Tobacco Use Types Packs/Day Years Used Date Smoking Tobacco: Unknown Tobacco Cessation:Counseling Given: Not Answered Alcohol Use Standard Drinks/Week Comments Not Currently 0 (1 standard drink = 0.6 oz pur e alcohol) Sex and Gender Information Value Date Recorded Sex Assigned at Not on file Legal Sex Male 6:01 PM EDT Gender Identity Not on file Sexual Orientation Not on file Last Filed Vital Signs Vital Sign Reading Time Taken Comments Blood Pressure 144/82 04/25/2022 3:45 PM EDT Pulse 83 04/25/2022 3:45 PM EDT Temperature 37 C (98.6 F) 04/25/2022 11:54 AM EDT Respiratory Rate 18 04/25/2022 3:45 PM EDT Oxygen Saturation 100% 04/25/2022 3:45 PM EDT Inhaled Oxygen Concentration - - Weight 99.8 kg (220 lb) 04/25/2022 11:54 AM EDT Height - - Body Mass Index - - Plan of Treatment Health Maintenance Due Date Last Done Comments Anxiety Screening 1984 Depression Screening 1984 HIV Screening 1984 Hepatitis C Screening 1984 DTaP,Tdap,Td Vaccine (1 - Tdap) 1985 Hepatitis B Vaccine (1 of 3 - 19+ 3-dose series) 1985 CT Colonography 2011 Cologuard (FIT-DNA) 2011 Colonoscopy 2011 Colorectal Cancer Screening 2011 Fecal Occult Blood 2011 Prostate Cancer Screening Discussion 2011 Sigmoidoscopy 2011 Pneumococcal Vaccine: 50+ (1 of 1 - PCV) 2016 Shingrix Vaccine (1 of 2) 2016 Influenza Vaccine (#1) 2025 Diabetes Screening 06/17/2025 06/17/2022, 1 08/13/2021, 06/09/2022, Additional history exists Lipid Screening 04/05/2027 04/05/2022 Procedures Procedure Name Priority Date/Time Associated Diagnosis Comments COMPREHENSIVE METABOLIC PANEL Routine 06/17/2022 7:55 AM EST from Last 3 Months or Most Recently Relevant to Health Maintenance Results * (ABNORMAL) COMP METABOLIC PANEL (06/17/2022 7:55 AM EST) Protein, Total 6.6 6.3 - 8.0 g/dL 06/17/2022 11:28 AM EST [facility] Albumin 3.7(L) 3.9 - 4.9 g/dL 06/17/2022 11:28 AM EST [facility] Calcium, Total 9.5 8.5 - 10.2 mg/dL 06/17/2022 11:28 AM EST [facility] Bilirubin, Total 0.6 0.2 - 1.3 mg/dL 06/17/2022 11:28 AM EST [facility] Alkaline Phosphatase 134(H) 38 - 113 U/L 06/17/2022 11:28 AM EST [facility] AST 20 14 - 40 U/L 06/17/2022 11:28 AM EST [facility] ALT 20 10 - 54 U/L 06/17/2022 11:28 AM EST [facility] Glucose 241(H) 74 - 99 mg/dL 06/17/2022 11:28 AM EST [facility] Comment: The [place] Diabetes Association (ADA) provides guidance for cutoff [...] Standards of Medical Care in Diabetes 2016, [place] [employer] Association. Diabetes Care. 2016.39(Suppl 1). BUN 16 9 - 24 mg/dL 06/17/2022 11:28 AM EST [facility] Creatinine 0.76 0.73 - 1.22 mg/dL 06/17/2022 11:28 AM [facility] Sodium 137 136 - 144 mmol/L 06/17/2022 11:28 AM [facility] Potassium 4.1 3.7 - 5.1 mmol/L 06/17/2022 11:28 AM [facility] Chloride 98 97 - 105 mmol/L 06/17/2022 11:28 AM EST [facility] CO2 25 22 - 30 mmol/L 06/17/2022 11:28 AM [facility] Anion Gap 14 9 - 18 mmol/L 06/17/2022 11:28 AM [facility] Estimated Glomerular Filtration Rate 105 >=60 mL/min/1. 73m 06/17/2022 11:28 AM [facility] Comment:Estimated Glomerular Filtration Rate (eGFR) [...] actual GFR. Blood BLOOD SPECIMEN / Unknown Venipuncture / Unknown 06/17/2022 7:55 AM EST 06/17/2022 10:38 AM EST us Wyatt Slater MD LABORATORY Final Resu lt [facility] [address] [place] [address], from Last 3 Months or Most Recently Relevant to Health Maintenance Insurance [employer] PPO Member Subscriber Plan / Payer (Ef fective 2021-Present) Name:LEE JOHNSON Relation to Subscriber:Spouse Name:TERRI JOHNSON Date of :1968 (Home) Address: [address] [facility] Payer ID:Not on file Type:PPO Address: [facility] [address] [phone] Mail Code [address] [place], [place] [id number]
--- OUTSIDE RECORDS SUMMARY | 2025-03-20 11:12 | XMS_ITS | Encounter Summary ---
Author Organization [facility] Address [id number] [address] [place] [address] Care Team Providers Care Leaf Size Picker Name Role Phone Reza Smith NUTRITION HELPER-FORESTRY AID TECHNICIAN Primary Care Provider Reason for Visit * Reason Onset Date Comments questions regarding head CT 09/15/2022 Encounter Details Date Type Department Care Team (Late st Contact Info) Description 09/15/2022 Telephone [facility] [address] [place] [address] Kerry Kelly questions regarding head CT Social History Tobacco Use Types Packs/Day Years [...] PM EDT documented as of this encounter Miscellaneous Notes * Telephone Encounter - Kerry Kelly - 09/15/2022 10:29 AM EDT Patient called to inform us that [facility] still has no orders from us for a CT. Patient states that back in early June he had a CT and is wondering if we could just use that CT. A good contact number for the patient is [phone] Please advise documented in this encounter Plan of Treatment Not on file documented as of this encounter Goals Goal Patient Goal Type Associated Problems Recent Progress Patient-Stated? Author Patien will DC to [facility] General Yes Mackenzie Byers RN Note: Evaluation of progress towards goal: Pt will DC to [facility]. documented as of this encounter Visit Diagnoses Not on filedocumented in this encounter Care Teams Leaf Size Picker Relationship Specialty Start Date End Date Reza Smith APRN-TATUM PCP - General Nurse Practitioner 10/08/22 documented as of this encounter
--- OUTSIDE RECORDS SUMMARY | 2025-03-20 11:12 | XMS_ITS | Encounter Summary ---
Author Organization [facility] Address [id number] [address] [place] [address] Care Team Providers Care Flask Fitter Name Role Phone Reza Smith ROBERT-CORPORATE ACCOUNT EXECUTIVE Primary Care Provider Encounter Details Date Type Department Care Team (Late st Contact Info) Description 10/15/2022 Orders Only [facility] [address] [place] [phone] Hetal Nolasco, MAYELIN Cerebrovascular accident (CVA) due to occlusion of left middle cerebral artery ([facility]) Social History Tobacco Use Types Packs/Day Years [...] have Coronavirus / COVID-19? No / Unsure 09/24/2022 2:25 PM EDT documented as of this encounter Plan of Treatment Not on file documented as of this encounter Goals Goal Patient Goal Type Associated Problems Recent Progress Patient-Stated? Author Patien will DC to [facility] General Yes Mackenzie Byers RN Note: Evaluation of progress towards goal: Pt will DC to IPR. documented as of this encounter Procedures Procedure Name Priority Date/Time Associated Diagnosis Comments CT BRAIN WO CONT Routine 10/14/2022 Cerebrovascular accident (CVA) due to occlusion of left middle cerebral artery (CMS-HCC) documented in this encounter Results * CT brain without contrast (10/14/2022) Anatomical Region Laterality Modality Neuro, Head, Head and Neck, Neuro Covera N/A Computed Tomography Christa Arguello PA-C IMG CT ORDERABLES Final Resul t documented in this encounter Visit Diagnoses Diagnosis Cerebrovascular accident (CVA) due to occlusion of left middle cerebral artery (CMS-HCC) documented in this encounter Care Teams Flask Fitter Relationship Specialty Start Date End Date Reza Smith APRN-TATUM PCP - General Nurse Practitioner 10/08/22 documented as of this encounter
--- OUTSIDE RECORDS SUMMARY | 2025-03-20 11:12 | XMS_ITS | Encounter Summary ---
Author Organization [facility] Address [facility] [place] [address] Care Team Providers Care Semiconductors Wafer Breaker Name Role Phone Unavailable Primary Care Provider Unavailabl e Source Comments In the event this information is protected by the Federal Confidentiality of Alcohol and Drug AbusePatient Records regulations: The Federal rules restrict any use of the information to criminally investigate or prosecute any alcohol or drug abuse patient.[facility] Encounter Details Date Type Department Care Team (Late st Contact Info) Description 05/01/2022 Lab Requisition [facility] [address] [place] [address] Giuseppe Kent, PHYSICAL THERAPY AIDES TEACHER.BAND DIRECTOR [address] [place], [place] [id number] Social History Tobacco Use Types Packs/Day Years [...] Associated Diagnosis Comments CBC + DIFF Routine 05/01/2022 5:30 AM EST BASIC METABOLIC PANEL Routine 05/01/2022 5:30 AM EST documented in this encounter Results * (ABNORMAL) BASIC METABOLIC PNL (05/01/2022 5:30 AM EST) Glucose 202(H) 74 - 99 mg/dL 05/01/2022 10:37 AM EST [facility] Comment: The [place] Diabetes Association (ADA) provides guidance for cutoff [...] Standards of Medical Care in Diabetes 2016, [place] Diabetes Association. Diabetes Care. 2016.39(Suppl 1). BUN 18 9 - 24 mg/dL 05/01/2022 10:37 AM EST [facility] Creatinine 0.78 0.73 - 1.22 mg/dL 05/01/2022 10:37 AM EST [facility] Sodium 137 136 - 144 mmol/L 05/01/2022 10:37 AM EST [facility] Potassium 4.0 3.7 - 5.1 mmol/L 05/01/2022 10:37 AM EST [facility] Chloride 95(L) 97 - 105 mmol/L 05/01/2022 10:37 AM EST [facility] CO2 30 22 - 30 mmol/L 05/01/2022 10:37 AM EST [facility] Anion Gap 12 9 - 18 mmol/L 05/01/2022 10:37 AM EST [facility] Calcium, Total 9.7 8.5 - 10.2 mg/dL 05/01/2022 10:37 AM EST [facility] Estimated Glomerular Filtration Rate 105 >=60 mL/min/1. 73m 05/01/2022 10:37 AM [facility] Comment:Estimated Glomerular Filtration Rate (eGFR) is [...] SPECIMEN / Unknown Central Line / Unknown 05/01/2022 5:30 AM EST 05/01/2022 9:34 AM EST us Giuseppe Kent PHYSICAL THERAPY AIDES TEACHER.[facility] Final Result [facility] [address] [place] [address], * (ABNORMAL) CBC + DIFF (05/01/2022 5:30 AM EST) WBC 8.13 3.70 - 11.00 k/uL 05/01/2022 10:02 AM [facility] RBC 3.54(L) 4.20 - 6.00 m/uL 05/01/2022 10:02 AM [facility] Hemoglobin 11.2(L) 13.0 - 17.0 g/dL 05/01/2022 10:02 AM [facility] Hematocrit 32.7(L) 39.0 - 51.0 % 05/01/2022 10:02 AM [facility] MCV 92.4 80.0 - 100.0 fL 05/01/2022 10:02 AM [facility] MCH 31.6 26.0 - 34.0 pg 05/01/2022 10:02 AM [facility] MCHC 34.3 30.5 - 36.0 g/dL 05/01/2022 10:02 AM [facility] RDW-CV 14.6 11.5 - 15.0 % 05/01/2022 10:02 AM [facility] Platelet Count 145(L) 150 - 400 k/uL 05/01/2022 10:02 AM [facility] MPV 10.9 9.0 - 12.7 fL 05/01/2022 10:02 AM EST [facility] Neutrophils % 67.9 % 05/01/2022 10:02 AM EST [facility] Abs Neut 5.52 1.45 - 7.50 k/uL 05/01/2022 10:02 AM EST [facility] Lymphocytes % 18.9 % 05/01/2022 10:02 AM EST [facility] Abs Lymph 1.54 1.00 - 4.00 k/uL 05/01/2022 10:02 AM EST [facility] Monocytes % 8.5 % 05/01/2022 10:02 AM [facility] Abs [place] 0.69 <0.87 k/uL 05/01/2022 10:02 AM EST [facility] Eosinophils % 2.7 % 05/01/2022 10:02 AM EST [facility] Abs Eosin 0.22 <0.46 k/uL 05/01/2022 10:02 AM [facility] Basophils % 0.6 % 05/01/2022 10:02 AM EST [facility] Abs Baso 0.05 <0.11 k/uL 05/01/2022 10:02 AM [facility] Immature Granulocytes % 1.4 % 05/01/2022 10:02 AM [facility] Abs Immature Gran 0.11(H) <0.10 k/uL 05/01/2022 10:02 AM [facility] NRBC 0.0 /100 WBC 05/01/2022 10:02 AM [facility] Absolute nRBC <0.01 <0.01 k/uL 05/01/2022 10:02 AM [facility] Diff Type Auto 05/01/2022 10:02 AM [facility] Blood BLOOD SPECIMEN / Unknown Central Line / Unknown 05/01/2022 5:30 AM EST 05/01/2022 9:34 AM EST [facility] - 05/01/2022 10:02 AM EST This is an appended report. These results have been appended to a previously verified report. us Giuseppe Kent PHYSICAL THERAPY AIDES TEACHER.BAND DIRECTOR LABORATORY Final Result [facility] [address] [place] [address], documented in this encounter Visit Diagnoses Not on filedocumented in this encounter
--- OUTSIDE RECORDS SUMMARY | 2025-03-20 11:12 | XMS_ITS | Clinical Summary ---
Author Organization [facility] Address [id number] [address] [place] [address] Care Team Providers Care Metallurgical Laboratory Assistant Name Role Phone SmithReza garcia ROBERT-CARTOGRAPHY PROFESSOR Primary Care Provider Allergies Active Allergy Reactions Criticality Noted Date Comments Hydrocodone Vomiting 12/27/2021 Medications docusate sodium (COLACE) 100 mg capsule Take 1 capsule (100 mg total) by mouth in the morning and 1 capsule (100 mg total) before bedtime. Active FLUoxetine (PROzac) 20 mg capsule Take 1 capsule (20 mg total) by mouth in the morning. Active aspirin 81 mg chewable tablet Chew 1 tablet (81 mg total) and swallow in the morning. 3 Active dulaglutide 1.5 mg/0.5 mL pen injector 3 Active metoprolol tartrate (LOPRESSOR) 25 mg tablet Take 0.5 tablets (12.5 mg total) by mouth in the morning and 0.5 tablets (12.5 mg total) before bedtime. 3 Active midodrine (PROAMATINE) 2.5 mg tablet Take 1 tablet (2.5 mg total) by mouth 2 (two) times a day. 2 Active mirtazapine (REMERON) 45 MG tablet Take 1 tablet (45 mg total) by mouth nightly. 3 Active tamsulosin (FLOMAX) 0.4 mg capsule TAKE 1 CAPSULE BY MOUTH EVERY DAY ONE-HALF HOUR FOLLOWING THE SAME MEAL EACH DAY 3 Active baclofen 5 mg tablet Take by mouth in the morning and at bedtime. 3 Active atorvastatin (LIPITOR) 40 mg tablet 3 Active levETIRAcetam (KEPPRA) 500 mg tablet TAKE 1 TABLET BY MOUTH TWICE DAILY EVERY DAY 3 Active metFORMIN XR (GLUCOPHAGE XR) 500 mg 24 hr tablet TAKE 1 TABLET BY MOUTH EVERY DAY WITH EVENING meal 4 Active Active Problems Problem Noted Date Diagnosed Date Sequelae, post-stroke 12/23/2022 History of ischemic left MCA stroke 12/23/2022 Aphasia 12/23/2022 Ischemic cerebrovascular acc ident (CVA) due to hypercoagulable state 12/23/2022 Diabetes mellitus type 2 in nonobese 12/23/2022 Mixed hyperlipidemia 12/23/2022 Primary hypertension 12/23/2022 Spasticity as late effect of cerebrovascular acc ident (CVA) 12/23/2022 Alteration in skin integrity related to surgical incision 05/06/2022 Cerebrovascular accident 05/01/2022 CVA (cerebral vascular accident) 04/05/2022 Mandibular abscess 12/06/2018 Immunizations No known immunizations Social History Tobacco Use Types Packs/Day Years [...] Orientation Straight 09/12/2022 2: 37 PM EDT Last Filed Vital Signs Vital Sign Reading Time Taken Comments Blood Pressure 95/65 10/23/2023 11:02 AM EDT Pulse 92 10/23/2023 11:02 AM EDT Temperature 37.1 C (98.8 F) 05/09/2022 11:00 AM EST Respiratory Rate 18 05/09/2022 4:38 AM EST Oxygen Saturation 95% 05/09/2022 7:30 AM EST Inhaled Oxygen Concentration - - Weight 73.5 kg (162 lb) 10/23/2023 11:02 AM EDT Height 177.8 cm (5' 10 ) 10/23/2023 11:02 AM EDT Body Mass Index 23.24 10/23/2023 11:02 AM EDT Plan of Treatment Health Maintenance Due Date Last Done Comments Diabetic Ophthalmology Exam 1966 Statin Use: Diabetic 1966 Diabetic Foot Exam 1984 DTaP,Tdap and Td Vaccines (1 - Tdap) 1985 Zoster (Shingles) Vaccine (1 of 2) 2016 Adult BMI Screening 10/22/2024 10/23/2023 Depression Screening 10/22/2024 10/23/2023 Tobacco Screening 10/22/2024 10/23/2023 COVID-19 Vaccine ( season) 2025 04/24/2021, 09/13/2020, 08/23/2020 Influenza Vaccine 02/20/2025 Goals Goal Patient Goal Type Associated Problems Recent Progress Patient-Stated? Author Patien will DC to IPR General Yes Mackenzie Byers RN Note: Evaluation of progress towards goal: Pt will DC to [facility]. Medical Devices Implanted Type Area Driver Supervisor Device Identifier Shelf Expiration Date Model / Serial / Lot Patch Dura [id number] Drgrd Bvn Pricrd Strl Lf - [id number] Implanted:Qty : 1 on 04/07/2022 by Cm Hidalgo MD at [facility] Graft [employer]Cloud [facility] 12/18/2026 DG [id number] / / [id number] Patch Dura 7x5in Thk3.5mm Crnmxf Drmtrx-[place] + Npor Rgnrt Rpl [id number] - [id number] Implanted:Qty : 1 on 05/02/2022 by Cm Hidalgo MD at [facility] Graft [employer] 09/19/2024 [id number] / / [id number] Plate Bn 12mm 2 Hl Lp Bar Tab Unv Neuro Ii Crnmxf Ti Ns 1.5 - [id number] Implanted:Qty : 2 on 05/02/2022 by Cm Hidalgo MD at [facility] Plate [employer] [id number] / / Plate Bn 16mm 2 Hl Lp Unv Neuro Ii Crnmxf Ti Ns Lf 1.5mm Scr - [id number] Implanted:Qty : 4 on 05/02/2022 by Cm Hidalgo MD at [facility] Plate [employer] [id number] / / Screw Bn 4mm 1.5mm Slf Drl Xpn Crnmxf Strl - [id number] Implanted:Qty : 12 on 05/02/2022 by Cm Hidalgo MD at [facility] Screw [employer] [id number] / / Insurance [employer] Advance Directives * Full Code (Latest Code Status on File) Date Activated Date Inactivated Comments 05/01/2022 4:22 PM 05/09/2022 2:25 PM * Full Code Date Activated Date Inactivated Comments 04/05/2022 8:43 AM 04/18/2022 6:36 PM * Full Code Date Activated Date Inactivated Comments 12/06/2018 2:16 AM 12/09/2018 5:23 PM Care Teams Metallurgical Laboratory Assistant Relationship Specialty Start Date End Date Reza Smith APRN-CARTOGRAPHY PROFESSOR PCP - General Nurse Practitioner 10/08/22
--- OUTSIDE RECORDS SUMMARY | 2025-03-20 11:12 | XMS_ITS | Patient Health Record ---
Author Organization [facility] Address [address] [place] [address] Care Team Providers Care Manager Labor Relations Name Role Phone None, Unknown or Primary Care Provider Unavailab rocío Castrodominic Yonatan Unavailable [phone] Maty Foy Unavailable [phone] Allergies No Known Allergies Reason For Referral No Information Medications Medication SIG (Take, Route, Fr equency, Duration) Notes Start Date End Date Status Baclofen 10 MG/20ML as directed Intrathecal Active Keppra 500 MG 1 tablet Orally every 12 hrs 025 Active metFORMIN HCl 500 MG 1 tablet with a andres l Orally Once a day 06/29/2024 Active Aspirin 81 MG 1 tablet Orally Once a day 5 Active Lipitor 40 MG 1 tablet Orally Once a day 5 Active Mirtazapine 45 MG 1 tablet at bedtime Orally Once a day 06/29/2024 Active Flomax 0.4 MG 1 capsule Orally Once a day Active Social History Tobacco Use: Social History Observation Description Date Details (start date - stop date) Former Smoker NA - NA Tobacco Control (Standard) Question Answer Notes Tobacco use: Former smoker Additional Findings: Tobacco user Chews fine cut tobacco Problems Problem Type SNOMED Code ICD Code Onset Dates Problem Status W/U Status Risk Notes Problem Hypomagnesemia (156802105) Hypomagnesemia (E83.42) Active confirmed Problem Aphasia (32621870) Aphasia (R47.01) Active conf irmed Problem Iron deficiency anemia (04067698) Anemia, iron deficiency (D50.9) Active confirmed Problem Altered mental status (693834475) Altered mental status (R41.82) Active confirmed Problem Right hemiparesis (370468245) Right hemiparesis (G81.91) Active confirmed Problem Aphasia as late effect of cerebrovascular disease (156728339) Aphasia as late effect of cerebrovascular accident (CVA) (I69.320) Active confirmed Problem Gait difficulty (44683351) Gait difficulty (R26.9) Active confirmed Problem Type II diabetes mellitus without complication (672512525) Diabetes (E11.9) Active confirmed Vital Signs Heart Rate 114 /min 06/29/2024 Temperature 96.8 degrees Fahrenheit 06/29/2024 Oximetry 92 % 06/29/2024 Height 69 in 06/29/2024 Weight 158 lbs 06/29/2024 BMI 23.33 kg/m2 06/29/2024 Encounters Encounter Location Date Provider Diagnosis [facility] (PODIATRY) [address] [place] [address] [place] [address] 06/29/2024 Yonatan Manrique Contusion of right lesser toe(s) with damage to nail, initial encounter S90.221A Assessments Encounter Date Diagnosis (ICD Code) Assessment Notes Treatment Notes Treatment Clinical Notes Section Notes 06/29/2024 Contusion of right lesser toe(s) with damage to nail, initial encounter (ICD-10 - S90.221A) Patient is a 59-year-old male who suffered stroke in 2021 resulting in right-sided weakness. He had a minor injury leading to subungual hematoma which is stable. The nail is firmly attached therefore I did not recommend removing the nail. Great toe is also in good alignment and there is no swelling so there is not major concern for fracture.He is at high risk for decubitus ulceration therefore recommended waffle boots which were dispensed. He has an abnormal pulse exam and elongated toenails so the nails were sharply debrided without incident to patient satisfaction. He may follow-up every 3 months for routine nail care. is aware to monitor skin for any ulcerations and if so patient will follow-up in our wound center if this were to occur. Patient and are happy with this plan Plan Of Treatment No Information Insurance Providers Payer Name Payer Address Payer Phone Subscriber Number Group Number Insured Name Patient Relationship to Insured Coverage Start Date Coverage End Date O [employer] [address] [place] [address] [id number] Leta Johnson Spouse - patient is the spouse of the insured 3 Medical (General) History Medical History History ICD Code colon cancer diabetes stroke high scholesterol Surgical History Surgery Date(Month/Year) colon resection 01/10 craniotomy/ cranioplasty 05/13
--- OUTSIDE RECORDS SUMMARY | 2025-03-20 11:12 | XMS_ITS | Encounter Summary ---
Author Organization [facility] Address [facility] [place] [address] Care Team Providers Care Vine Fruit Farming Supervisor Name Role Phone Unavailable Primary Care Provider Unavailabl e Source Comments In the event this information is protected by the Federal Confidentiality of Alcohol and Drug AbusePatient Records regulations: The Federal rules restrict any use of the information to criminally investigate or prosecute any alcohol or drug abuse patient.[facility] Encounter Details Date Type Department Care Team (Late st Contact Info) Description 05/12/2022 Lab Requisition [facility] [address] [id number] Amanda Soliman APRN.[facility] [address] [place] [address] Social History Tobacco Use Types [...] Associated Diagnosis Comments URINALYSIS, WITH MICROSCOPIC Routine 05/12/2022 12:22 PM EST BACTERIAL CULTURE, URINE Routine 05/12/2022 12:22 PM EST COMPREHENSIVE METABOLIC PANEL Routine 05/12/2022 5:30 AM EST CBC + DIFF Routine 05/12/2022 5:30 AM EST documented in this encounter Results * URINE CULTURE (05/12/2022 12:22 PM EST) Culture, Urine No growth (<100 CFU/ml) 05/15/2022 10:41 AM EST [facility] Urine URINE SPECIMEN / Unknown 05/12/2022 12:22 PM EST 05/12/2022 4:39 PM EST us Khris Norieag MD MICROBIOLOGY Final Result [facility] [address] [id number], * (ABNORMAL) URINALYSIS, WITH MICROSCOPIC (05/12/2022 12:22 PM EST) Color Yellow Yellow 05/12/2022 4:51 PM EST [facility] Clarity Clear Clear 05/12/2022 4:51 PM EST [facility] Glucose, Urine Negative Negative 05/12/2022 4:51 PM EST [facility] Bilirubin, Urine Negative Negative 05/12/20 4:51 PM EST [facility] Ketones, Urine Negative Negative 05/12/2022 4:51 PM EST [facility] Specific [place], Ur 1.025 1.005 - 1.030 05/12/2022 4:51 PM EST [facility] Hemoglobin/Blood ,Ur Negative Negative 05/12/2022 4:51 PM EST [facility] pH, Urine 6.5 5.0 - 8.0 05/12/2022 4:51 PM EST [facility] Protein, Urine 1+(A) Negative 05/12/2022 4:51 PM EST [facility] Urobilinogen 1+(A) Negative 05/12/2022 4:51 PM EST [facility] Nitrites Negative Negative 05/12/2022 4:51 PM EST [facility] Leuk Esterase Negative Negative 05/12/2022 4:51 PM EST [facility] WBC, Urine 0-5 /HPF 0-5 /HPF 05/12/2022 4:51 PM EST [facility] RBC, Urine 0-3 /HPF 0-3 /HPF 05/12/2022 4:51 PM EST [facility] Casts, Hyaline 1-3 /LPF(A) 0 /LPF 4:51 PM EST [facility] Urine URINARY CATHETER SPECIMEN / Unknown 05/12/2022 12:22 PM EST 05/12/2022 4:39 PM EST us Khris Noriega MD LABORATORY Final Result [facility] [address] [place] [address], * (ABNORMAL) COMP METABOLIC PANEL (05/12/2022 5:30 AM EST) Protein, Total 7.1 6.3 - 8.0 g/dL 05/12/2022 1:12 PM [facility] Albumin 3.8(L) 3.9 - 4.9 g/dL 05/12/2022 1:12 PM [facility] Calcium, Total 10.1 8.5 - 10.2 mg/dL 05/12/2022 1:12 PM [facility] Bilirubin, Total 0.5 0.2 - 1.3 mg/dL 05/12/2022 1:12 PM [facility] Alkaline Phosphatase 136(H) 38 - 113 U/L 05/12/2022 1:12 PM [facility] AST 26 14 - 40 U/L 05/12/2022 1:12 PM [facility] ALT 20 10 - 54 U/L 05/12/2022 1:12 PM [facility] Glucose 182(H) 74 - 99 mg/dL 05/12/2022 1:12 PM [facility] Comment: The [place] Diabetes Association (ADA) provides guidance for cutoff [...] Standards of Medical Care in Diabetes 2016, [place] Diabetes Association. Diabetes Care. 2016.39(Suppl 1). BUN 28(H) 9 - 24 mg/dL 05/12/2022 1:12 PM [facility] Creatinine 1.00 0.73 - 1.22 mg/dL 05/12/2022 1:12 PM [facility] Sodium 143 136 - 144 mmol/L 05/12/2022 1:12 PM [facility] Potassium 3.8 3.7 - 5.1 mmol/L 05/12/2022 1:12 PM [facility] Chloride 99 97 - 105 mmol/L 05/12/2022 1:12 PM [facility] CO2 25 22 - 30 mmol/L 05/12/2022 1:12 PM [facility] Anion Gap 19(H) 9 - 18 mmol/L 05/12/2022 1:12 PM [facility] Estimated Glomerular Filtration Rate 89 >=60 mL/min/1. 73m 05/12/2022 1:12 PM [facility] Comment:Estimated Glomerular Filtration Rate (eGFR) is [...] SPECIMEN / Unknown Central Line / Unknown 05/12/2022 5:30 AM EST 05/12/2022 10:18 AM EST us Amanda Indiosaurabh CHEST PAINTING AND SEALING SUPERVISOR.[facility] Final Re sult [facility] [address] [place] [address], * (ABNORMAL) CBC + DIFF (05/12/2022 5:30 AM EST) WBC 11.96(H) 3.70 - 11.00 k/uL 05/12/2022 12:34 PM EST [facility] RBC 3.65(L) 4.20 - 6.00 m/uL 05/12/2022 12:34 PM [facility] Hemoglobin 11.3(L) 13.0 - 17.0 g/dL 05/12/2022 12:34 PM [facility] Hematocrit 34.9(L) 39.0 - 51.0 % 05/12/2022 12:34 PM [facility] MCV 95.6 80.0 - 100.0 fL 05/12/2022 12:34 PM [facility] MCH 31.0 26.0 - 34.0 pg 05/12/2022 12:34 PM [facility] MCHC 32.4 30.5 - 36.0 g/dL 05/12/2022 12:34 PM [facility] RDW-CV 14.5 11.5 - 15.0 % 05/12/2022 12:34 PM [facility] Platelet Count 208 150 - 400 k/uL 05/12/2022 12:34 PM [facility] MPV 10.6 9.0 - 12.7 fL 05/12/2022 12:34 PM [facility] Neutrophils % 69.6 % 05/12/2022 12:34 PM [facility] Abs Neut 8.33(H) 1.45 - 7.50 k/uL 05/12/2022 12:34 PM [facility] Lymphocytes % 16.1 % 05/12/2022 12:34 PM [facility] Abs Lymph 1.93 1.00 - 4.00 k/uL 05/12/2022 12:34 PM [facility] Monocytes % 10.7 % 05/12/2022 12:34 PM [facility] Abs [place] 1.28(H) <0.87 k/uL 05/12/2022 12:34 PM EST [facility] Eosinophils % 1.5 % 05/12/2022 12:34 PM EST [facility] Abs Eosin 0.18 <0.46 k/uL 05/12/2022 12:34 PM EST [facility] Basophils % 0.8 % 05/12/2022 12:34 PM EST [facility] Abs Baso 0.09 <0.11 k/uL 05/12/2022 12:34 PM EST [facility] Immature Granulocytes % 1.3 % 05/12/2022 12:34 PM EST [facility] Abs Immature Gran 0.15(H) <0.10 k/uL 05/12/2022 12:34 PM EST [facility] NRBC 0.0 /100 WBC 05/12/2022 12:34 PM EST [facility] Absolute nRBC <0.01 <0.01 k/uL 05/12/2022 12:34 PM EST [facility] Diff Type Auto 05/12/2022 12:34 PM EST [facility] Blood BLOOD SPECIMEN / Unknown Central Line / Unknown 05/12/2022 5:30 AM EST 05/12/2022 10:18 AM EST Narrative [facility] - 05/12/2022 12:34 PM EST This is an appended report. These results have been appended to a previously verified report. us Amanda Soliman CHEST PAINTING AND SEALING SUPERVISOR.[facility] Final Re sult [facility] [id number] documented in this encounter Visit Diagnoses Not on filedocumented in this encounter
--- OUTSIDE RECORDS SUMMARY | 2025-03-20 11:12 | XMS_ITS | Encounter Summary ---
Author Organization [employer] [facility] Address [id number] [address] [place] [address] Care Team Providers Care Core Sticker Name Role Phone Reza Smith ROBERT-WEATHERIZATION TECHNICIAN Primary Care Provider Encounter Details Date Type Department Care Team (Late st Contact Info) Description 09/01/2022 Orders Only [facility] [address] [place] [address] Ref Prov, [place] [address] Social History Tobacco Use Types Packs/Day Years [...] Diagnosis Comments CT BRAIN WO CONT Routine 06/29/2022 documented in this encounter Results * CT brain without contrast (06/29/2022) Anatomical Region Laterality Modality Neuro, Head, Head and Neck, Neuro Covera N/A Computed Tomography us Not In System Ref Prov IMG CT ORDERABLES Final R esult documented in this encounter Visit Diagnoses Not on filedocumented in this encounter Care Teams Core Sticker Relationship Specialty Start Date End Date Reza Smith APRN-WEATHERIZATION TECHNICIAN PCP - General Nurse Practitioner 10/08/22 documented as of this encounter
--- OUTSIDE RECORDS SUMMARY | 2025-03-20 11:12 | XMS_ITS | Clinical Summary ---
Author Organization [facility] Healthcare Address [address] [place] [address] Care Team Providers Care Certified Procedural Coder Name Role Phone Unavailable Primary Care Provider Unavailabl e Social History Tobacco Use Types Packs/Day Years Used Date Smoking Tobacco: Never Assessed Sex and Gender Information Value Date Recorded Sex Assigned at Not on file Legal Sex Male 6:52 PM EDT Gender Identity Not on file Sexual Orientation Not on file Last Filed Vital Signs Vital Sign Reading Time Taken Comments Blood Pressure 124/82 03/21/2022 12:00 PM EDT Pulse - - Temperature - - Respiratory Rate - - Oxygen Saturation - - Inhaled Oxygen Concentration - - Weight 75.3 kg (166 lb) 09/09/2022 12:00 PM EDT Height 175.3 cm (5' 9 ) 09/09/2022 12:00 PM EDT Body Mass Index 24.51 09/09/2022 12:00 PM EDT Plan of Treatment Not on file Insurance [employer]
--- OUTSIDE RECORDS SUMMARY | 2025-03-20 11:12 | XMS_ITS | Encounter Summary ---
Author Organization [facility] Address [facility] [place] [address] Care Team Providers Care Draw Machine Operator Name Role Phone Unavailable Primary Care Provider Unavailabl e Source Comments In the event this information is protected by the Federal Confidentiality of Alcohol and Drug AbusePatient Records regulations: The Federal rules restrict any use of the information to criminally investigate or prosecute any alcohol or drug abuse patient.[facility] Encounter Details Date Type Department Care Team (Late st Contact Info) Description 04/19/2022 Lab Requisition [facility] [address] [place] [address] Giuseppe Kent, PALLIATIVE CARE SPECIALIST.SUPERMARKET MANAGER [address] [place], [place] [id number] Social History Tobacco Use Types Packs/Day Years [...] Date/Time Associated Diagnosis Comments URINALYSIS, WITH MICROSCOPIC STAT 04/19/2022 12:56 PM EDT BACTERIAL CULTURE, URINE Routine 04/19/2022 12:56 PM EDT MAGNESIUM BLD Routine 04/19/2022 7:55 AM EDT D2D3 25-OH VITAMIN Routine 04/19/2022 7: 55 AM EDT VITAMIN B12 BLOOD Routine 04/19/2022 7:5 5 AM EDT PHOSPHORUS INORGANIC Routine 04/19/2022 7:55 AM EDT COMPREHENSIVE METABOLIC PANEL Routine 04/19/2022 7:55 AM EDT CBC + DIFF Routine 04/19/2022 7:55 AM EDT documented in this encounter Results * (ABNORMAL) URINALYSIS, WITH MICROSCOPIC (04/19/2022 12:56 PM EDT) Color Yellow Yellow 04/19/2022 2:28 PM EDT [facility] Clarity Clear Clear 04/19/2022 2:28 PM [facility] Glucose, Urine 1+(A) Negative 04/19/2022 2:28 PM [facility] Bilirubin, Urine Negative Negative 04/19/20 2:28 PM [facility] Ketones, Urine Negative Negative 04/19/2022 2:28 PM [facility] Specific [place], Ur 1.025 1.005 - 1.030 04/19/2022 2:28 PM [facility] Hemoglobin/Blood ,Ur Negative Negative 04/19/2022 2:28 PM [facility] pH, Urine 6.0 5.0 - 8.0 04/19/2022 2:28 PM [facility] Protein, Urine Negative Negative 04/19/2022 2:28 PM [facility] Urobilinogen 0.2 EU/dL 0.2-1.0 EU/dL 04/19/2022 2:28 PM [facility] Nitrites Negative Negative 04/19/2022 2:28 PM T [facility] Leuk Esterase Negative Negative 04/19/2022 2:28 PM EDT [facility] WBC, Urine 0-5 /HPF 0-5 /HPF 04/19/2022 2:28 PM EDT [facility] RBC, Urine 0-3 /HPF 0-3 /HPF 04/19/2022 2:28 PM EDT [facility] Urine URINE SPECIMEN OBTAINED BY CLEAN CATCH PROCEDURE / Unknown 04/19/2022 12:56 PM EDT 04/19/2022 1:57 PM EDT Nilay Pinedo DO LABORATORY Final Result [facility] [address] [place] [address], [place] * (ABNORMAL) URINE CULTURE (04/19/2022 12:56 PM EDT) Culture, Urine <10,000 CFU/ml Lactose negative gram negative bacilli(A) 04/20/2022 7:06 PM EDT [facility] Comment:Insignificant colony count. No further workup. Urine URINE SPECIMEN OBTAINED BY CLEAN CATCH PROCEDURE / Unknown 04/19/2022 12:56 PM EDT 04/19/2022 2:13 PM EDT Nilay Pinedo DO MICROBIOLOGY Final Result [facility] [address] [address], [place] * VITAMIN B12 BLOOD (04/19/2022 7:55 AM EDT) Vitamin B12 658 232 - 1,245 pg/mL 04/19/2022 6:41 PM EDT [facility] Blood BLOOD SPECIMEN / Unknown 04/19/2022 7:55 AM EDT 04/19/2022 9:17 AM EDT Giuseppe Kent PALLIATIVE CARE SPECIALIST.SUPERMARKET MANAGER LABORATORY Final Result [facility] [address] [address], [place] * (ABNORMAL) 25-HYDROXY D2+D3 (04/19/2022 7:55 AM EDT) 25-Hydroxyvitamin D2 <5.0 ng/mL 04/24/2022 1:53 PM EDT [facility] 25-Hydroxyvitamin D3 23.1 ng/mL 04/24/2022 1:53 PM EDT [facility] 25-Hydroxyvitamin D Total 23.1(L) 30.0 - 100.0 ng/mL 04/24/2022 1:53 PM EDT [facility] Comment: Deficient: <20.1 ng/mL Insufficient: 20.1 - 29.9 ng/mL Sufficient: 30.0 - 100.0 ng/mL Toxic: >150.0 ng/mL Reference: Kamran THAKUR, N Engl J Med (2007)[id number]:266-81 This test was developed and its performance characteristics determined by the Pathology and Laboratory Medicine [place] at the [facility]. The U.S. Food and Drug Administration has not approved or cleared this test, however, FDA clearance or approval is not currently required for clinical use. Blood BLOOD SPECIMEN / Unknown 04/19/2022 7:55 AM EDT 04/19/2022 9:17 AM EDT Giuseppe Kent APRN.[facility] LAB[facility]ATORY Final Result [facility] [address] [address], [place] * PHOSPHORUS INORGANIC (04/19/2022 7:55 AM EDT) Phosphorus 3.1 2.7 - 4.8 mg/dL 04/19/2022 11:10 AM EDT [facility] Blood BLOOD SPECIMEN / Unknown 04/19/2022 7:55 AM EDT 04/19/2022 9:17 AM EDT Giuseppe Kent APRN.CNP LABORATORY Final Result Performing Organization Address City/[facility]/ZIP Co de Phone Number [facility] [address] [place] [address], * MAGNESIUM BLD (04/19/2022 7:55 AM EDT) Pathologist [facility] Magnesium 2.1 1.7 - 2.3 mg/dL 04/19/2022 11:10 AM EDT [facility] Blood BLOOD SPECIMEN / Unknown 04/19/2022 7:55 AM EDT 04/19/2022 9:17 AM EDT Giuseppe Kent PALLIATIVE CARE SPECIALIST.SUPERMARKET MANAGER LABORATORY Final Result Performing Organization Address [facility] Co de Phone Number [facility] [address] [place] [address], [place] * (ABNORMAL) COMP METABOLIC PANEL (04/19/2022 7:55 AM EDT) [facility] Protein, Total 6.1(L) 6.3 - 8.0 g/dL 04/19/2022 11:10 AM EDT [facility] Albumin 3.2(L) 3.9 - 4.9 g/dL 04/19/2022 11:10 [facility] Calcium, Total 9.1 8.5 - 10.2 mg/dL 04/19/2022 11:10 AM EDT [facility] Bilirubin, Total 0.5 0.2 - 1.3 mg/dL 04/19/2022 11:10 AM [facility] Alkaline Phosphatase 60 38 - 113 U/L 04/19/2022 11:10 AM EDT [facility] AST 49(H) 14 - 40 U/L 04/19/2022 11:10 AM [facility] ALT 36 10 - 54 U/L 04/19/2022 11:10 AM EDT [facility] Glucose 142(H) 74 - 99 mg/dL 04/19/2022 11:10 AM EDT [facility] Comment: The [place] Diabetes Association (ADA) provides guidance for cutoff [...] Standards of Medical Care in Diabetes 2016, [place] [employer]. Diabetes Care. 2016.39(Suppl 1). BUN 25(H) 9 - 24 mg/dL 04/19/2022 11:10 AM EDT [facility] Creatinine 0.84 0.73 - 1.22 mg/dL 04/19/2022 11:10 AM [facility] Sodium 136 136 - 144 mmol/L 04/19/2022 11:10 AM [facility] Potassium 4.3 3.7 - 5.1 mmol/L 04/19/2022 11:10 AM [facility] Chloride 99 97 - 105 mmol/L 04/19/2022 11:10 AM [facility] CO2 26 22 - 30 mmol/L 04/19/2022 11:10 AM [facility] Anion Gap 11 9 - 18 mmol/L 04/19/2022 11:10 AM [facility] Estimated Glomerular Filtration Rate 103 >=60 mL/min/1. 73m 04/19/2022 11:10 AM [facility] Comment:Estimated Glomerular Filtration Rate (eGFR) [...] actual GFR. Blood BLOOD SPECIMEN / Unknown 04/19/2022 7:55 AM EDT 04/19/2022 9:17 AM EDT us Giuseppe Kent PALLIATIVE CARE SPECIALIST.SUPERMARKET MANAGER LABORATORY Final Result [facility] [address] [place] [address], [place] * (ABNORMAL) CBC + DIFF (04/19/2022 7:55 AM EDT) [facility] WBC 6.38 3.70 - 11.00 k/uL 04/19/2022 11:36 AM [facility] RBC 3.22(L) 4.20 - 6.00 m/uL 04/19/2022 11:36 AM [facility] Hemoglobin 10.2(L) 13.0 - 17.0 g/dL 04/19/2022 11:36 AM [facility] Hematocrit 29.6(L) 39.0 - 51.0 % 04/19/2022 11:36 AM [facility] MCV 91.9 80.0 - 100.0 fL 04/19/2022 11:36 AM [facility] MCH 31.7 26.0 - 34.0 pg 04/19/2022 11:36 AM [facility] MCHC 34.5 30.5 - 36.0 g/dL 04/19/2022 11:36 AM [facility] RDW-CV 13.9 11.5 - 15.0 % 04/19/2022 11:36 AM [facility] Platelet Count 155 150 - 400 k/uL 04/19/2022 11:36 AM [facility] MPV 11.8 9.0 - 12.7 fL 04/19/2022 11:36 AM [facility] NRBC 0.0 /100 WBC 04/19/2022 11:36 AM [facility] Absolute nRBC <0.01 <0.01 k/uL 04/19/2022 11:36 AM [facility] Neutrophils % 65.0 % 04/19/2022 11:36 AM [facility] Abs Neut (Segs + Bands) 4.15 1.45 - 7.50 k/uL 04/19/2022 11:36 AM [facility] Lymphocytes % 20.0 % 04/19/2022 11:36 AM [facility] Abs Lymph (Normal + Reactive) 1.28 1.00 - 4.00 k/uL 04/19/2022 11:36 AM [facility] Monocytes % 9.0 % 04/19/2022 11:36 AM [facility] Abs [place] 0.57 <0.87 k/uL 04/19/2022 11:36 AM EDT [facility] Eosin% 3.0 % 04/19/2022 11:36 AM EDT [facility] Abs Eosin 0.19 <0.46 k/uL 04/19/2022 11:36 AM EDT [facility] Basophils % 0.0 % 04/19/2022 11:36 AM EDT [facility] Abs Baso 0.00 <0.11 k/uL 04/19/2022 11:36 AM EDT [facility] [place] % 2.0 % 04/19/2022 11:36 AM EDT [facility] Myelo % 1.0 % 04/19/2022 11:36 AM EDT [facility] Left Shift Present 04/19/2022 11:36 AM EDT [facility] Platelet Estimate Adequate 04/19/2022 11:36 AM EDT [facility] Red Cell Morph Reviewed: unremarkable 04/19/2022 11:36 AM EDT [facility] Diff Type Manual 04/19/2022 11:36 AM EDT [facility] Blood BLOOD SPECIMEN / Unknown 04/19/2022 7:55 AM EDT 04/19/2022 9:17 AM EDT Narrative [facility] - 04/19/2022 11:36 AM EDT This is an appended report. These results have been appended to a previously verified report. us Giuseppe Kent PALLIATIVE CARE SPECIALIST.SUPERMARKET MANAGER LABORATORY Final Result Performing Organization Address City/State/[facility] Co de Phone Number [facility] [address] documented in this encounter Visit Diagnoses Not on filedocumented in this encounter
--- OUTSIDE RECORDS SUMMARY | 2025-03-20 11:13 | XMS_ITS | Encounter Summary ---
Author Organization [facility] Address [facility] [place] [address] Care Team Providers Care Engineering Document Control Clerk Name Role Phone Unavailable Primary Care Provider Unavailabl e Source Comments In the event this information is protected by the Federal Confidentiality of Alcohol and Drug AbusePatient Records regulations: The Federal rules restrict any use of the information to criminally investigate or prosecute any alcohol or drug abuse patient.[facility] Encounter Details Date Type Department Care Team (Late st Contact Info) Description 05/23/2022 Lab Requisition [facility] [address] [place], [place] [id number] [place] [address] [place], [place] [id number] Social History Tobacco Use Types Packs/Day Years [...] suspected to have Coronavirus/COVID-19? No / Unsure 05/23/2022 1:33 PM EST documented as of this encounter Plan of Treatment Not on file documented as of this encounter Procedures Procedure Name Priority Date/Time Associated Diagnosis Comments COVID NAAT, UPPER RESPIRATORY, ROUTINE Routine 05/23/2022 1:30 PM EST documented in this encounter Results * 2019 CORONAVIRUS (05/23/2022 1:30 PM EST) SARS-CoV-2 (Agent of COVID-19) RNA SARS-CoV-2 (Agent of COVID-19) Not Detected by RT-PCR or equivalent method. Not Detected AMPARO JAMIE [address] 05/24/2022 2:44 AM EST [facility] Comment: This test was developed and its performance characteristics determined [facility] [place]. This test has been authorized by FDA under an Emergency Use Authorization (EUA). This test has been validated in accordance with the FDA's Guidance Document Policy for Diagnostics Testing in Laboratories Certified to Perform High Complexity Testing under CLIA prior to Emergency use Authorization for Coronavirus Disease 2019 during the Public Health Emergency issued on August 20, 2019. Test performed by [facility], [facility] [place], [address] [place] [address]. Nasopharyngeal SWAB OF INTERNAL NOSE / Unknown 05/23/2022 1:30 PM EST 05/23/2022 3:05 PM EST Nilay Pinedo DO MICROBIOLOGY Final Result [facility] [address] [facility] Desk [address] documented in this encounter Visit Diagnoses Not on filedocumented in this encounter
--- OUTSIDE RECORDS SUMMARY | 2025-03-20 11:13 | XMS_ITS | Encounter Summary ---
Author Organization [facility] Address [facility] [place] [address] Care Team Providers Care Milieu Coordinator Name Role Phone Unavailable Primary Care Provider Unavailabl e Source Comments In the event this information is protected by the Federal Confidentiality of Alcohol and Drug AbusePatient Records regulations: The Federal rules restrict any use of the information to criminally investigate or prosecute any alcohol or drug abuse patient.[facility] Encounter Details Date Type Department Care Team (Late st Contact Info) Description 06/04/2022 Lab Requisition [facility] [address] [place], [place] [phone] [place] [address] [place] [address] Social History Tobacco Use Types Packs/Day Years [...] Procedure Name Priority Date/Time Associated Diagnosis Comments BACTERIAL CULTURE, BLOOD STAT 06/04/2022 1:06 PM EST COMPREHENSIVE METABOLIC PANEL STAT 06/04/2022 10:09 AM EST CBC + DIFF STAT 06/04/2022 10:09 AM EST documented in this encounter Results * BLOOD CULTURE (06/04/2022 1:06 PM EST) Pathologist [facility] Culture, Blood No growth 5 days 06/09/2022 9:01 PM EST [facility] Blood BLOOD SPECIMEN / Unknown 06/04/2022 1:06 PM EST 06/04/2022 4:58 PM EST us Khris Noriega MD MICROBIOLOGY Final Result Performing Organization Address City/State/[facility] Co de Phone Number [facility] [address] [facility] [address], * (ABNORMAL) COMP METABOLIC PANEL (06/04/2022 10:09 AM EST) Pathologist [facility] Protein, Total 7.2 6.3 - 8.0 g/dL 06/04/2022 5:[address] [facility] Albumin 4.0 3.9 - 4.9 g/dL 06/04/2022 5:[address] [facility] Calcium, Total 10.0 8.5 - 10.2 mg/dL 06/04/2022 5:[address] [facility] Bilirubin, Total 0.6 0.2 - 1.3 mg/dL 06/04/2022 5:[address] [facility] Alkaline Phosphatase 127(H) 38 - 113 U/L 06/04/2022 5:[address] [facility] AST 31 14 - 40 U/L 06/04/2022 5:[address] [facility] ALT 28 10 - 54 U/L 06/04/2022 5:[address] [facility] Glucose 193(H) 74 - 99 mg/dL 06/04/2022 5:[address] [facility] Comment: The [place] Diabetes Association (ADA) provides guidance for cutoff [...] Standards of Medical Care in Diabetes 2016, [place] [employer]. Diabetes Care. 2016.39(Suppl 1). BUN 23 9 - 24 mg/dL 06/04/2022 5:[address] [facility] Creatinine 0.85 0.73 - 1.22 mg/dL 06/04/2022 5:[address] [facility] Sodium 139 136 - 144 mmol/L 06/04/2022 5:[address] [facility] Potassium 3.8 3.7 - 5.1 mmol/L 06/04/2022 5:[address] [facility] Chloride 95(L) 97 - 105 mmol/L 06/04/2022 5:[address] [facility] CO2 27 22 - 30 mmol/L 06/04/2022 5:[address] [facility] Anion Gap 17 9 - 18 mmol/L 06/04/2022 5:[address] [facility] Estimated Glomerular Filtration Rate 102 >=60 mL/min/1. 73m 06/04/2022 5:[address] [facility] Comment:Estimated Glomerular Filtration Rate (eGFR) [...] actual GFR. Blood BLOOD SPECIMEN / Unknown 06/04/2022 10:09 AM EST 06/04/2022 4:59 PM EST us Khris Noriega MD LABORATORY Final Result [facility] [address] [place] [address], [place] * CBC + DIFF (06/04/2022 10:09 AM EST) WBC 7.17 3.70 - 11.00 k/uL 06/04/2022 5:[address] [facility] RBC 4.22 4.20 - 6.00 m/uL 06/04/2022 5:[address] [facility] Hemoglobin 13.0 13.0 - 17.0 g/dL 06/04/2022 5:[address] [facility] Hematocrit 39.4 39.0 - 51.0 % 06/04/2022 5:[address] [facility] MCV 93.4 80.0 - 100.0 fL 06/04/2022 5:[address] [facility] MCH 30.8 26.0 - 34.0 pg 06/04/2022 5:[address] [facility] MCHC 33.0 30.5 - 36.0 g/dL 06/04/2022 5:[address] [facility] RDW-CV 13.5 11.5 - 15.0 % 06/04/2022 5:[address] [facility] Platelet Count 171 150 - 400 k/uL 06/04/2022 5:[address] [facility] MPV 11.1 9.0 - 12.7 fL 06/04/2022 5:[address] [facility] Neutrophils % 67.5 % 06/04/2022 5:[address] [facility] Abs Neut 4.85 1.45 - 7.50 k/uL 06/04/2022 5:[address] [facility] Lymphocytes % 20.1 % 06/04/2022 5:[address] [facility] Abs Lymph 1.44 1.00 - 4.00 k/uL 06/04/2022 5:[address] [facility] Monocytes % 9.5 % 06/04/2022 5:[address] [facility] Abs [place]oup 0.68 <0.87 k/uL 06/04/2022 5:[address] [facility] Eosinophils % 1.7 % 06/04/2022 5:[address] [facility] Abs Eosin 0.12 <0.46 k/uL 06/04/2022 5:[address] [facility] Basophils % 0.6 % 06/04/2022 5:[address] [facility] Abs Baso 0.04 <0.11 k/uL 06/04/2022 5:[address] [facility] Immature Granulocytes % 0.6 % 06/04/2022 5:[address] [facility] Abs Immature Gran 0.04 <0.10 k/uL 022 5:[address] [facility] NRBC 0.0 /100 WBC 06/04/2022 5:[address] [facility] Absolute nRBC <0.01 <0.01 k/uL 06/04/2022 5:[address] [facility] Diff Type Auto 06/04/2022 5:[address] [facility] Blood BLOOD SPECIMEN / Unknown 06/04/2022 10:09 AM EST 06/04/2022 4:59 PM [facility]ORATORY - 06/04/2022 5:04 PM EST This is an appended report. These results have been appended to a previously verified report. us Khris Noriega MD LABORATORY Final Result [facility] [address] [facility] [place] [address], documented in this encounter Visit Diagnoses Not on filedocumented in this encounter
--- NOTE | 2025-03-20 11:21 | CT_ITS ---
The [address] [address] Patient Name: DAISY DEMARCO MRN: [id number] date: 1965 Sex: M Assigned Patient Location: ER Current Patient Location: ER Accession/Order Number: [id number] Exam Date: 03/20/2025 11:55 Report Date: 03/20/2025 13:07 At the request of: MIREYA WOLFE DO Procedure: CT angio neck CT angio head, CT angio neck 03/20/2025 12:09 PM SIGNS AND SYMPTOMS: ^h/o stroke, PLUMMER, vertigo CONTRAST: 100 mL of intravenous Omnipaque 350 TECHNIQUE: Multi-detector CT angiography axial slices of the head and neck were obtained during intravenous administration of IV contrast material. Sagittal, coronal, and 3-D reconstructions were performed and viewed on a separate workstation. CT was performed with one or more of the following dose reduction techniques: Automated exposure control, adjustment of the mA and/or kV according to patient size, or use of iterative reconstruction technique. Stenoses were measured using the NASCET criteria. COMPARISON: 03/20/2025 and 02/22/2024 FINDINGS: CTA HEAD: The superior cerebellar arteries, posterior inferior cerebellar arteries, and the basilar artery are within normal limits. The posterior cerebral arteries are unremarkable. The intracranial segments of the internal carotid arteries are within normal limits. There is chronic opacity of the left middle cerebral artery M1 segment similar to the prior exam consistent with a remote left MCA territory infarct. Anterior communicating artery is patent. Posterior communicating arteries are present. The deep venous system and dural venous systems appear to be patent. No bony abnormalities are appreciated. There is evidence of previous right frontal and temporal craniotomy. CTA NECK: There is a normal three-vessel arch. The subclavian arteries are within normal limits. The vertebral arteries arise from the subclavian arteries. Calcified plaque is noted in the origins of the vertebral arteries with moderate narrowing of the origin on the right. The vertebral arteries are normal in course and caliber up to the skull base otherwise. Calcified plaque is noted in the carotid bifurcations with less than 20% stenosis. Visualized lung parenchyma is clear. Degenerative changes are noted in the cervical and thoracic spine. No acute bony abnormalities are identified. The paraspinous soft tissues are within normal limits. CT/CT angio head IMPRESSION: There is a remote occlusion of the left middle cerebral artery M1 segment. This is unchanged. Calcified plaque is noted in the carotid bifurcations with less than 20% stenosis bilaterally. Impression dictated by: Constantino Bishop M.D. 03/20/2025 1:07 PM Dictation Location: [place] [address] Electronically authenticated by: [id number] Y Date: 03/20/2025 13:07
--- NOTE | 2025-03-20 11:21 | CT_ITS ---
The [address] [address] Patient Name: DAISY DEMARCO MRN: [id number] date: 1965 Sex: M Assigned Patient Location: ER Current Patient Location: ER Accession/Order Number: [id number] Exam Date: 03/20/2025 11:55 Report Date: 03/20/2025 12:57 At the request of: MIREYA WOLFE DO Procedure: CT head/brain wo con CT head/brain wo con 03/20/2025 12:09 PM SIGNS AND SYMPTOMS: ^h/o stroke, PLUMMER, vertigo TECHNIQUE:Multi-detector CT axial slices of the brain were obtained without IV contrast. CT was performed with one or more of the following dose reduction techniques: Automated exposure control, adjustment of the mA and/or kV according to patient size, or use of iterative reconstruction technique. COMPARISON: 02/22/2024 FINDINGS: There is no shift of the midline structures, acute intracranial bleeding, mass effects, or evidence of acute ischemia. Gliosis and encephalomalacia is noted in the left MCA territory consistent with a remote infarct. Calcifications are noted along the falx. There is periventricular white matter hypoattenuation. A remote lacunar infarct is noted in the caudate on the right. The ventricular system is normal in size. The brainstem and the cerebellum are unremarkable. The visualized intraorbital contents, the visualized paranasal sinuses, and the infratemporal soft tissues show no acute abnormality. The osseous structures in the skull base and the calvarium show no acute abnormality. There is evidence of previous left frontal and parietal craniotomy. CT/CT head/brain wo con IMPRESSION: No acute intracranial pathology. There is a remote infarct in the right MCA territory. There is a remote lacunar infarct in the caudate on the right. There is evidence of previous right frontal and parietal craniotomy. Impression dictated by: Constantino Bishop M.D. 03/20/2025 12:57 PM Dictation Location: [place] [address] Electronically authenticated by: [id number] Y Date: 03/20/2025 12:57
--- NOTE | 2025-03-20 11:21 | CT_ITS ---
The [address] [address] Patient Name: DAISY DEMARCO MRN: [id number] date: 1965 Sex: M Assigned Patient Location: ER Current Patient Location: ER Accession/Order Number: [id number] Exam Date: 03/20/2025 11:55 Report Date: 03/20/2025 13:07 At the request of: MIREYA WOLFE DO Procedure: CT angio neck CT angio head, CT angio neck 03/20/2025 12:09 PM SIGNS AND SYMPTOMS: ^h/o stroke, PLUMMER, vertigo CONTRAST: 100 mL of intravenous Omnipaque 350 TECHNIQUE: Multi-detector CT angiography axial slices of the head and neck were obtained during intravenous administration of IV contrast material. Sagittal, coronal, and 3-D reconstructions were performed and viewed on a separate workstation. CT was performed with one or more of the following dose reduction techniques: Automated exposure control, adjustment of the mA and/or kV according to patient size, or use of iterative reconstruction technique. Stenoses were measured using the NASCET criteria. COMPARISON: 03/20/2025 and 02/22/2024 FINDINGS: CTA HEAD: The superior cerebellar arteries, posterior inferior cerebellar arteries, and the basilar artery are within normal limits. The posterior cerebral arteries are unremarkable. The intracranial segments of the internal carotid arteries are within normal limits. There is chronic opacity of the left middle cerebral artery M1 segment similar to the prior exam consistent with a remote left MCA territory infarct. Anterior communicating artery is patent. Posterior communicating arteries are present. The deep venous system and dural venous systems appear to be patent. No bony abnormalities are appreciated. There is evidence of previous right frontal and temporal craniotomy. CTA NECK: There is a normal three-vessel arch. The subclavian arteries are within normal limits. The vertebral arteries arise from the subclavian arteries. Calcified plaque is noted in the origins of the vertebral arteries with moderate narrowing of the origin on the right. The vertebral arteries are normal in course and caliber up to the skull base otherwise. Calcified plaque is noted in the carotid bifurcations with less than 20% stenosis. Visualized lung parenchyma is clear. Degenerative changes are noted in the cervical and thoracic spine. No acute bony abnormalities are identified. The paraspinous soft tissues are within normal limits. 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 This is unchanged. Calcified plaque is noted in the carotid bifurcations with less than 20% stenosis bilaterally. Impression dictated by: Constantino Bishop M.D. 03/20/2025 1:07 PM Dictation Location: [place] [address] Electronically authenticated by: [id number] Y Date: 03/20/2025 13:07
--- NOTE | 2025-03-20 11:23 | ECG_ITS ---
The [facility] Test Date: 2025-03-20 Pat Name: DAISY DEMARCO Department: Room: - Gender: Male [employer]: : 1965 Requested By: Order Number: [id number] Reading MD: DILIP TRORES Measurements Intervals [place] Rate: 82 P: 37 AR: 174 QRS: 34 QRSD: 76 T: 74 QT: 382 QTc: 421 Interpretive Statements 1100 Sinus rhythm [address] T wave abnormality 9130 borderline ECG Compared to ECG 02/22/2024 11:52:35 Sinus tachycardia no longer present Electronically Signed On 03-20-2025 15:29:23 EDT by DILIP TORRES
--- NOTE | 2025-03-20 11:48 | ED.GENADUL1 ---
HPI HPI - General Adult General Chief complaint: Weakness Stated complaint: DIZZINESS, HEADACHE, WEAKNESS Time Seen by Provider: 03/20/25 11:20 Source: patient and family Mode of arrival: Wheelchair Limitations: language barrier and physical limitation Limitations comment: patient had a stroke 3 years ago weakness on the right side- can only answer yes and no History of Present Illness HPI narrative: Patient is a 59-year-old male presenting to the emergency department for concerns of headaches, episodes of unresponsiveness, and dizziness/vertigo over the last 2 weeks. The patient presents with his who helps provide history. The patient was sent in by his PCP for diagnostic testing given his concerning symptoms. 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 He also has a history of colon cancer diagnosed in 2022, s/p hemicolectomy, not currently undergoing treatment, and in remission. The states that the patient is having episodes of dizziness, usually worse with exertion. He also has been complaining of left-sided headaches. Additionally, the patient will sometimes go briefly unresponsive, not responding to any questions before coming to after a few seconds. She states that these episodes have gotten more frequent over the last 2 weeks. Patient is otherwise been in his normal state of health, and is currently asymptomatic. He denies any new neurologic deficits or complaints. He has no chest pain or shortness of breath. No weight loss/weight changes, though he does have slightly decreased appetite. No nausea, vomiting, diarrhea, constipation, or change in stool caliber. Related Data Home Medications ?Medication ?Instructions ?Recorded ?Confirmed aspirin 81 mg capsule 81 mg PO DAILY 02/22/24 02/22/24 atorvastatin 40 mg tablet 40 mg PO DAILY 02/22/24 02/22/24 baclofen 5 mg tablet 5 mg PO Q12H PRN spasms 02/22/24 02/22/24 levetiracetam 500 mg tablet 500 mg PO Q12H 02/22/24 02/22/24 loratadine 10 mg tablet 10 mg PO DAILY 02/22/24 02/22/24 (Allerclear) metformin 500 mg tablet,extended 500 mg PO DAILY 02/22/24 02/22/24 release 24 hr mirtazapine 45 mg tablet 45 mg PO .QHS 02/22/24 02/22/24 tamsulosin 0.4 mg capsule 0.4 mg PO DAILY 02/22/24 02/22/24 Previous Rx's ?Medication ?Instructions ?Recorded amoxicillin 875 mg-potassium 1 tab PO Q12H #20 tabs 02/23/24 clavulanate 125 mg tablet magnesium oxide 400 mg (241.3 mg 400 mg PO BID #60 tabs 02/23/24 magnesium) tablet Allergies Allergy/AdvReac Type Severity Reaction Status Date / Time No Known Drug Allergies Allergy Verified 03/20/25 11:11 Opioid HPI Opioid Management Most Recent Opioid Data: Last Pain Scale 6 02/23/24, 10:51 Last ORT Total Score 3 02/22/24, 16:40 Last ORT Risk Category Low Risk 02/22/24, 16:40 Ur Phencyclidine Scrn, (NEGATIVE) Negative 02/22/24, 18:45 Review of Systems ROS Status of ROS 10 or more systems reviewed and unremarkable except as noted in history and below [facility] Medical History (Updated 03/20/25 @ 13:12 by Carlin Connors DO) Hypomagnesemia ?E83.42 - Hypomagnesemia (ICD-10) Neurological deficit present ?R29.818 - Other symptoms and signs involving the nervous system (ICD-10) Generalized muscle weakness ?M62.81 - Muscle weakness (generalized) (ICD-10) Altered mental status ?R41.82 - Altered mental status, unspecified (ICD-10) Hyperlipidemia ?E78.5 - Hyperlipidemia, unspecified (ICD-10) Diabetes ?E11.9 - Type 2 diabetes mellitus without complications (ICD-10) Seizure disorder ?G40.909 - Epilepsy, unspecified, not intractable, without status epilepticus (ICD-10) Colon cancer ?C18.9 - Malignant neoplasm of colon, unspecified (ICD-10) CVA (cerebral vascular accident) ?I63.9 - Cerebral infarction, unspecified (ICD-10) Surgical History (Updated 02/22/24 @ 17:11 by Serena Biggs RN) History of colon resection ?Z90.49 - Acquired absence of other specified parts of digestive tract (ICD-10) History of cranioplasty ?Z98.890 - Other specified postprocedural states (ICD-10) H/O craniotomy ?Z98.890 - Other specified postprocedural states (ICD-10) Family History (Updated 02/22/24 @ 17:13 by Serena Biggs RN) Father Family history of COPD (chronic obstructive pulmonary disease) Family history of cancer Family history of stroke Mother Family history of stroke Social History (Updated 02/22/24 @ 17:13 by Serena Biggs RN) Within the past year, how often did you have a drink containing alcohol: never Score interpretation: A score less than 4 is consistent with normal alcohol consumption. Smoking status: Former smoker Non-prescribed substance use: denies use Highest level of school completed/degree received: high school graduate Little interest or pleasure in doing things: not at all Feeling down, depressed, or hopeless: not at all Exam Narrative Exam Narrative: CONSTITUTIONAL: Well-appearing, expressive aphasia but able to answering questions and following commands appropriately SKIN: Was warm and dry. EYES: No gross abnormality. No scleral icterus. EARS, NOSE, THROAT: Moist oral mucosa. RESPIRATORY: Clear to auscultation bilaterally, no wheezes, crackles, or stridor, no use of accessory muscles CARDIOVASCULAR: Normal rate and regular rhythm. There is no S3, S4, murmur, rub. GASTROINTESTINAL: Abdomen was soft, non-tender, and non-distended. There is no guarding or rebound tenderness MUSCULOSKELETAL: There was no lower extremity edema, erythema, or tenderness. NEUROLOGIC: Patient is awake and alert. Dysarthric. Good strength in the left upper/lower extremity. Chronic 0/5 strength in the right upper/lower extremity. Right-sided hemianopsia redemonstrated. Mild left-sided facial droop. EOMI. Constitutional Vital Signs, click to edit/add: Last Vital Signs Temp 97.8 F 03/20/25 11:02 Pulse 88 03/20/25 11:02 Resp 20 03/20/25 11:02 BP 135/89 03/20/25 11:02 Pulse Ox 99 03/20/25 11:02 O2 Del Method Room Air 03/20/25 11:02 Course Vital Signs Vital signs: Vital Signs Temperature 97.8 F 03/20/25 11:02 Pulse Rate 88 03/20/25 11:02 Respiratory Rate 20 03/20/25 11:02 Blood Pressure 135/89 03/20/25 11:02 Pulse Oximetry 99 03/20/25 11:02 Oxygen Delivery Method Room Air 03/20/25 11:02 Temperature 97.8 F 03/20/25 11:02 Pulse Rate 88 03/20/25 11:02 Respiratory Rate 20 03/20/25 11:02 Blood Pressure 135/89 03/20/25 11:02 Pulse Oximetry 99 03/20/25 11:02 Oxygen Delivery Method Room Air 03/20/25 11:02 Medical Decision Making MDM Narrative Medical decision making narrative: Patient is a 59-year-old male presenting to the emergency department with request of his PCP, and accompanied by his , for evaluation of intermittent episodes of dizziness, headache, brief episodes of unresponsiveness, worsening over the last 2 weeks. Of note, the patient has a history of prior CVA with residual right sided hemiparesis and colon cancer currently in remission diagnosed back in 2022 s/p hemicolectomy. Vital signs on arrival were within normal limits. He is afebrile and hemodynamically stable. Examination as noted above. He has no new appreciable neurologic deficits on my exam. Differential diagnosis includes vertebrobasilar insufficiency, subacute CVA, focal seizures, brain metastasis, migraine headaches, BPPV, arrhythmia, ACS, or other electrolyte/metabolic derangement. IV was established and laboratory studies were obtained. CT/CTA of the head/neck were ordered. 12 Lead EKG: Normal sinus rhythm at a rate of 82. Normal axis. No ST segment elevations. QRS, MA, and QTc interval within normal limits. Final impression: normal sinus rhythm without evidence of acute myocardial ischemia. Laboratory studies were unremarkable. No significant electrolyte or metabolic derangement. No evidence of acute kidney injury. Mild anemia and thrombocytopenia but that is baseline. No transaminitis or hyperbilirubinemia. Troponin nonelevated. CT/CTA head and neck independently reviewed/interpreted by myself demonstrated no acute intracranial pathology, large vessel occlusion, aneurysm, or hemorrhage. Evidence of prior left MCA infarct. On reevaluation, patient is asymptomatic and feels well. I do believe the patient is stable for discharge. Patient's presentation may be secondary to focal seizures or perhaps peripheral vertigo, however an exact etiology is hard to determine in the ED. They were instructed to follow up with their PCP for further care. Return precautions were given including any new or worsening symptoms. Patient understands and agrees to the plan. FINAL IMPRESSION: #Acute dizziness, headache, currently asymptomatic #History of left MCA stroke DISPOSITION: Discharged home CONDITION: Good Medical Records Medical records reviewed: Yes I reviewed the patient's medical records Lab Data Lab results reviewed: Yes I reviewed the patient's lab results Labs: Lab Results 03/20/25 Range/Units 11:52 WBC 5.6 (4.0-11.0) 10^3/uL RBC 3.82 L (4.70-6.10) 10^6/uL Hgb 11.9 L (14.0-18.0) g/dL Hct 34.5 L (42.0-54.0) % MCV 90.3 (80.0-94.0) fL MCH 31.2 (25.9-34.0) pg MCHC 34.5 (29.9-35.2) g/dL RDW 13.8 (11.0-15.0) % Plt Count 122 L (150-450) 10^3/uL MPV 9.1 L (9.5-13.5) fL Neut % (Auto) 65.9 (43.0-75.0) % Lymph % (Auto) 22.7 (20.5-60.0) % Walton % (Auto) 6.2 (1.7-12.0) % Eos % (Auto) 3.6 (0.9-7.0) % Baso % (Auto) 0.7 (0.2-2.0) % Neut # (Auto) 3.7 (1.4-6.5) 10^3/uL Lymph # (Auto) 1.3 (1.2-3.8) 10^3/uL Walton # (Auto) 0.4 (0.3-0.8) 10^3/uL Eos # (Auto) 0.2 (0.0-0.7) 10^3/uL Baso # (Auto) 0.0 (0.0-0.1) 10^3/uL Abs Immat Gran (auto) 0.05 H (0.00-0.03) 10^3/uL Imm/Tot Granulo (auto) 0.9 H (0.0-0.5) % Sodium 137 (136-145) mmol/L Potassium 4.0 (3.5-5.1) mmol/L Chloride 100 (98-107) mmol/L Carbon Dioxide 25.6 (21.0-32.0) mmol/L Anion Gap 15.4 BUN 12.0 (7.0-18.0) mg/dL Creatinine 0.90 (0.70-1.30) mg/dL Est GFR ( Amer) >60 (>=60 mL/min/1.73m^2) Est GFR (Non-Af Amer) >60 (>=60 mL/min/1.73m^2) BUN/Creatinine Ratio 13.3 Glucose 151 H (74-106) mg/dL Calcium 8.8 (8.5-10.1) mg/dL Total Bilirubin 0.7 (0.2-1.0) mg/dL AST 20 (15-37) U/L ALT 30 (16-63) U/L Alkaline Phosphatase 128 H (46-116) U/L Troponin I High Sens 4.7 (4.0-76.1) pg/mL Total Protein 6.8 (6.4-8.2) g/dL Albumin 3.2 L (3.4-5.0) g/dL Globulin 3.6 g/dL Albumin/Globulin Ratio 0.[address] scan - head: Attestation: I personally reviewed and interpreted this imaging study as follows: Radiologist's impression: ITS Impressions Head CT 03/20/25 11:21 IMPRESSION: No acute intracranial pathology. There is a remote infarct in the right MCA territory. There is a remote lacunar infarct in the caudate on the right. There is evidence of previous right frontal and parietal craniotomy. Impression dictated by: Constantino Bishop M.D. 03/20/2025 12:57 PM Dictation Location: [place] [address] Electronically authenticated by: [id number] Y Date: 03/20/2025 12:57 Head CTA 03/20/25 11:21 IMPRESSION: There is a remote occlusion of the left middle cerebral artery M1 segment. This is unchanged. Calcified plaque is noted in the carotid bifurcations with less than 20% stenosis bilaterally. Impression dictated by: Constantino Bishop M.D. 03/20/2025 1:07 PM Dictation Location: [facility] Electron[facility] authenticated by: [id number] Y Date: 03/20/2025 13:07 Neck CTA 03/20/25 11:21 IMPRESSION: There is a remote occlusion of the left middle cerebral artery M1 segment. This is unchanged. Calcified plaque is noted in the carotid bifurcations with less than 20% stenosis bilaterally. Impression dictated by: Constantino Bishop M.D. 03/20/2025 1:07 PM Dictation Location: [place] [address] Electronically authenticated by: [id number] Y Date: 03/20/2025 13:07 ECG Data Attestation: I personally reviewed and interpreted this ECG as follows: Discharge Plan Discharge Chief Complaint: Weakness Clinical Impression: Dizziness Patient Disposition: Home, Self-Care Time of Disposition Decision: 13:12 Condition: Good Mode of Transportation: Private Vehicle Prescriptions / Home Meds: No Action atorvastatin 40 mg tablet 40 mg PO DAILY baclofen 5 mg tablet 5 mg PO Q12H PRN (Reason: spasms) levetiracetam 500 mg tablet 500 mg PO Q12H metformin 500 mg tablet extended release 24 hr 500 mg PO DAILY mirtazapine 45 mg tablet 45 mg PO .QHS tamsulosin 0.4 mg capsule 0.4 mg PO DAILY aspirin 81 mg capsule 81 mg PO DAILY loratadine [Allerclear] 10 mg tablet 10 mg PO DAILY magnesium oxide 400 mg (241.3 mg magnesium) Tablet 400 mg PO BID Qty: 60 11RF amoxicillin-pot clavulanate 875-125 mg tablet 1 tab PO Q12H Qty: 20 0RF Print Language: Macedonian Instructions: Dizziness (ED) Referrals: Reza Smith NP [Primary Care Provider] - 1 week
[2025-03-20 12:06] LABS: Hematocrit 34.5 % (42.0-54.0); Hemoglobin 11.9 g/dL (14.0-18.0); Immature Granulocytes Abs Auto 0.05 10^3/uL (0.00-0.03); Immature Granulocytes Pct Auto 0.9 % (0.0-0.5); Lymphocytes Absolute Auto 1.3 10^3/uL (1.2-3.8); Mean Corpuscular HGB Conc 34.5 g/dL (29.9-35.2); Mean Corpuscular Hemoglobin 31.2 pg (25.9-34.0); Mean Corpuscular Volume 90.3 fL (80.0-94.0); Platelet Count 122 10^3/uL (150-450); Red Blood Count 3.82 10^6/uL (4.70-6.10); White Blood Count 5.6 10^3/uL (4.0-11.0)
[2025-03-20 12:18] LABS: Alanine Aminotransferase 30 U/L (16-63); Albumin Globulin Ratio 0.9; Albumin Level 3.2 g/dL (3.4-5.0); Alkaline Phosphatase 128 U/L (46-116); Anion Gap 15.4; Aspartate Amino Transferase 20 U/L (15-37); Blood Urea Nitrogen 12.0 mg/dL (7.0-18.0); Calcium 8.8 mg/dL (8.5-10.1); Carbon Dioxide 25.6 mmol/L (21.0-32.0); Chloride 100 mmol/L (98-107); Estimated GFR (African America >60 (>=60 mL/min/1.73m^2); Estimated GFR (Non-African Ame >60 (>=60 mL/min/1.73m^2); Globulin 3.6 g/dL; Glucose 151 mg/dL (74-106); Potassium 4.0 mmol/L (3.5-5.1); Sodium 137 mmol/L (136-145); Total Protein 6.8 g/dL (6.4-8.2)
[2025-03-20] MEDS: HEPARIN SODIUM (PORCINE) PF LOCK FLUSH 500 UNIT/5 ML SYRINGE 250 UNIT IV (13:43)
== END 2025-03-20 13:55 | disposition home or self-care (01) ==
PROVIDERS: Emergency Provider Student in an Organized Health Care Education/Training Program; PCP Nurse Practitioner Family
DX: R42 Dizziness and giddiness (principal); I69.351 Hemiplegia and hemiparesis following cerebral infarction affecting right dominant side; I69.320 Aphasia following cerebral infarction; Z85.038 Personal history of other malignant neoplasm of large intestine; Z90.49 Acquired absence of other specified parts of digestive tract; Z87.891 Personal history of nicotine dependence
CPT/HCPCS: 36415; 70450; 70496; 70498; 80053; 84484; 85025; 93005; 99285; J1642; Q9967